=== PATIENT | female | born 1935 | race Caucasian/White ===

== ENCOUNTER → 2017-07-10 | Outpatient (CLI) | payer MEDICARE, OTHER ==
[~2017-07-10] MED LIST: ACETAMINOPHEN325 M1; ALENDRONATE; ALPHAGAN P5 ML OPHTHALMIC; AMBIEN 10 MG TA10 MG PO; ASPIR 8181 M1 PO; ASPIR 8181 MG PO; ASPIRIN325; BRILINTA90 MG PO; BRIMONIDINE TAR15 M1 OP; CARVEDILOL12.5 MG PO; CEFTIN500 MG PO; DOCUSATE SODIU100 MG PO; DOXYCYCLINE 10100 MG PO; FIORICET; HYDROCHLOROTHIA25 M2 PO; HYDROCODON-ACE1 EAC7 PO; IMDUR 30 MG TAB30 M1 PO; IMITREX 50 MG T50 M1; IRON325 PO; LIPITOR 20 MG T20 M1 PO; LIPITOR10 MG PO; LOSARTAN-HCTZ1 EAC3 PO; MOBIC7.5 MG PO; NEURONTIN 300M300 M2 PO; NEURONTIN600 MG PO; NITROGLYCERIN0.4 MG SUBLING; OMEPRAZOLE20 M2; PLAVIX 300 MG300 M1 PO; PLAVIX 75 MG TA75 M1 PO; PREDNISONE 10 M10 MG PO; PREDNISONE 5 MG5 M1 PO; PROTONIX 20 MG20 M1 PO; SIMVASTATIN40 MG PO; SYNTHROID75 MCG PO; TOPROL XL25 MG PO; TYLENOL325 MG PO; VICODIN 5-5001 EACH PO; ZANAFLEX4 M1; ZANTAC 150MG T150 MG PO; ZETIA10 MG PO
--- NOTE | 2017-07-10 15:13 | 2DMMODE ---
[place] [address] 2 D/M-MODE ECHOCARDIOGRAM Name: SOFÍAJENI Yessica Room: [facility]#: [id number] Admission: 07/10/17 Attend Phys: Richardson Chavez Discharge: Date of : 35 Date of Service: 07/10/17 1513 Report #: [id number] THIS REPORT FOR: //name// APPROVED REPORT Study performed: 07/10/2017 10:04:02 EXAM: Comprehensive 2D, Doppler, and color-flow Echocardiogram Patient Location: Out-Patient Status: routine BSA: 1.61 HR: 88 bpm BP: 148/92 mmHg Other Information Study Quality: Good Indications CAD 2D Dimensions LVEF(%): 78.16 (>50%) IVSd: 12.21 (7-11mm) LVOT Diam: 19.54 (18-24mm) LVDd: 34.62 mm PWd: 10.58 (7-11mm) Ascending Ao: 21.55 (22-36mm) LVDs: 18.77 (25-40mm) Aortic Root: 25.09 mm Diaz's LVEF: 78.16 % Volumes Left Atrial Volume (Systole) LA ESV Index: 21.30 mL/m2 Aortic Valve AoV Peak Perico.: 1.20 m/s AO Peak Gr.: 5.80 mmHg LVOT Max P.04 mmHg AO Mean Gr.: 3.49 mmHg LVOT Mean P.03 mmHg LVOT Max V: 0.71 m/s AO V2 VTI: 25.65 cm LVOT Mean V: 0.47 m/s NAMAN (VTI): 1.97 cm2 LVOT V1 VTI: 16.85 cm Mitral Valve E/A Ratio: 0.52 MV Decel. Time: 219.63 [place] [address] 2 D/M-MODE ECHOCARDIOGRAM Name: JENI GORE Yessica Room: [facility]#: [id number] Admission: 07/10/17 Attend Phys: Richardson Chvaez Discharge: Date of : 35 Date of Service: 07/10/17 1513 Report #: [id number] MV E Max Perico.: 0.53 m/s MV PHT: 63.69 ms MVA (PHT): 3.45 cm2 TDI E/Lateral E': 10.60 E/Medial E': 5.89 Medial E' Perico.: 0.09 m/s Lateral E' Perico.: 0.05 m/s Pulmonary Valve PV Peak Perico.: 0.92 m/s PV Peak Gr.: 3.38 mmHg Left Ventricle The left ventricle is normal size. There is normal LV segmental wall motion. There is normal left ventricular wall thickness. Left ventricular systolic function is normal. The left ventricular ejection fraction is within the normal range. LVEF is 55-60%. Grade I - abnormal relaxation pattern. Right Ventricle The right ventricle is normal size. The right ventricular systolic function is normal. Atria Left atrium is mildly dilated. The right atrium size is normal. Aortic Valve The aortic valve is normal in structure. No aortic regurgitation is present. There is no aortic valvular stenosis. Mitral Valve The mitral valve is normal in structure. Trace mitral regurgitation. No evidence of mitral valve stenosis. Tricuspid Valve The tricuspid valve is normal in structure. There is no tricuspid valve regurgitation noted. Pulmonic Valve The pulmonary valve is normal in structure. There is no pulmonic valvular regurgitation. Great Vessels The aortic root is normal in size. IVC is normal in size and collapses with >50% [place] [address] 2 D/M-MODE ECHOCARDIOGRAM Name: JENI GORE [facility] [id number] Admission: 07/10/17 Attend Phys: Richardson Chavez Discharge: Date of : 35 Date of Service: 07/10/17 1513 Report #: [id number] Pericardium There is no pericardial effusion. <Conclusion> The left ventricle is normal size. There is normal left ventricular wall thickness. Left ventricular systolic function is normal. The left ventricular ejection fraction is within the normal range. LVEF is 55-60%. Grade I - abnormal relaxation pattern. The right ventricle is normal size. Left atrium is mildly dilated. The aortic valve is normal in structure. The mitral valve is normal in structure. Trace mitral regurgitation. The tricuspid valve is normal in structure. IVC is normal in size and collapses with >50% inspiration There is no pericardial effusion. There is normal LV segmental wall motion. <ELECTRONICALLY SIGNED> By: Elias Rivas MD, FACC 07/10/17 1513 1513 151 Elias Rivas MD, FACC /INF
== END ==
LOC: M.CRD 09:51
DX: I25.10 Atherosclerotic heart disease of native coronary artery without angina pectoris (principal); I10 Essential (primary) hypertension

== ENCOUNTER 2017-07-25 14:10 | Inpatient (IN) | payer MEDICARE, OTHER ==
[~2017-07-25] VITALS: Ht 147.3 cm; Wt 72.3 kg
[~2017-07-25 14:10] MED LIST changes: -ASPIR 8181 M1 PO; -CARVEDILOL12.5 MG PO; -DOCUSATE SODIU100 MG PO; -LIPITOR 20 MG T20 M1 PO; -LOSARTAN-HCTZ1 EAC3 PO; -PLAVIX 300 MG300 M1 PO; -SIMVASTATIN40 MG PO
[2017-07-25 14:16] VITALS: BP 174/85
[2017-07-25 14:59] LABS: ABSOLUTE BASOPHILS 0.1 thou/uL (0.0-0.2); ABSOLUTE EOSINOPHILS 0.1 thou/uL (0.0-0.7); ABSOLUTE LYMPHOCYTES 1.3 thou/uL (0.8-5.3); ABSOLUTE MONOCYTES 0.7 thou/uL (0.0-1.2); BASOPHILS 0.8 %; EOSINOPHILS 1.3 %; HEMATOCRIT 40.1 % (37.0-47.0); HEMOGLOBIN 13.2 gm/dL (12.0-15.0); LYMPHOCYTES 17.9 %; MCH 29.6 pg (26.0-34.0); MCHC 32.9 g/dL (28.0-37.0); MCV 90.1 fL (80.0-100.0); MONOCYTES 9.8 %; MPV 7.5 fl. (7.2-11.1); NUCLEATED RBCS 0 /100WBC; PLATELET COUNT* 257 thou/uL (150-400); POLYS 70.2 %; RBC 4.45 mil/uL (4.20-5.00); RDW-CV 17.6 % (10.5-14.5); WBC 7.1 thou/uL (4.0-11.0)
[2017-07-25 15:08] LABS: APTT 23.1 Seconds (25.0-31.3); PROTIME 9.9 Seconds (9.20-11.50)
[2017-07-25 15:12] LABS: ANION GAP 12 mmol/L (7-16); BUN 28 mg/dL (7-18); CALCIUM 9.2 mg/dL (8.5-10.1); CHLORIDE 107 mmol/L (98-107); CO2 24 mmol/L (21-32); CREATININE 1.5 mg/dL (0.6-1.3); GLUCOSE 113 mg/dL (70-99); POTASSIUM 4.2 mmol/L (3.5-5.1); SODIUM 143 mmol/L (136-145)
[2017-07-25 15:30] LABS: ALBUMIN 3.7 g/dL (3.4-5.0); ALKALINE PHOSPHATASE 120 U/L (46-116); CK-MB MASS 1.1 ng/mL (<0.5-3.6); LIPASE 228 U/L (73-393); MAGNESIUM 1.9 mg/dL (1.8-2.4); NT-PRO BRAIN NAT PEPTIDE 364 pg/mL (<300); SGOT 19 U/L (15-37); SGPT 21 U/L (30-65); TOTAL BILIRUBIN 0.3 mg/dL (<0.1-1.0); TOTAL PROTEIN 7.3 g/dL (6.4-8.2); TROPONIN-I LEVEL <0.06 ng/mL (<0.06)
[2017-07-25] MEDS ORDERED: CARVEDILOL12.5 MG PO (16:16)
[2017-07-25] MEDS ORDERED: SIMVASTATIN40 MG PO (16:17)
[2017-07-25] MEDS ORDERED: LOSARTAN-HCTZ1 EAC3 PO (16:17)
--- NOTE | 2017-07-25 16:31 | NUR ---
IV ATTEMPTS BY [address] OROURKE ATTEMPTED WITH ULTRA SOUND WITHOUT SUCCESS.
[2017-07-25 17:08] VITALS: BP 138/77
[2017-07-25 18:00] VITALS: BP 180/70
[2017-07-25] MEDS ORDERED: PLAVIX 75 MG TA75 M1 PO (18:23)
--- NOTE | 2017-07-25 18:30 | NUR ---
ER ADMIT TO ROOM 9 VIA CART. ADMISSION ASSESSMENT COMPLETE, DEFER TO COMPUTER CHARTING. PLEASANT, ALERT AND ORIENTED - REPORTS STARTED HAVING LEFT ARM PAIN YESTERDAY, SOME DIZZINESS - INSTURCTED HER TO GO ER. CONTINUES TO REPORT HAVING DISCOMFORT IN LEFT ARM - BUT REPORTS PAIN IMPROVED. DIVISION ORDER TECHNICIAN PLACED TRACKING SR, 02 ON 2L PER NC. ORIENTED TO ROOM/CALL LIGHT AND PLAN OF CARE, VERBALIZED UNDERSTANDING. INSTRUCTED TO CALL FOR ASSIST WHEN GETTING OUT OF BED FOR SAFETY AND TO NOTIFY NURSING PROMPTLY FOR CHEST PAIN OR CHANGE IN CONDITION. CALL LIGHT WITHIN REACH.
--- NOTE | 2017-07-25 18:55 | NUR ---
DR DUNLAP CALLING GIVEN UPDATE ON PATIENT NOTIFIED BP ELEVATED - PATIENT STATING HAS NOT TAKEN HOME MEDICATION TODAY, NEW ORDERS RECEIVED.
[2017-07-25 20:30] VITALS: BP 154/58
[2017-07-25 23:47] VITALS: BP 149/51
[2017-07-26] VITALS (19 sets, daily range): BP systolic 103–149; BP diastolic 42–113
--- NOTE | 2017-07-26 02:32 | NUR ---
TOOK PT INTO CARE AT 1930. ASSESSMENT COMPLETED CHARTED. PT IS A PLEASENT ELDERLY WOMAN WHO IS HERE FOR CHEST PAIN. PT IS NPO FOR CATH TOMORROW. PT IS COOPERATIVE AND IS ABLE TO MAKE NEEDS KNOWN. NO C/O PAIN, C/O INSOMNIA AROUND 12 AND GAVE AMBIEN. IV IN JUGULAR UNABLE TO USE, TRIED GETTING OTHER IVS STARTED WITH NO SUCCESS AND GOT AN ORDER TO START A PICC LINE IN AM. WILL CONTINUE WITH PLAN OF CARE.
[2017-07-26 02:47] LABS: HEMATOCRIT 37.7 % (37.0-47.0); HEMOGLOBIN 12.4 gm/dL (12.0-15.0); MCH 29.3 pg (26.0-34.0); MCV 88.9 fL (80.0-100.0); MPV 7.7 fl. (7.2-11.1); RBC 4.24 mil/uL (4.20-5.00); RDW-CV 17.4 % (10.5-14.5); WBC 6.9 thou/uL (4.0-11.0)
[2017-07-26 03:01] LABS: ANION GAP 13 mmol/L (7-16); BUN 27 mg/dL (7-18); CALCIUM 8.8 mg/dL (8.5-10.1); CHLORIDE 105 mmol/L (98-107); CHOLESTEROL 180 mg/dL (<200); CO2 23 mmol/L (21-32); CREATININE 1.2 mg/dL (0.6-1.3); GLUCOSE 105 mg/dL (70-99); HDL CHOLESTEROL 67 mg/dL (>40); LDL CHOLESTEROL 79 mg/dL (<100); POTASSIUM 3.6 mmol/L (3.5-5.1); SODIUM 141 mmol/L (136-145); TC:HDL 2.7 Ratio (Not establshd); TRIGLYCERIDE 174 mg/dL (<150); VLDL 35 mg/dL (<40)
[2017-07-26 03:04] LABS: SERUM ASSESSMENT CLEAR
[2017-07-26 03:14] LABS: ALBUMIN 3.5 g/dL (3.4-5.0); CALCIUM 8.7 mg/dL (8.5-10.1); CREATININE 1.2 mg/dL (0.6-1.3); MAGNESIUM 1.9 mg/dL (1.8-2.4); POTASSIUM 3.6 mmol/L (3.5-5.1); TOTAL BILIRUBIN 0.3 mg/dL (<0.1-1.0); TOTAL PROTEIN 6.4 g/dL (6.4-8.2)
--- NOTE | 2017-07-26 11:01 | EKG ---
[place] [address] ELECTROCARDIOGRAM REPORT Name: JENI GORE Room: [address] ADM IN .R.#: [id number] Admission: 07/25/17 Attend Phys: Aurelia Page MD Discharge: Date of : 35 Report #: [id number] THIS REPORT FOR: //name// [facility] ED Test Date: 2017-07-25 Test Time: 14:18:41 Pat Name: JENI GORE Department: Room: [facility] Gender: F Airplane Pilot Supervisor: FERNANDO : 1935 Requested By: Reno Villanueva Order Number: [id number] MD: Nazario Soto Measurements Intervals [place] Rate: 85 P: -23 MT: 152 QRS: -24 QRSD: 64 T: 104 QT: 491 QTc: 584 Interpretive Statements Sinus rhythm Abnormal R-wave progression, early transition Inferior infarct, old Consider anterior infarct Prolonged QT interval Compared to ECG 04/12/2017 08:12:11 Prolonged QT interval now present ST (T wave) deviation no longer present Myocardial infarct finding still present Electronically Signed On 07-26-2017 11:01:34 CDT by Nazario Soto [email or web address] <ELECTRONICALLY SIGNED> By: Nazario Soto MD, FACC 07/26/17 1101 1418 1418 Nazario Soto MD, FAC /EPI
--- NOTE | 2017-07-26 15:43 | NUR ---
CM ASSESSMENT: Pt is A&O. Resides at home alone. Supportive children. Pt is independent with ADLS. Pt states that she uses a cane for outside of the home, but states that she does have a walker at home from a past knee replacement. No hx of HH. Hx of skilled at [facility]. No home o2. Pt stated that she should be ready to dc tomorrow. No needs anticipated.
--- NOTE | 2017-07-26 16:00 | NUR ---
VSS, ASSUMED CARE IN THE AM, ASSESSMENT PERFORMED AND CHARTED, FALL PRECAUTIONS IN PLACE AND CALL LIGHT IN REACH, PT IS UP AD ARLETTE AND ON RA AND DENIES ANY PAIN, SHE IS TRACING SR ON THE MONITOR, AND IS A&O4, HER GOAL IS TO COMPLETE HEART CATH, WILL FOLLOW WITH PLAN OF CARE. AT THIS TIME, PT HAS COME BACK FROM HEART CATH AND GOT 2 STENTS IN LAD, AND HAD A RIGHT SHEATH PULLED, PT CAN GET UP AT 1730, SITE WAS A LITTLE BLOOD OOZE AND DR. ALVARADO WAS OK WITH SITE, NO HEAMOTOMA NOTED. PT IS TRACING SR ON THE MONITOR AND HAS SOME PAIN IN LEGS, PT IS ON 2L PRN AND IS A&O4, HOURLY ROUNDS COMPLETED AND REPORT GIVEN TO RN,
--- NOTE | 2017-07-26 20:00 | NUR ---
RECEIVED REPORT AND ASSUMED CARE OF PT, ASSESSMENT COMPLETED. RT GROIN DRSG SATURATED WITH FRESH RED DRAINAGE. INSTRUCTED TO CONT KEEPING RT LEG STRAIGHT. TELEMETRY ON SHOWING SR. DENIES COMPLAINTS. NO SOB NOTED, O2 REMOVED. WILL CONT TO MONITOR AND ASSIST NEEDED.
[2017-07-27 00:10] VITALS: BP 122/72
[2017-07-27 04:48] VITALS: BP 121/45
[2017-07-27 05:10] LABS: HEMATOCRIT 36.7 % (37.0-47.0); HEMOGLOBIN 12.3 gm/dL (12.0-15.0); MCH 29.9 pg (26.0-34.0); MCHC 33.6 g/dL (28.0-37.0); MCV 88.8 fL (80.0-100.0); MPV 7.8 fl. (7.2-11.1); RBC 4.13 mil/uL (4.20-5.00); RDW-CV 18.1 % (10.5-14.5); WBC 7.3 thou/uL (4.0-11.0)
[2017-07-27 05:45] LABS: ALBUMIN 3.2 g/dL (3.4-5.0); CALCIUM 8.9 mg/dL (8.5-10.1); CREATININE 1.5 mg/dL (0.6-1.3); POTASSIUM 3.9 mmol/L (3.5-5.1); TOTAL BILIRUBIN 0.3 mg/dL (<0.1-1.0); TOTAL PROTEIN 6.5 g/dL (6.4-8.2); TROPONIN-I LEVEL 0.18 ng/mL (<0.06)
--- NOTE | 2017-07-27 06:03 | NUR ---
SLEPT WELL TONIGHT. RT GROIN DRSG CHANGED AT APPROX 2130. NO DRAINAGE NOTED AFTER THIS. PT AMBULATED WITH ASSIST TO BR AND BACK. DENIES DIZZINESS BUT STATES WEAK FROM BEING IN BED FOR SO LONG. TELEMETRY CONT TO SHOW SR. NO CHANGE IN ASSESSMENT. HS GOALS OF REST AND SAFETY OBTAINED. HOURLY ROUNDING OBSERVED.
[2017-07-27 08:00] VITALS: BP 87/57
--- NOTE | 2017-07-27 10:13 | CARD ---
[address] [address] CARDIAC CATH REPORT Name: JENI GORE Room: [address] [facility] IN .R.#: [id number] Admission: 07/25/17 Attend Phys: Aurelia Page MD Discharge: Date of : 35 Report #: [id number] THIS REPORT FOR: //name// APPROVED REPORT Study performed: 07/26/2017 08:52:20 Patient Details Patient Status: In-Patient Room #: 209 The patient is a 81 year-old female Event Personnel Elias Rivas Dredge Operator Supervisor, Sondra Burt RN Receiving Clerk, Flakito Kelly (R) Monitor, Juan Diego, Rowena RTR Scrub Procedures Performed ROSARIO Place w/wo Plasty Single LAD; left heart catheterization and selective coronary arteriography Indication Unstable angina Risk Factors Hypercholesterolemia, Hypertension Previous Procedures/Diagnoses Previous PCI, Previous ND Admission/Lab Medications/Medications given during procedure Aspirin, Heparin Unfract. Procedure Narrative The patient was brought electively to the Cardiac Catheterization Laboratory and was prepped and draped in a sterile manner. The right femoral was infiltrated with 1% Lidocaine subcutaneous anesthesia. A [place] 6 FR sheath was inserted into the Right Femoral Artery. Coronary angiography was performed using coronary diagnostic catheters. The right coronary system was accessed and visualized with a Diagnostic 3DRC catheter. The left coronary system was accessed and visualized with a Diagnostic JL 4 catheter. The left ventricle was accessed and visualized with a Diagnostic Straight Pig catheter. Left ventricular/Aortic Valve gradient assessed via catheter pullback. Pre-demployment femoral angiogram was performed . Closure device was deployed with a Fr Angioseal STS 6Fr. [place] [address] CARDIAC CATH REPORT Name: JENI GORE Room: [address] IN [facility]#: [id number] Admission: 07/25/17 Attend Phys: Aurelia Page MD Discharge: Date of : 35 Report #: [id number] procedure well and there were no complications associated with the procedure. There was no hematoma. Intraoperative Conscious Sedation Sedation start time: 10:19 Case end Time: 11:08 Fentanyl 25 mcg Versed 1 mg Fluoro Time: 11.6 minutes Dose: DAP 22647 cGycm2 1150 mGy Contrast Type and Amount: Visipaque 255 ml Coronary Angiography The patient's coronary anatomy is right dominant. Diagnostic Cath Left Main 0% narrowing LAD 40% proximal narrowing with 80% focal mid LAD stenosis Circumflex Widely patent circumflex and first marginal stents with 0% residual narrowing Right Coronary 100% proximal occlusion with fhrf-ov-dxrkq collaterals filling the distal right coronary artery Left Ventriculography Left Ventriculography was not performed. Hemodynamics The aortic pressure is 152/58 mmHg with a mean of 72 mmHg. The left ventricular pressure is 163/7 mmHg with a mean of mmHg. The left ventricular end diastolic pressure is 13 mmHg. There was no gradient across the aortic valve upon pullback. PCI Technique Lesion Anticoagulation was achieved with Heparin. Patient was preloaded with Heparin IV 7000 units. Percutaneous coronary intervention was performed on the mid left anterior descending artery segment. The lesion stenosis prior to intervention was 80% with DAGOBERTO 3 flow. A 6FR XB 3.0 100CM Guide Catheter was used to engage the ostium. A IG: ProwaterFlex 180CM Interventional Guidewire was used to cross the lesion. BALLOON DILATION A Balloon catheter NC Trek RX 2.25 X 8 was inserted and inflated up to 16.00atm for 16seconds. Additional Inflation: 16.00atm [place] 11seconds. [place] [address] CARDIAC CATH REPORT Name: JENI GORE Room: [address] IN [facility]#: [id number] Admission: 07/25/17 Attend Phys: Aurelia Page MD Discharge: Date of : 35 Report #: [id number] STENT DEPLOYMENT A drug-eluting stent Xience Alpine RX 2.25X15,2.5x15 Xience was inserted and inflated up to 12.00atm for 12seconds. Additional Inflation: 15.00atm for 13seconds. Final angiography reveals 0 % stenosis with DAGOBERTO 3 flow. PCI Technique Lesion Percutaneous coronary intervention was performed on the mid left anterior descending artery segment. A 6FR XB 3.0 100CM Guide Catheter was used to engage the ostium. A IG: ProwaterFlex 180CM Interventional Guidewire was used to cross the lesion. STENT DEPLOYMENT A drug-eluting stent Xience Alpine RX 2.5X15 was inserted and inflated up to 10.00atm for 14seconds. Additional Inflation: 14.00atm for 13seconds. Conclusion #1 significant coronary artery disease characterized by the following: A 40% tubular proximal and 80% focal mid LAD stenosis, B widely patent mid circumflex and first marginal stents, C1 100% proximal right coronary occlusion with mzmj-yz-idypk collaterals filling the distal right coronary artery #2 mild systemic systolic hypertension with normal left ventricular end-diastolic pressure at rest #3 successful percutaneous coronary intervention with deployment of sequential drug-eluting stents at the site of 80% mid LAD stenosis with 0% residual narrowing following stent deployment and DAGOBERTO-3 flow to the distal vessel. Recommendations Cardiac Risk Reduction Program Aggressive Medical Therapy Medications Administered Aspirin (any) [place] [address] CARDIAC CATH REPORT Name: JENI GORE Yessica Room: [address] IN [facility]#: [id number] Admission: 07/25/17 Attend Phys: Aurelia Page MD Discharge: Date of : 35 Report #: [id number] Diagnostic Cath Approved by: Elias Rivas MD Date/Time: 07/27/17 at 1011 hours <ELECTRONICALLY SIGNED> By: Elias Rivas MD, FACC 07/27/17 1012 1012 1012Josudha Rivas MD, FAC /INF
[2017-07-27 10:31] VITALS: BP 122/53
--- NOTE | 2017-07-27 12:31 | NUR ---
VSS, ASSUMED CARE IN THE AM, ASSESSMENT PERFORMED AND CHARTED, FALL PRECAUTIONS IN PLACE AND CALL LIGHT IN REACH, PT IS UP AD ARLETTE TRACING SR ON THE MONITOR AND ON RA, A&O4 AND HER RIGHT DANIKA POST CATH SIT IS C.D.I WITH NO HEMOTOMA. PT GOAL IS TO D/C TO HOME ON DAY OF. SHE DENIES ANY PAIN AT THIS TIME
[2017-07-27] MEDS ORDERED: BRILINTA90 MG PO (14:06)
[2017-07-27] MEDS ORDERED: ASPIR 8181 M1 PO (14:07)
--- NOTE | 2017-07-27 14:34 | NUR ---
vss, RECEIVED D/C ORDERS, REMOVED IV AND TELE MONITOR REMOVED, PROVITED D/C D/C PAPERS AND INSRUCIONS. PT RECIEVED SCRIPS AND MEDICATION INFORMATION SHEETS, ATHERED PT BELONGNGS AND WAS AKEN OUT BY STAFF AND WHEEL CHAIR. PT DENIES POWER QUESTIONS OR CONCERNS AT TIME OF D/C. HOURLY ROUNDS COMPLETED.
--- NOTE | 2017-07-27 14:34 | EKG ---
[place] [address] ELECTROCARDIOGRAM REPORT Name: JENI GORE Room: [address] ADM IN M.R.#: [id number] Admission: 07/25/17 Attend Phys: Aurelia Page MD Discharge: Date of : 35 Report #: [id number] THIS REPORT FOR: //name// [facility] Test Date: 2017-07-26 Test Time: 13:04:26 Pat Name: JENI GORE Department: Room: [address] Gender: F Outsole Rounder: : 1935 Requested By: Elias Rivas Order Number: [id number] Yonis MD: Oleg Cardona Measurements Intervals [place] Rate: 67 P: -14 IN: 186 QRS: -28 QRSD: 80 T: -58 QT: 448 QTc: 473 Interpretive Statements Sinus rhythm Inferior infarct, old Abnrm T, consider ischemia, anterolateral lds Low voltage limb leads Compared to ECG 07/25/2017 14:18:41 Possible ischemia now present Prolonged QT interval no longer present Myocardial infarct finding still present Electronically Signed On 07-27-2017 14:34:30 CDT by Oleg Cardona [email or web address] <ELECTRONICALLY SIGNED> By: Oleg Cardona MD, FACC 07/27/17 1434 1304 1304 Oleg Cardona MD, FAC /EPI
--- NOTE | 2017-07-27 14:38 | EKG ---
[place] [address] ELECTROCARDIOGRAM REPORT Name: JENI GORE Room: [address] ADM IN M.R.#: [id number] Admission: 07/25/17 Attend Phys: Aurelia Page MD Discharge: Date of : 35 Report #: [id number] THIS REPORT FOR: //name// [facility] Test Date: 2017-07-27 Test Time: 07:50:35 Pat Name: JENI GORE Department: Room: [address] Gender: F Heading Maker: 27 : 1935 Requested By: Elias Rivas Order Number: [id number] Yonis MD: Oleg Cardona Measurements Intervals [place] Rate: 60 P: -27 OK: 187 QRS: -18 QRSD: 109 T: -59 QT: 543 QTc: 543 Interpretive Statements Sinus rhythm Inferior infarct, old Lateral leads are also involved Prolonged QT interval Compared to ECG 07/25/2017 14:18:41 No significant changes Electronically Signed On 07-27-2017 14:38:38 CDT by Oleg Cardona [email or web address] <ELECTRONICALLY SIGNED> By: Oleg Cardona MD, [facility] 07/27/17 1438 0750 0750 Oleg Cardona MD, [facility] /EPI
== END 2017-07-27 14:35 | disposition home or self-care (01) | DRG 247 ==
LOC: M.ERS 14:10 → M.2W 16:04 → M.TBA-ER 16:04 → M.2W 17:39
PROVIDERS: Emergency Medicine Emergency Medical Services; Internal Medicine; Nurse Practitioner Family; ADMIT Internal Medicine
PROC: 4A023N7 Measurement of Cardiac Sampling and Pressure, Left Heart, Percutaneous Approach (ICD-10-PCS; principal; 2017-07-25)
PROC: 05HY33Z Insertion of Infusion Device into Upper Vein, Percutaneous Approach (ICD-10-PCS; principal; 2017-07-25)
PROC: B2111ZZ Fluoroscopy of Multiple Coronary Arteries using Low Osmolar Contrast (ICD-10-PCS; principal; 2017-07-25)
PROC: B54MZZA Ultrasonography of Right Upper Extremity Veins, Guidance (ICD-10-PCS; principal; 2017-07-25)
PROC: 027236Z Dilation of Coronary Artery, Three Arteries with Three Drug-eluting Intraluminal Devices, Percutaneous Approach (ICD-10-PCS; principal; 2017-07-25)
DX: I25.110 Atherosclerotic heart disease of native coronary artery with unstable angina pectoris (principal); I12.9 Hypertensive chronic kidney disease with stage 1 through stage 4 chronic kidney disease, or unspecified chronic kidney disease; N18.3 Chronic kidney disease, stage 3 (moderate); Z96.1 Presence of intraocular lens; Z96.653 Presence of artificial knee joint, bilateral; M10.9 Gout, unspecified; H40.9 Unspecified glaucoma; E78.5 Hyperlipidemia, unspecified; E03.9 Hypothyroidism, unspecified; I25.2 Old myocardial infarction; Z90.710 Acquired absence of both cervix and uterus; Z98.42 Cataract extraction status, left eye; Z98.41 Cataract extraction status, right eye; Z85.42 Personal history of malignant neoplasm of other parts of uterus; Z95.5 Presence of coronary angioplasty implant and graft; Z86.73 Personal history of transient ischemic attack (TIA), and cerebral infarction without residual deficits; Z79.899 Other long term (current) drug therapy; Z79.82 Long term (current) use of aspirin; Z88.8 Allergy status to other drugs, medicaments and biological substances; Z88.2 Allergy status to sulfonamides; Z82.49 Family history of ischemic heart disease and other diseases of the circulatory system; Z83.3 Family history of diabetes mellitus; Z80.9 Family history of malignant neoplasm, unspecified; Z87.01 Personal history of pneumonia (recurrent)

== ENCOUNTER → 2017-08-09 | Outpatient (CLI) | payer MEDICARE, OTHER ==
[~2017-08-09] MED LIST changes: +ASPIR 8181 M1 PO; +CARVEDILOL12.5 MG PO; +DOCUSATE SODIU100 MG PO; +LIPITOR 20 MG T20 M1 PO; +LOSARTAN-HCTZ1 EAC3 PO; +PLAVIX 300 MG300 M1 PO; +SIMVASTATIN40 MG PO
[2017-08-09 13:20] LABS: ABSOLUTE BASOPHILS 0.1 thou/uL (0.0-0.2); ABSOLUTE EOSINOPHILS 0.1 thou/uL (0.0-0.7); ABSOLUTE LYMPHOCYTES 1.2 thou/uL (0.8-5.3); ABSOLUTE MONOCYTES 0.7 thou/uL (0.0-1.2); ABSOLUTE NEUTROPHILS 6.1 thou/uL (1.6-8.1); BASOPHILS 1.3 %; HEMATOCRIT 37.8 % (37.0-47.0); HEMOGLOBIN 12.5 gm/dL (12.0-15.0); LYMPHOCYTES 15.1 %; MCH 29.6 pg (26.0-34.0); MCV 89.6 fL (80.0-100.0); MONOCYTES 8.2 %; MPV 7.3 fl. (7.2-11.1); NUCLEATED RBCS 0 /100WBC; PLATELET COUNT* 261 thou/uL (150-400); POLYS 74.4 %; RBC 4.22 mil/uL (4.20-5.00); RDW-CV 16.5 % (10.5-14.5); WBC 8.3 thou/uL (4.0-11.0)
[2017-08-09 13:26] LABS: CALCIUM 9.4 mg/dL (8.5-10.1); CREATININE 1.5 mg/dL (0.6-1.3); POTASSIUM 4.3 mmol/L (3.5-5.1)
== END ==
LOC: M.LAB 12:57
PROVIDERS: Nurse Practitioner Family
DX: I50.33 Acute on chronic diastolic (congestive) heart failure (principal); I25.10 Atherosclerotic heart disease of native coronary artery without angina pectoris; I12.9 Hypertensive chronic kidney disease with stage 1 through stage 4 chronic kidney disease, or unspecified chronic kidney disease; N18.3 Chronic kidney disease, stage 3 (moderate); E78.2 Mixed hyperlipidemia; D64.9 Anemia, unspecified

== ENCOUNTER → 2017-08-28 | Outpatient (CLI) | payer MEDICARE, OTHER ==
[2017-08-28 13:01] LABS: ANION GAP 15 mmol/L (7-16); BUN 38 mg/dL (7-18); CALCIUM 9.6 mg/dL (8.5-10.1); CHLORIDE 99 mmol/L (98-107); CO2 25 mmol/L (21-32); CREATININE 1.8 mg/dL (0.6-1.3); GLUCOSE 121 mg/dL (70-99); POTASSIUM 4.1 mmol/L (3.5-5.1); SODIUM 139 mmol/L (136-145); TROPONIN-I LEVEL <0.06 ng/mL (<0.06)
== END ==
LOC: M.LAB 12:06
PROVIDERS: Nurse Practitioner Family
DX: I10 Essential (primary) hypertension (principal); I20.9 Angina pectoris, unspecified

== ENCOUNTER 2017-09-06 09:02 | Inpatient (IN) | payer MEDICARE, OTHER ==
[~2017-09-06] VITALS: Ht 147.3 cm; Wt 68.9 kg
[2017-09-06] VITALS (17 sets, daily range): BP systolic 126–176; BP diastolic 46–79
--- NOTE | ~2017-09-06 | H ---
[address] [address] HISTORY AND PHYSICAL Name: EJNI GORE Room: [address] IN M.R.#: [id number] Admission: 09/06/17 Attend Phys: Elias Rivas MD, Discharge: 09/07/17 Date of : 35 Report #: [id number] THIS REPORT FOR: //name// Please refer to the History and Physical performed in the physician's office. By: [facility] Staff KATLIN /SCOT
[~2017-09-06 09:02] MED LIST changes: -DOCUSATE SODIU100 MG PO; -LIPITOR 20 MG T20 M1 PO; -PLAVIX 300 MG300 M1 PO
[2017-09-06 09:48] LABS: HEMATOCRIT 35.4 % (37.0-47.0); MCH 31.2 pg (26.0-34.0); MCHC 33.9 g/dL (28.0-37.0); MCV 91.9 fL (80.0-100.0); MPV 7.6 fl. (7.2-11.1); RBC 3.85 mil/uL (4.20-5.00); RDW-CV 14.8 % (10.5-14.5); WBC 6.5 thou/uL (4.0-11.0)
[2017-09-06 09:57] LABS: APTT 23.2 Seconds (25.0-31.3); PROTIME 9.6 Seconds (9.20-11.50)
[2017-09-06 09:58] LABS: ANION GAP 11 mmol/L (7-16); BUN 29 mg/dL (7-18); CALCIUM 9.7 mg/dL (8.5-10.1); CHLORIDE 105 mmol/L (98-107); CO2 23 mmol/L (21-32); CREATININE 1.5 mg/dL (0.6-1.3); GLUCOSE 123 mg/dL (70-99); POTASSIUM 4.3 mmol/L (3.5-5.1); SODIUM 139 mmol/L (136-145)
[2017-09-06 10:02] LABS: ALBUMIN 3.5 g/dL (3.4-5.0); ALKALINE PHOSPHATASE 111 U/L (46-116); CHOLESTEROL 200 mg/dL (<200); HDL CHOLESTEROL 65 mg/dL (>40); LDL CHOLESTEROL 101 mg/dL (<100); SGOT 22 U/L (15-37); SGPT 27 U/L (30-65); TC:HDL 3.1 Ratio (Not establshd); TOTAL BILIRUBIN 0.4 mg/dL (<0.1-1.0); TOTAL PROTEIN 7.3 g/dL (6.4-8.2); TRIGLYCERIDE 171 mg/dL (<150); VLDL 34 mg/dL (<40)
[2017-09-06 10:03] LABS: SERUM ASSESSMENT Clear
--- NOTE | 2017-09-06 16:17 | CARD ---
[address] [address] CARDIAC CATH REPORT Name: JENI GORE Room: [address] IN .R.#: [id number] Admission: 09/06/17 Attend Phys: Elias Rivas MD, Discharge: Date of : 35 Report #: [id number] THIS REPORT FOR: //name// APPROVED REPORT Study performed: 09/06/2017 11:29:41 Patient Details Patient Status: OP Room #: The patient is a 81 year-old female Event Personnel Elias Rivas Unemployment Inspector, Rowena Adamson RTR Monitor, Easton Morin Hintermaier, Elena RN naval special warfare medic Performed Art Access - R femoral artery* Left Heart Cath w/LT VGram [id number] [facility] ROSARIO Place w/wo Plasty Single LAD [id number] Hemostasis w/ Mynx Indication Unstable angina Risk Factors Hypercholesterolemia, Hypertension Previous Procedures/Diagnoses Previous PCI Admission/Lab Medications/Medications given during procedure Aspirin, Platelet Aff. Inhib., Angiomax bolus and infusion Procedure Narrative The patient was brought electively to the Cardiac Catheterization Laboratory and was prepped and draped in a sterile manner. The right femoral was infiltrated with 1% Lidocaine subcutaneous anesthesia. A [place] 6 FR sheath was inserted into the right femoral artery. Coronary angiography was performed using coronary diagnostic catheters. The right coronary system was accessed and visualized with a 6FR JR4 catheter. The left coronary system was accessed and visualized with a 6FR JL4 catheter. The left ventricle was accessed and visualized with a 6FR Pigtail catheter. Left ventricular/Aortic Valve gradient assessed via catheter pullback. Pre-demployment femoral angiogram was performed . Closure device was deployed with a 6 Fr Mynx. The patient tolerated the procedure well and there were no [facility] [address] [place] [address] CARDIAC CATH REPORT Name: JENI GORE Room: [address] IN [facility]#: [id number] Admission: 09/06/17 Attend Phys: Elias Rivas MD, Discharge: Date of : 35 Report #: [id number] complications associated with the procedure. Intraoperative Conscious Sedation Sedation start time: 12:38 Case end Time: 13:50 Fentanyl 100 mcg Versed 4 mg Fluoro Time: 16.6 minutes Dose: DAP 115543 cGycm2 1835.52 mGy Contrast Type and Amount: Visipaque 320 ml Diagnostic Cath Left Main 0% narrowing LAD 75% tubular proximal LAD stenosis with widely patent mid LAD stents and 75% mid to distal LAD in-stent narrowing Circumflex Nondominant vessel with 60% distal narrowing and 30% narrowing of the proximal portion of the first marginal branch Right Coronary Previously defined 100 percent total occlusion proximally with hasj-bl-nnvyd collaterals filling the distal right coronary artery IVUS Fractional Flow [place] was performed on the proximal left anterior descending artery segment vessel. A 6 Urdu XB 3 Guide Catheter was used to engage the ostium. IVUS Findings Minimal FFR was 0.77 after adenosine provocation, suggesting hemodynamically significance Hemodynamics The aortic pressure is 189/67 mmHg with a mean of 114 mmHg. The left ventricular pressure is 185/7 mmHg with a mean of mmHg. The left ventricular end diastolic pressure is 19 mmHg. PCI Technique Lesion Anticoagulation was achieved with Angiomax. Percutaneous coronary intervention was performed on the proximal left anterior descending artery segment. The lesion stenosis prior to intervention was 75% with DAGOBERTO 3 flow. A 6FR XB 3.0 100CM Guide Catheter was used to engage the ostium. A IG: ProwaterFlex 180CM Interventional Guidewire was used to cross the lesion. BALLOON DILATION A Balloon catheter Trek RX 2.5 X 15 was inserted [place] [address] CARDIAC CATH REPORT Name: JENI GORE Room: [address] IN [facility]#: [id number] Admission: 09/06/17 Attend Phys: Elias Rivas MD, Discharge: Date of : 35 Report #: [id number] 14.00atm for 6seconds. Additional Inflation: 14.00atm for 6seconds. Additional Inflation: 12.00atm for 4seconds. STENT DEPLOYMENT A drug-eluting stent Xience Alpine RX 2.5X18 was inserted and inflated up to 12atm for 10seconds. Additional Inflation: 12.00atm for 6seconds. Additional Inflation: 8.00atm for 12seconds. PCI Technique Lesion The lesion stenosis prior to intervention was proximal left anterior descending artery segment% with DAGOBERTO 6 Urdu XB 3 flow. BALLOON DILATION A Balloon catheter Minimal FFR was 0.77 after adenosine provocation, suggesting hemodynamically significance was inserted and inflated up to kasia for seconds. PCI Technique Lesion 2 Percutaneous Coronary Intervention was performed on the mid left anterior descending artery segment. The lesion stenosis prior to intervention was 7075% with DAGOBERTO 3 flow. Balloon Dilation A Balloon catheter Trek RX 2.5 X 15 was inserted and inflated up to 12.00atm for 10seconds. Post Stent Deployment Balloon Dilation A Balloon catheter NC Eup[place] 2.5x12 was inserted and inflated up to 18.00atm for 6seconds. Additional Inflation: 19.00atm for 7seconds. Final angiography reveals 20 % stenosis with DAGOBERTO 3 flow. Conclusion #1 significant coronary artery disease characterized by the following: A 75% tubular proximal LAD stenosis with widely patent mid LAD stents and 75% mid to distal LAD in-stent narrowing B nondominant circumflex with 60% distal narrowing and 30% narrowing of the proximal portion of the first marginal branch C previously defined total occlusion of the proximal right coronary artery with csyk-nn-iumjx collaterals [place] [address] CARDIAC CATH REPORT Name: JENI GORE Room: [address] IN [facility].#: [id number] Admission: 09/06/17 Attend Phys: Elias Rivas MD, Discharge: Date of : 35 Report #: [id number] coronary artery #2 moderate systemic systolic hypertension with modest elevation of left ventricular end-diastolic pressure at rest #3 successful percutaneous coronary intervention with deployment of a drug-eluting stent at the site of 75% tubular proximal LAD stenosis with 0% residual narrowing following stent deployment and DAGOBERTO-3 flow the distal vessel #4 successful percutaneous transluminal coronary angioplasty at the site of 75% mid to distal LAD in-stent restenosis with 20% residual narrowing following final dilatation #5 fractional flow reserve pertinent to the proximal LAD lesion with a minimum value 0.77 suggesting hemodynamics significance Recommendations Cardiac Risk Reduction Program Aggressive Medical Therapy Diagnostic Cath Approved by: Elias Rivas MD Date/Time: 09/06/17 at 1615 hrs. <ELECTRONICALLY SIGNED> By: Elias Rivas MD, FACC 09/06/17 161 15 15Elias Rivas MD, FACC /INF
--- NOTE | 2017-09-06 16:30 | NUR ---
RECEIVED REPORT FROM CLIENT TECHNOLOGIES ANALYST, PT. ARRIVED TO ROOM 206 AND TRANSFERED TO BED VIA SLIDE. PT A/OX4, VSS, MONITOR PLACED TRACING SR. RIGHT GROIN CATH SITE WITH C/D/I DRESSING, SMALL PUNCTURE BRUISING AROUND SITE, HOWEVER SOFT WITH NO HEMATOMA NOTED AND PALPABLE PEDIAL PULSES. PT. DENIES CURRENT CP/SOB. ON RA ROOM AIR. PT. INSTRUCTED ON S/S OF BLEEDING AND LAYING FLAT UNTIL 2014, PT. STATED UNDERSTANDING. PT. ORIENTED TO ROOM, CALL LIGHT IN REACH, WILL CONTINUE WITH PLAN OF CARE.
--- NOTE | 2017-09-06 20:00 | NUR ---
PT. STABLE THROUGH REMAINDER OF SHIFT. CONTINUES TO DENY PAIN, HOWEVER C/O OF JUST FEELING "SLEEPY", AND YAWNING ALOT. PT. REPORTS THAT WHEN SHE YAWNS ALOT SHE USUALLY HAS A MIGRAINE COMING ON. PT. STATES SHE TAKES HYDROCODONE FOR THIS AND WOULD LIKE SOME AT BEDTIME, REPORTED TO NOC RN TO FOLLOW UP. RIGHT GROIN CATH SITES REMAINS C/D/I, SOFT WITH GOOD PEDAL PULSE. HOURLY ROUNDING COMPLETED THROUGH OUT SHIFT FOR PT. SAFETY.
--- NOTE | 2017-09-06 20:00 | NUR ---
RECEIVED REPORT AND ASSUMED CARE OF PT, ASSESSMENT COMPLETED. REINFORCED TO KEEP RT LEG STRAIGHT. RT GROIN DRSG DRY AND INTACT. NO HEMATOMA, REDNESS OR DRAINAGE. SOLORZANO REMAINS IN PLACE. TELEMETRY SHOWING SR. WILL CONT TO MONITOR AND ASSIST NEEDED.
[2017-09-07 00:41] VITALS: BP 123/77
[2017-09-07 04:27] VITALS: BP 166/70
[2017-09-07 04:52] LABS: HEMATOCRIT 33.6 % (37.0-47.0); MCH 30.4 pg (26.0-34.0); MCHC 32.9 g/dL (28.0-37.0); MCV 92.5 fL (80.0-100.0); MPV 7.7 fl. (7.2-11.1); RBC 3.63 mil/uL (4.20-5.00); WBC 7.4 thou/uL (4.0-11.0)
[2017-09-07 05:34] LABS: CALCIUM 8.7 mg/dL (8.5-10.1); CREATININE 1.3 mg/dL (0.6-1.3); TOTAL BILIRUBIN 0.5 mg/dL (<0.1-1.0); TOTAL PROTEIN 5.7 g/dL (6.4-8.2)
[2017-09-07 05:41] LABS: TROPONIN-I LEVEL 0.63 ng/mL (<0.06)
[2017-09-07 07:00] VITALS: BP 147/59
--- NOTE | 2017-09-07 07:03 | NUR ---
SLEPT WELL TONIGHT. RT GROIN REMAINS INTACT WITHOUT HEMATOMA. LAUREN LOWER LEGS AND ANKLES WITH 2+ EDEMA. TELEMETRY SHOWING SR. MET HS GOALS OF REST AND SAFETY. HOURLY ROUNDING OBSERVED.
--- NOTE | 2017-09-07 08:59 | NUR ---
ASSESSMENT COMPLETED REFER TO COMPUTER CHARTING. RIVER BOAT CAPTAIN TRACKING SR TO SA. BED IN LOW AND LOCKED POSITION. CALL LIGHT WITHIN REACH. PATIENT REPORTING NO PAIN, NAUSEA OR SHORTNESS OF BREATH. IV SALINE LOCKED. PATIENT ON ROOM AIR. RIGHT GROIN SITE FROM POST CARDIAC CATH BRUISED AT INJECTIONS SITE. NO PAIN, TO GROIN. PATIENT UP IN ROOM BY SELF. FAMILY AT BEDSIDE. WILL CONTINUE TO MONITOR THIS SHIFT.
[2017-09-07 09:49] VITALS: BP 155/76
[2017-09-07] MEDS ORDERED: LIPITOR 20 MG T20 M1 PO (12:32)
[2017-09-07] MEDS ORDERED: DOCUSATE SODIU100 MG PO (12:33)
--- NOTE | 2017-09-07 13:06 | EKG ---
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: : 1935 Requested By: Elias Rivas Order Number: [id number] Reading MD: Nazario Soto Measurements Intervals [place] Rate: 61 P: -14 AL: 189 QRS: -14 QRSD: 76 T: -5 QT: 431 QTc: 434 Interpretive Statements Sinus rhythm Inferior infarct, old Compared to ECG 07/27/2017 07:50:35 Prolonged QT interval no longer present Myocardial infarct finding still present Electronically Signed On 09-07-2017 13:06:02 CDT by Nazario Soto [email or web address] <ELECTRONICALLY SIGNED> By: Nazario Soto MD, [facility] 09/07/17 1306 0942 0942 Nazario Soto MD, [facility] /EPI
--- NOTE | 2017-09-07 13:07 | EKG ---
[place] [address] ELECTROCARDIOGRAM REPORT Name: JENI GORE Room: [address] IN .R.#: [id number] Admission: 09/06/17 Attend Phys: Elias Rivas MD, Discharge: 09/07/17 Date of : 35 Report #: [id number] THIS REPORT FOR: //name// [facility] Test Date: 2017-09-06 Test Time: 14:26:16 Pat Name: JENI GORE Department: Room: Gender: F Head Of Partner Development: : 1935 Requested By: Elias Rivas Order Number: [id number] Reading MD: Nazario Soto Measurements Intervals [place] Rate: 74 P: 48 MD: 201 QRS: -9 QRSD: 109 T: 16 QT: 471 QTc: 523 Interpretive Statements Sinus rhythm Inferior infarct, old Lateral leads are also involved Prolonged QT interval Compared to ECG 07/27/2017 07:50:35 No significant changes Electronically Signed On 09-07-2017 13:07:14 CDT by Nazario Soto [email or web address] <ELECTRONICALLY SIGNED> By: Nazario Soto MD, [facility] 09/07/17 1307 1426 1426 Nazario Soto MD, [facility] /EPI
--- NOTE | 2017-09-07 13:09 | EKG ---
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: : 1935 Requested By: Elias Rivas Order Number: [id number] Reading MD: Nazario Soto Measurements Intervals [place] Rate: 66 P: 4 ME: 185 QRS: -14 QRSD: 75 T: -7 QT: 380 QTc: 399 Interpretive Statements Sinus rhythm Inferior infarct, old Compared to ECG 07/27/2017 07:50:35 Prolonged QT interval no longer present Myocardial infarct finding still present Electronically Signed On 09-07-2017 13:09:01 CDT by Nazario Soto [email or web address] <ELECTRONICALLY SIGNED> By: Nazario Soto MD, [facility] 09/07/17 1309 0808 0808 Nazario Soto MD, [facility] /EPI
== END 2017-09-07 12:55 | disposition home or self-care (01) | DRG 246 ==
LOC: M.CL 09:02 → M.TBA-CV 14:12 → M.2W 16:12
PROVIDERS: ADMIT Internal Medicine
PROC: 027034Z Dilation of Coronary Artery, One Artery with Drug-eluting Intraluminal Device, Percutaneous Approach (ICD-10-PCS; principal; 2017-09-06)
PROC: 4A023N7 Measurement of Cardiac Sampling and Pressure, Left Heart, Percutaneous Approach (ICD-10-PCS; principal; 2017-09-06)
PROC: B2151ZZ Fluoroscopy of Left Heart using Low Osmolar Contrast (ICD-10-PCS; principal; 2017-09-06)
PROC: B2111ZZ Fluoroscopy of Multiple Coronary Arteries using Low Osmolar Contrast (ICD-10-PCS; principal; 2017-09-06)
DX: I25.110 Atherosclerotic heart disease of native coronary artery with unstable angina pectoris (principal); N17.0 Acute kidney failure with tubular necrosis; I50.32 Chronic diastolic (congestive) heart failure; E78.5 Hyperlipidemia, unspecified; I10 Essential (primary) hypertension; Z79.82 Long term (current) use of aspirin; Z79.899 Other long term (current) drug therapy

== ENCOUNTER → 2017-11-12 | Outpatient (CLI) | payer MEDICARE, OTHER ==
[~2017-11-12] MED LIST changes: +DOCUSATE SODIU100 MG PO; +LIPITOR 20 MG T20 M1 PO; +PLAVIX 300 MG300 M1 PO
== END ==
LOC: M.ULTRA 10:55
DX: R42 Dizziness and giddiness (principal); W19.XXXD Unspecified fall, subsequent encounter

== ENCOUNTER 2018-02-05 12:33 | Emergency (ER) | payer MEDICARE, OTHER ==
[~2018-02-05] VITALS: Ht 147.3 cm; Wt 67.6 kg
[~2018-02-05 12:33] MED LIST changes: -PLAVIX 300 MG300 M1 PO
[2018-02-05 12:55] LABS: ABSOLUTE BASOPHILS 0.1 thou/uL (0.0-0.2); ABSOLUTE EOSINOPHILS 0.1 thou/uL (0.0-0.7); ABSOLUTE LYMPHOCYTES 1.4 thou/uL (0.8-5.3); ABSOLUTE MONOCYTES 0.9 thou/uL (0.0-1.2); ABSOLUTE NEUTROPHILS 5.4 thou/uL (1.6-8.1); BASOPHILS 1.2 %; EOSINOPHILS 0.9 %; HEMATOCRIT 33.9 % (37.0-47.0); HEMOGLOBIN 10.9 gm/dL (12.0-15.0); LYMPHOCYTES 18.1 %; MCH 27.5 pg (26.0-34.0); MCHC 32.3 g/dL (28.0-37.0); MCV 85.2 fL (80.0-100.0); MPV 7.4 fl. (7.2-11.1); NUCLEATED RBCS 0 /100WBC; PLATELET COUNT* 318 thou/uL (150-400); POLYS 68.8 %; RBC 3.98 mil/uL (4.20-5.00); WBC 7.9 thou/uL (4.0-11.0)
[2018-02-05 13:03] LABS: ANION GAP 10 mmol/L (7-16); BUN 33 mg/dL (7-18); CALCIUM 9.2 mg/dL (8.5-10.1); CHLORIDE 101 mmol/L (98-107); CO2 25 mmol/L (21-32); CREATININE 1.7 mg/dL (0.6-1.3); GLUCOSE 116 mg/dL (70-99); POTASSIUM 4.2 mmol/L (3.5-5.1); SODIUM 136 mmol/L (136-145)
[2018-02-05 13:07] LABS: APTT 22.9 Seconds (25.0-31.3)
[2018-02-05 13:14] LABS: ALBUMIN 3.8 g/dL (3.4-5.0); ALKALINE PHOSPHATASE 141 U/L (46-116); LIPASE 306 U/L (73-393); NT-PRO BRAIN NAT PEPTIDE 753 pg/mL (<300); SGOT 19 U/L (15-37); SGPT 16 U/L (30-65); TOTAL BILIRUBIN 0.4 mg/dL (<0.1-1.0); TOTAL PROTEIN 7.4 g/dL (6.4-8.2); TROPONIN-I LEVEL <0.06 ng/mL (<0.06)
[2018-02-05] MEDS ORDERED: PLAVIX 300 MG300 M1 PO (13:43)
--- NOTE | 2018-02-05 14:21 | EKG ---
[place] [address] ELECTROCARDIOGRAM REPORT Name: JENI GORE Room: [facility]#: [id number] Admission: 02/05/18 Attend Phys: Discharge: Date of : 35 Report #: [id number] THIS REPORT FOR: //name// [facility] ED Test Date: 2018-02-05 Test Time: 12:41:47 Pat Name: JENI GORE Department: Room: Gender: F Embalmer Assistant: Ivana SUTHERLAND : 1935 Requested By: Katie Rey Order Number: [id number] MD: George Borges Measurements Intervals [place] Rate: 63 P: -10 [place]: 193 QRS: -6 QRSD: 84 T: 24 QT: 534 QTc: 547 Interpretive Statements Sinus rhythm Atrial premature complex Inferior infarct, old low voltage nonspecific t wave changes Compared to ECG 09/07/2017 08:08:04 Atrial premature complex(es) now present Myocardial infarct finding still present Electronically Signed On 02-05-2018 14:21:29 CDT by George Borges [email or web address] <ELECTRONICALLY SIGNED> By: George Borges MD, [facility] 02/05/18 1421 1241 1241 George Borges MD, [facility] /EPI
[2018-02-05 14:46] VITALS: BP 136/42
== END 2018-02-05 14:47 | disposition home or self-care (01) ==
LOC: M.ERS 12:33
PROVIDERS: Personal Emergency Response Attendant
DX: R07.89 Other chest pain (principal); M79.602 Pain in left arm; I10 Essential (primary) hypertension; M10.9 Gout, unspecified; Z85.42 Personal history of malignant neoplasm of other parts of uterus; Z90.710 Acquired absence of both cervix and uterus; Z96.659 Presence of unspecified artificial knee joint; Z86.73 Personal history of transient ischemic attack (TIA), and cerebral infarction without residual deficits; Z95.5 Presence of coronary angioplasty implant and graft; Z88.2 Allergy status to sulfonamides; Z88.6 Allergy status to analgesic agent; Z88.8 Allergy status to other drugs, medicaments and biological substances

== ENCOUNTER 2018-05-05 07:14 | Observation (INO) | payer MEDICARE, OTHER ==
[~2018-05-05] VITALS: Ht 147.3 cm; Wt 72.6 kg
[2018-05-05] VITALS (10 sets, daily range): BP systolic 132–174; BP diastolic 45–76
--- NOTE | ~2018-05-05 | H ---
[address] [address] HISTORY AND PHYSICAL Name: SOFÍAJENI Yessica Room: [address] Jenifer Camargo#: [id number] Admission: 05/05/18 Attend Phys: Elias Rivas MD, Discharge: 05/06/18 Date of : 35 Report #: [id number] THIS REPORT FOR: //name// Please refer to the History and Physical performed in the physician's office. By: [facility]4Medical Records Staff ZAINAB /SCOT
[2018-05-05] MEDS ORDERED: BRIMONIDINE 0.110 ML OPHTHALMIC (08:10)
[2018-05-05] MEDS ORDERED: LOPRESSOR25 PO (08:11)
[2018-05-05] MEDS ORDERED: IMDUR 30 MG TAB30 M1 PO (08:11)
[2018-05-05] MEDS ORDERED: HYDROCHLOROTHIA25 M2 PO (08:11)
[2018-05-05] MEDS ORDERED: BRILINTA90 MG PO (08:12)
[2018-05-05 08:15] LABS: HEMATOCRIT 29.2 % (37.0-47.0); HEMOGLOBIN 9.2 gm/dL (12.0-15.0); MCHC 31.4 g/dL (28.0-37.0); MCV 79.6 fL (80.0-100.0); MPV 7.5 fl. (7.2-11.1); RBC 3.67 mil/uL (4.20-5.00); RDW-CV 19.2 % (10.5-14.5); WBC 7.9 thou/uL (4.0-11.0)
[2018-05-05 08:24] LABS: ANION GAP 10 mmol/L (7-16); BUN 33 mg/dL (7-18); CALCIUM 8.5 mg/dL (8.5-10.1); CHLORIDE 104 mmol/L (98-107); CO2 26 mmol/L (21-32); CREATININE 1.8 mg/dL (0.6-1.3); GLUCOSE 101 mg/dL (70-99); POTASSIUM 4.3 mmol/L (3.5-5.1); SODIUM 140 mmol/L (136-145)
[2018-05-05 08:25] LABS: APTT 22.9 Seconds (25.0-31.3); INR 0.9; PROTIME 9.6 Seconds (9.20-11.50)
[2018-05-05 08:28] LABS: ALBUMIN 3.5 g/dL (3.4-5.0); ALKALINE PHOSPHATASE 136 U/L (46-116); CHOLESTEROL 180 mg/dL (<200); HDL CHOLESTEROL 63 mg/dL (>40); LDL CHOLESTEROL 76 mg/dL (<100); SERUM ASSESSMENT Clear; SGOT 15 U/L (15-37); SGPT 16 U/L (30-65); TC:HDL 2.9 Ratio (Not establshd); TOTAL BILIRUBIN 0.3 mg/dL (<0.1-1.0); TRIGLYCERIDE 207 mg/dL (<150); VLDL 41 mg/dL (<40)
--- NOTE | 2018-05-05 15:57 | CARD ---
[address] [address] CARDIAC CATH REPORT Name: JENI GORE Room: [address] Jenifer M.RGonzalo#: [id number] Admission: 05/05/18 Attend Phys: Elias Rivas MD, Discharge: Date of : 35 Report #: [id number] THIS REPORT FOR: //name// APPROVED REPORT Study performed: 05/05/2018 08:32:[address] Rivas Procedures Performed Left heart catheterization selective coronary arteriography and percutaneous coronary intervention to the first diagonal branch the LAD and the mid LAD Indication Unstable angina Risk Factors Hypercholesterolemia, Hypertension Previous Procedures/Diagnoses Previous PCI Admission/Lab Medications/Medications given during procedure Aspirin, Platelet Aff. Inhib., Angiomax bolus and infusion Procedure Narrative The patient was brought electively to the Cardiac Catheterization Laboratory and was prepped and draped in a sterile manner. The right femoral was infiltrated with 2% Lidocaine subcutaneous anesthesia. A 6 Portuguese sheath sheath was inserted into the right femoral artery. Coronary angiography was performed using coronary diagnostic catheters. The right coronary system was accessed and visualized with a Diagnostic catheter. The left coronary system was accessed and visualized with a Diagnostic catheter. Left ventricular/Aortic Valve gradient assessed . Pre-demployment femoral angiogram was performed . Closure device was deployed with a 6 Fr Angioseal. There was no hematoma. Coronary Angiography The patient's coronary anatomy is right dominant. Diagnostic Cath Left Main 0% narrowing [facility] [address] [place] [address] CARDIAC CATH REPORT Name: JENI GORE Room: [address] Jenifer MGonzaloR.#: [id number] Admission: 05/05/18 Attend Phys: Elias Rivas MD, Discharge: Date of : 35 Report #: [id number] LAD Widely patent proximal and mid LAD stents with focal 80% mid LAD in-stent restenosis Circumflex Widely patent proximal circumflex and first marginal with 0% narrowing Right Coronary 90% mid vessel narrowing with total occlusion at the acute margin and ctny-wv-kgtes collaterals filling the distal right coronary artery Left Ventriculography Left Ventriculography was not performed. Hemodynamics The aortic pressure is 130/70 mmHg with a mean of 82 mmHg. The left ventricular end diastolic pressure is 8 mmHg. There was no gradient across the aortic valve upon pullback. PCI Technique Lesion Anticoagulation was achieved with Angiomax. Percutaneous coronary intervention was performed on the mid left anterior descending artery segment. The lesion stenosis prior to intervention was 80% with DAGOBERTO 3 flow. STENT DEPLOYMENT A drug-eluting stent 2.5x8 2 was inserted and inflated up to 10-11atm for 10seconds. Final angiography reveals 0 % stenosis with DAGOBERTO 3 flow. PCI Technique Lesion 2 Percutaneous Coronary Intervention was performed on the first diagonal branch of the LAD. The lesion stenosis prior to intervention was 90% with DAGOBERTO 3 flow. Stent Deployment A drug-eluting stent 2.25 x 8 krzysztof was inserted and inflated up to 10atm for 10seconds. Final angiography reveals 0 % stenosis with DAGOBERTO 3 flow. Conclusion #1 significant coronary artery disease characterized by the following: A widely patent proximal and mid LAD stents with 90% tubular narrowing of the proximal portion of the first [place] [address] CARDIAC CATH REPORT Name: JENI GORE Room: [address] Mary Jo#: [id number] Admission: 05/05/18 Attend Phys: Elias Rivas MD, Discharge: Date of : 35 Report #: [id number] 80% focal mid LAD in-stent restenosis B widely patent proximal circumflex and first marginal stents C dominant right coronary artery with 90% mid vessel narrowing and total occlusion of the acute margin with [id number]-sk-[id number] collaterals filling the distal sright coronary artery #2 normal left-sided hemodynamics study #3 successful percutaneous coronary intervention with deployment of drug-eluting stent at site of 80% focal mid LAD in-stent restenosis with 0% residual narrowing #5 successful percutaneous coronary intervention with deployment of drug-eluting stent at the site of 90% proximal first diagonal stenosis with 0% residual and DAGOBERTO-3 flow to the distal vessel Recommendations Cardiac Risk Reduction Program Aggressive Medical Therapy Medications Administered Aspirin (any) Clopidogrel Diagnostic Cath Approved by: Elias Rivas MD Date/Time: 05/05/2018 15:55:36 <ELECTRONICALLY SIGNED> By: Elias Rivas MD, [facility] 05/05/18 1557 1557 1557Josudha Rivas MD, [facility] /INF
--- NOTE | 2018-05-05 16:08 | NUR ---
PATIENT ARRIVED TO ROOM 209 BY BED. GROIN SITE CLEAN/DRY/INTACT. FAMILY PRESENT AT TIME OF ADMISSION. ADMIT DOCUMENTATION COMPLETED. FLUIDS INFUSING AT THIS TIME. COMPLAINS OF A SLIGHT HEADACHE 5/10, TYLENOL GIVEN, WILL CHECK TO SEE HOW IT HELPED IN AN HOUR. EDUCATED ON ROOM AND CALL LIGHT. ALL QUESTIONS ANSWERED. BED IN LOWEST POSITION, CALL LIGHT IN REACH, CITY MAGISTRATE IN PLACE, FALL PREACUTIONS IN PLACE.
--- NOTE | 2018-05-05 16:31 | EKG ---
[place] [address] ELECTROCARDIOGRAM REPORT Name: JENI GORE Room: [address] M.R.#: [id number] Admission: 05/05/18 Attend Phys: Elias Rivas MD, Discharge: Date of : 35 Report #: [id number] THIS REPORT FOR: //name// [facility] Test Date: 2018-05-05 Test Time: 08:16:05 Pat Name: JENI GORE Department: Room: [facility] Gender: F Stenocaptioner: LAMONTE : 1935 Requested By: Elias Rivas Order Number: [id number] Yonis MD: Elias Rivas Measurements Intervals [place] Rate: 71 P: -25 [place]: 199 QRS: -18 QRSD: 77 T: 52 QT: 430 QTc: 468 Interpretive Statements Sinus rhythm Inferior infarct, old Compared to ECG 02/05/2018 12:41:47 Atrial premature complex(es) no longer present T-wave abnormality no longer present Myocardial infarct finding still present Electronically Signed On 05-05-2018 16:31:43 GREEN WARE CASTER by Elias Rivas [email or web address] <ELECTRONICALLY SIGNED> By: Elias Rivas MD, [facility] 05/05/18 1631 5 5 Elias Rivas MD, [facility] /EPI
--- NOTE | 2018-05-05 16:33 | EKG ---
[place] [address] ELECTROCARDIOGRAM REPORT Name: JENI GORE Room: [address] M.R.#: [id number] Admission: 05/05/18 Attend Phys: Elias Rivas MD, Discharge: Date of : 35 Report #: [id number] THIS REPORT FOR: //name// [facility] Test Date: 2018-05-05 Test Time: 11:24:14 Pat Name: JENI GORE Department: Room: [facility] Gender: F Body Specialist: LAMONTE : 1935 Requested By: Elias Rivas Order Number: [id number] Yonis MD: Elias Rivas Measurements Intervals [place] Rate: 68 P: 21 ID: 222 QRS: -16 QRSD: 80 T: 19 QT: 424 QTc: 451 Interpretive Statements Sinus rhythm Prolonged ID interval Inferior infarct, old Compared to ECG 02/05/2018 12:41:47 First degree AV block now present Atrial premature complex(es) no longer present T-wave abnormality no longer present Myocardial infarct finding still present Electronically Signed On 05-05-2018 16:32:54 LOG CHAIN FEEDER by Elias Rivas [email or web address] <ELECTRONICALLY SIGNED> By: Elias Rivas MD, [facility] 05/05/18 1632 1124 1124 Elias Rivas MD, [facility] /EPI
--- NOTE | 2018-05-05 18:40 | NUR ---
PATIENT IS NO LONGER ON BEDREST. RIGHT GROIN SITE IS CLEAN/DRY AND INTACT. FLUIDS INFUSING. PATIENT HAS NO COMPLAINTS AT THIS TIME, LIFE SKILLS TRAINER IN PLACE, FALL PREACUTIONS IN PLACE, CALL LIGHT IN REACH. SOLORZANO CATHETER IN PLACE.
[2018-05-05] MEDS ORDERED: AMBIEN 5 MG TABL5 M1 PO (23:10)
[2018-05-06 04:01] VITALS: BP 186/68
[2018-05-06 05:12] LABS: HEMATOCRIT 27.5 % (37.0-47.0); HEMOGLOBIN 8.7 gm/dL (12.0-15.0); MCH 24.7 pg (26.0-34.0); MCHC 31.5 g/dL (28.0-37.0); MCV 78.5 fL (80.0-100.0); MPV 7.5 fl. (7.2-11.1); RBC 3.5 mil/uL (4.20-5.00); RDW-CV 18.8 % (10.5-14.5); WBC 6.7 thou/uL (4.0-11.0)
[2018-05-06 05:31] LABS: ALBUMIN 2.9 g/dL (3.4-5.0); CALCIUM 8.4 mg/dL (8.5-10.1); CREATININE 1.5 mg/dL (0.6-1.3); POTASSIUM 4.3 mmol/L (3.5-5.1); TOTAL BILIRUBIN 0.3 mg/dL (<0.1-1.0); TOTAL PROTEIN 6.1 g/dL (6.4-8.2)
--- NOTE | 2018-05-06 05:33 | NUR ---
ASSUMED PT CARE AT 1930. NURSING ASSESSMENT COMPLETED. PT TRACING SINUS RHYTHM THIS SHIFT. DENIES PAIN, VSS, IV FLUIDS INFUSING. DRESSING TO RIGHT GROIN CLEAN, DRY, INTACT. PT PROGRESSING TOWARDS GOALS.HOURLY ROUNDING COMPLETED. CALL LIGHT WITHIN REACH.
[2018-05-06 05:35] LABS: TROPONIN-I LEVEL 1.63 ng/mL (<0.06)
[2018-05-06 07:30] VITALS: BP 150/54
[2018-05-06 08:00] VITALS: BP 186/60
[2018-05-06 10:44] VITALS: BP 150/54
--- NOTE | 2018-05-06 17:00 | EKG ---
[place] [address] ELECTROCARDIOGRAM REPORT Name: JENI GORE Room: [address] M.R.#: [id number] Admission: 05/05/18 Attend Phys: Elias Rivas MD, Discharge: 05/06/18 Date of : 35 Report #: [id number] THIS REPORT FOR: //name// [facility] Test Date: 2018-05-06 Test Time: 03:25:03 Pat Name: JENI GORE Department: Room: [facility] Gender: F Spinal Surgeon: SHIRLEY : 1935 Requested By: Elias Rivas Order Number: [id number] Reading MD: Oleg Cardona Measurements Intervals [place] Rate: 76 P: 51 [place]: 190 QRS: -10 QRSD: 84 T: 63 QT: 405 QTc: 456 Interpretive Statements Sinus rhythm Low voltage, precordial leads Minimal ST depression, lateral leads Compared to ECG 05/05/2018 11:24:14 Low QRS voltage now present ST (T wave) deviation now present First degree AV block no longer present Myocardial infarct finding no longer present Electronically Signed On 05-06-2018 17:00:22 CREW DIRECTOR by Oleg Cardona [email or web address] <ELECTRONICALLY SIGNED> By: Oleg Cardona MD, [facility] 05/06/18 1700 0325 0325 Oleg Cardona MD, [facility] /EPI
--- NOTE | 2018-05-06 20:25 | NUR ---
ASSUMED PT CARE AT 0700, PT IN BED, CALL LIGHT IN REACH, STEEPING PRESS OPERATOR TRACING SINUS RHYTHM. NO C/O PAIN/DISTRESS AT THIS TIME. PT PREPARING FOR POSSIBLE DC THIS DAY. A&O X4, UP WITH ASSIST X1. CARDIOLOGY TO CONSULT THIS AM. WILL CONT TO MONITOR.
--- NOTE | 2018-05-06 20:27 | NUR ---
PT DISCHARGED AT 1325. CANDLE MOLDER HAND AND IV REMOVED. SOLORZANO REMOVED, PT VOIDING WITH NO DIFFICULTY. EDUCATED ON DISCHARGE AND MEDICATIONS, STATES UNDERSTANDING. DENIES ANY PAIN AT THIS TIME. PT LEFT VIA WC, ESCORTED BY NURSING STAFF TO FRIENDS VEHICLE.
--- NOTE | 2018-05-08 16:57 | D ---
[address] [address] DISCHARGE SUMMARY Name: JENI GORE Room: [address] Jenifer Camargo#: [id number] Admission: 05/05/18 Attend Phys: Elias Rivas MD, Discharge: 05/06/18 Date of : 35 Report #: [id number] THIS REPORT FOR: //name// CC: Elias Woody DATE OF SERVICE: 05/06/2018 HOSPITAL COURSE: The patient is a very pleasant 82-year-old female with known coronary artery disease, status post prior percutaneous coronary intervention. 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 She has underlying hypertension, hyperlipidemia and chronic renal insufficiency. In this context, I performed recatheterization on 05/06/2018. That study revealed 90% stenosis of the proximal portion of the first diagonal branch of the LAD and 80% focal mid LAD in-stent restenosis. I deployed drug-eluting stents at both sites with a good angiographic result with 0% residual narrowing at both sites following stent deployment. The patient did well post-procedurally and ambulated in the hallways without difficulty with good hemostasis at the right femoral site of catheterization. DISCHARGE MEDICATIONS: She was discharged home on the following medications: Aspirin 81 mg daily, ____ eyedrops, Plavix 75 mg daily with a 300 mg francie-procedural dose, ferrous sulfate 325 mg b.i.d., gabapentin 600 mg t.i.d., hydrochlorothiazide 25 mg daily, Imdur 30 mg daily, L-thyroxine 100 mcg daily, meloxicam 7.5 mg daily, metoprolol 25 mg b.i.d., pantoprazole 20 mg daily, hydrocodone 1 tablet as needed for minor pain, p.r.n. sublingual nitroglycerin and zolpidem 5 mg at bedtime for sleep. She is scheduled to return to see us in the office my nurse practitioner on 05/13/2018 at 10:30, myself on 06/11/2018 at 14:20 to [facility] office. FINAL DISCHARGE DIAGNOSES: 1. Unstable angina. 2. Coronary artery disease. 3. Status post percutaneous coronary intervention to the left anterior descending and first diagonal. 4. Hypertension. 5. Hyperlipidemia. 6. Chronic renal insufficiency with a creatinine of 1.5 at discharge, 1.8 preprocedurally. 7. Anemia, which is chronic. Hemoglobin 8.7 [place] [address] DISCHARGE SUMMARY Name: JENI GORE Room: [address] Jenifer Camargo#: [id number] Admission: 05/05/18 Attend Phys: Elias Rivas MD, Discharge: 05/06/18 Date of : 35 Report #: [id number] Thus, the patient is discharged to home in stable condition on the aforementioned medications with followup as iterated above. <ELECTRONICALLY SIGNED> By: Elias Rivas MD, [facility] 05/08/18 1657 0936 0959John Olinda Rivas MD, FAC /nt
== END 2018-05-06 13:10 | disposition home or self-care (01) ==
LOC: M.CL 07:14 → M.2W 11:11 → M.TBA-CV 11:11 → M.2W 11:11
PROVIDERS: ADMIT Internal Medicine
DX: I25.110 Atherosclerotic heart disease of native coronary artery with unstable angina pectoris (principal); E78.5 Hyperlipidemia, unspecified; I12.9 Hypertensive chronic kidney disease with stage 1 through stage 4 chronic kidney disease, or unspecified chronic kidney disease; N18.9 Chronic kidney disease, unspecified; D64.9 Anemia, unspecified; Z79.899 Other long term (current) drug therapy

== ENCOUNTER 2018-11-17 10:15 | Inpatient (IN) | payer MEDICARE, OTHER ==
[~2018-11-17] VITALS: Ht 147.3 cm; Wt 69.7 kg
[~2018-11-17 10:15] MED LIST changes: +AMBIEN 5 MG TABL5 M1 PO; +BRIMONIDINE 0.110 ML OPHTHALMIC; +LOPRESSOR25 PO
[2018-11-17] MEDS ORDERED: ALLOPURINOL 10100 M1 PO (10:24)
[2018-11-17 10:41] LABS: ABSOLUTE BASOPHILS 0.1 thou/uL (0.0-0.2); ABSOLUTE EOSINOPHILS 0.1 thou/uL (0.0-0.7); ABSOLUTE LYMPHOCYTES 1.2 thou/uL (0.8-5.3); ABSOLUTE MONOCYTES 0.9 thou/uL (0.0-1.2); ABSOLUTE NEUTROPHILS 6.1 thou/uL (1.6-8.1); EOSINOPHILS 0.7 %; HEMATOCRIT 26.9 % (37.0-47.0); HEMOGLOBIN 8.5 gm/dL (12.0-15.0); LYMPHOCYTES 14.2 %; MCH 26.7 pg (26.0-34.0); MCHC 31.5 g/dL (28.0-37.0); MCV 84.9 fL (80.0-100.0); MONOCYTES 10.3 %; NUCLEATED RBCS 0 /100WBC; PLATELET COUNT* 297 thou/uL (150-400); POLYS 73.8 %; RBC 3.17 mil/uL (4.20-5.00); RDW-CV 19.1 % (10.5-14.5); WBC 8.3 thou/uL (4.0-11.0)
[2018-11-17 10:49] LABS: ANION GAP 10 mmol/L (7-16); BUN 32 mg/dL (7-18); CALCIUM 8.8 mg/dL (8.5-10.1); CHLORIDE 104 mmol/L (98-107); CO2 26 mmol/L (21-32); CREATININE 1.4 mg/dL (0.6-1.3); GLUCOSE 119 mg/dL (70-99); POTASSIUM 4.3 mmol/L (3.5-5.1); SODIUM 140 mmol/L (136-145)
[2018-11-17 11:00] LABS: ALBUMIN 3.3 g/dL (3.4-5.0); ALKALINE PHOSPHATASE 139 U/L (46-116); LIPASE 202 U/L (73-393); SGOT 14 U/L (15-37); SGPT 17 U/L (30-65); TOTAL BILIRUBIN 0.2 mg/dL (<0.1-1.0); TOTAL PROTEIN 6.9 g/dL (6.4-8.2); TROPONIN-I LEVEL <0.06 ng/mL (<0.06)
[2018-11-17 11:24] LABS: PROTIME 9.8 Seconds (9.20-11.50)
[2018-11-17 11:59] LABS: URINE BILIRUBIN NEGATIVE (Negative); URINE BLOOD NEGATIVE (Negative); URINE CLARITY CLEAR; URINE COLOR YELLOW; URINE GLUCOSE-RANDOM NEGATIVE (Negative); URINE KETONES NEGATIVE (Negative); URINE LEUKOCYTES-REFLEX 1+ (Negative); URINE NITRITE-REFLEX NEGATIVE (Negative); URINE PROTEIN NEGATIVE (Negative); URINE UROBILINOGEN 0.2 E.U./dl (0.2-1.0)
[2018-11-17 12:11] LABS: SQUAMOUS 0-3 Few /LPF (0-3); URINE RBC 0-2 Rare /HPF (0-2); URINE WBC-REFLEX 0-5 Rare /HPF (0-5)
[2018-11-17 12:12] LABS: BACTERIA-REFLEX 1-9 Few /HPF (None Seen); CASTS None Seen /LPF (None Seen); CRYSTALS None Seen /LPF (None Seen); MUCUS 0-3 Light strn/LPF (None Seen)
[2018-11-17 13:26] VITALS: BP 143/69
[2018-11-17 16:05] VITALS: BP 120/38
--- NOTE | 2018-11-17 16:17 | EKG ---
[place] [address] ELECTROCARDIOGRAM REPORT Name: JENI GORE Room: [address] ADM IN [facility].#: [id number] Admission: 11/17/18 Attend Phys: Cristian Astorga MD Discharge: Date of : 35 Report #: [id number] THIS REPORT FOR: //name// [facility] ED Test Date: 2018-11-17 Test Time: 10:22:23 Pat Name: JENI GORE Department: Room: [facility] Gender: F Philanthropy Officer: : 1935 Requested By: Guillermo Hendricks Order Number: [id number] MD: George Borges Measurements Intervals [place] Rate: 73 P: -17 [place]: 197 QRS: -17 QRSD: 76 T: 15 QT: 548 QTc: 604 Interpretive Statements Sinus rhythm Inferior infarct, old Consider anterior infarct Prolonged QT interval Compared to ECG 05/06/2018 03:25:03 Prolonged QT interval now present Electronically Signed On 11-17-2018 16:17:39 CDT by George Borges [email or web address] <ELECTRONICALLY SIGNED> By: George Borges MD, [facility] 11/17/18 1617 1022 1022 George Borges MD, [facility] /EPI
[2018-11-17 20:00] VITALS: BP 150/41
[2018-11-18] VITALS: BP 149/64
[2018-11-18 04:00] VITALS: BP 152/59
[2018-11-18 05:19] LABS: ABSOLUTE BASOPHILS 0.1 thou/uL (0.0-0.2); ABSOLUTE EOSINOPHILS 0.1 thou/uL (0.0-0.7); ABSOLUTE LYMPHOCYTES 2.1 thou/uL (0.8-5.3); ABSOLUTE MONOCYTES 0.8 thou/uL (0.0-1.2); ABSOLUTE NEUTROPHILS 4.5 thou/uL (1.6-8.1); BASOPHILS 1.1 %; EOSINOPHILS 1.3 %; HEMATOCRIT 28.5 % (37.0-47.0); HEMOGLOBIN 8.9 gm/dL (12.0-15.0); LYMPHOCYTES 27.2 %; MCH 26.4 pg (26.0-34.0); MCV 85.2 fL (80.0-100.0); MPV 7.7 fl. (7.2-11.1); NUCLEATED RBCS 0 /100WBC; PLATELET COUNT* 297 thou/uL (150-400); POLYS 59.4 %; RBC 3.35 mil/uL (4.20-5.00); RDW-CV 19.6 % (10.5-14.5); WBC 7.6 thou/uL (4.0-11.0)
[2018-11-18 05:24] LABS: CALCIUM 9.5 mg/dL (8.5-10.1); CREATININE 1.3 mg/dL (0.6-1.3); POTASSIUM 4.2 mmol/L (3.5-5.1)
[2018-11-18 08:00] VITALS: BP 167/70
[2018-11-18 12:27] VITALS: BP 178/65
--- NOTE | 2018-11-18 15:40 | 2DMMODE ---
[place] [address] 2 D/M-MODE ECHOCARDIOGRAM Name: JENI GORE Room: [address] IN [facility]#: [id number] Admission: 11/17/18 Attend Phys: Cristian Astorga, Discharge: Date of : 35 Date of Service: 11/18/18 1540 Report #: [id number] THIS REPORT FOR: //name// APPROVED REPORT Study performed: 11/18/2018 11:33:00 EXAM: Comprehensive 2D, Doppler, and color-flow Echocardiogram Patient Location: In-Patient Room #: [facility] Status: routine BSA: 1.61 HR: 78 bpm BP: 152/59 mmHg Rhythm: NSR Other Information Study Quality: Good Indications CAD Chest Pain Near syncope 2D Dimensions IVSd: 12.83 (7-11mm) LVOT Diam: 19.68 (18-24mm) LVDd: 36.16 mm PWd: 10.14 (7-11mm) Ascending Ao: 28.77 (22-36mm) LVDs: 25.57 (25-40mm) Aortic Root: 26.19 mm Volumes Left Atrial Volume (Systole) LA ESV Index: 21.10 mL/m2 Aortic Valve AoV Peak Perico.: 1.40 m/s AO Peak Gr.: 7.80 mmHg LVOT Max P.27 mmHg AO Mean Gr.: 4.50 mmHg LVOT Mean P.66 mmHg LVOT Max V: 0.90 m/s AO V2 VTI: 30.50 cm LVOT Mean V: 0.60 m/s NAMAN (VTI): 2.04 cm2 LVOT V1 VTI: 20.42 cm Mitral Valve E/A Ratio: 0.64 [place] [address] 2 D/M-MODE ECHOCARDIOGRAM Name: SOFÍAJENI Yessica Room: [address] IN .R.#: [id number] Admission: 11/17/18 Attend Phys: Cristian Astorga, Discharge: Date of : 35 Date of Service: 11/18/18 1540 Report #: [id number] MV Decel. Time: 273.50 ms MV E Max Perico.: 0.62 m/s MV PHT: 79.31 ms MVA (PHT): 2.77 cm2 TDI E/Lateral E': 8.86 E/Medial E': 8.86 Medial E' Perico.: 0.07 m/s Lateral E' Perico.: 0.07 m/s Pulmonary Valve PV Peak Perico.: 0.98 m/s PV Peak Gr.: 3.85 mmHg Left Ventricle The left ventricle is normal size. There is normal LV segmental wall motion. There is normal left ventricular wall thickness. Left ventricular systolic function is normal. LVEF is 60-65%. Grade I - abnormal relaxation pattern. Right Ventricle The right ventricle is normal size. The right ventricular systolic function is normal. Atria The left atrium size is normal. The right atrium size is normal. Aortic Valve The aortic valve is normal in structure. No aortic regurgitation is present. There is no aortic valvular stenosis. Mitral Valve The mitral valve is normal in structure. Mild mitral regurgitation. No evidence of mitral valve stenosis. Tricuspid Valve The tricuspid valve is normal in structure. There is no tricuspid valve regurgitation noted. Pulmonic Valve The pulmonary valve is normal in structure. There is no pulmonic valvular regurgitation. Great Vessels The aortic root is normal in size. IVC is normal in size and collapses >50% with [place] [address] 2 D/M-MODE ECHOCARDIOGRAM Name: JENI GORE Room: [address] IN [facility]#: [id number] Admission: 11/17/18 Attend Phys: Cristian Astorga, Discharge: Date of : 35 Date of Service: 11/18/18 1540 Report #: [id number] Pericardium There is no pericardial effusion. <Conclusion> The left ventricle is normal size. There is normal left ventricular wall thickness. Left ventricular systolic function is normal. LVEF is 60-65%. There is normal LV segmental wall motion. Grade I - abnormal relaxation pattern. Mild mitral regurgitation. IVC is normal in size and collapses >50% with inspiration. <ELECTRONICALLY SIGNED> By: Oleg Cardona MD, [facility]ACC 11/18/18 1540 1540 1540 Oleg Cardona MD, [facility] /INF
[2018-11-18 16:15] VITALS: BP 156/60
--- NOTE | 2018-11-18 16:23 | CARDNUC ---
[place] [address] CARDIAC NUCLEAR IMAGING REPORT Name: JENI GORE Room: [address] IN [facility]#: [id number] Admission: 11/17/18 Attend Phys: Cristian Astorga, Discharge: Date of : 35 Date of Service: 11/18/18 1623 Report #: [id number] THIS REPORT FOR: //name// APPROVED REPORT Imaging Protocol: Rest Tc-99m/Stress Tc-99m 1 day Study performed: 11/18/2018 09:46:00 Indication: Syncope, Fatigue, Abnormal EKG, Dyspnea, Chest pain Patient Location: In-Patient Stress Tech: Miryam Daly Stress Nurse: Sondra Burt RN Ht: 4 ft 11 in Wt: 153 lbs BSA: 1.65 m2 HR: 88 bpm BP: 132/81 mmHg BMI: 30.89 Rhythm: NSR Medical History Medical History: HTN, Hyperlipidemia Medications: Metoprolol, Isosorbide, Aspirin Allergies: TORADOL. SULFA, LOVASTATIN Cardiac Risk Factors: Hyperlipidemia, HTN, FHX of CAD, SOB Previous Cardiac Procedures: PCI, Myocardial infarction Exercise History: Sedentary Meds Held (24 hrs): Metoprolol Resting Data Rest SPECT myocardial perfusion imaging was performed in supine position 30 minutes following the intravenous injection of 10.7 mCi of Tc-99m Sestamibi. Time of rest injection: 12:05 The images were gated to evaluate regional wall motion and calculate left ventricular ejection fraction. Administration Route: IV Administration Site: Right Pharmacologic Stress Pharmacologic stress test was performed by injecting Regadenoson 0.4 mg IV push over 10-15 seconds immediately followed by the intravenous injection of 32.7 mCi of Tc-99m Sestamibi. Time of stress injection: 13:30 Administration Route: IV Administration Site: [place] [address] CARDIAC NUCLEAR IMAGING REPORT Name: SOFÍAJENI Yessica Room: [address] IN [facility]#: [id number] Admission: 11/17/18 Attend Phys: Cristian Astorga, Discharge: Date of : 35 Date of Service: 11/18/18 1623 Report #: [id number] Heart Rate at time of stress injection: 97 bpm. Gated Stress SPECT was performed 40 minutes after stress injection. The images were gated to evaluate regional wall motion and calculate left ventricular ejection fraction. Prone imaging was performed. Stress Test Details Stress Test: Pharmacologic stress testing performed using 0.4 mg of regadenoson per 5 mL given IV over 10 seconds. Reason for pharmacologic stress test: physical limitation. HR Max Heart Rate (APMHR): 137 bpm Resting HR: 88 bpm Target HR (85% APMHR): 116 bpm Max HR Achieved: 97 bpm % of APMHR: 70 Recovery HR: 88 bpm BP Resting BP: 132/81 mmHg Max BP: 172/72/ mmHg Recovery BP: 164//67 mmHg BP response to stress: Abnormal hypotensive response to stress. ECG Resting ECG: Sinus Rhythm Stress ECG: Sinus Rhythm ST Change: None Arrhythmia: None Recovery ECG: Sinus Rhythm Recovery ST Change: None Recovery Arrhythmia: None Clinical Reason for Termination: Completed protocol Stress Symptoms: Lightheaded, Dyspnea BILATERAL JAWS PAIN The patient had symptoms with Lexiscan infusion were likely due to medication effect in light of normal myocardial perfusion findings. Stress ECG Conclusion The baseline 12-lead EKG shows sinus rhythm without significant ST or T wave abnormality. EKGs during and post Lexiscan infusion show sinus rhythm with no significant ST or T wave changes when compared to baseline. There were no [place] [address] CARDIAC NUCLEAR IMAGING REPORT Name: JENI GORE Room: [address]#: [id number] Admission: 11/17/18 Attend Phys: Cristian Astorga, Discharge: Date of : 35 Date of Service: 11/18/18 1623 Report #: [id number] Study Quality Study: Good Artifact: No artifact Study Data At rest, the left ventricular ejection fraction was 76%.. Post stress, the left ventricular ejection was 84%.. TID = 0.93. Perfusion Perfusion images show no defect to suggest infarct or ischemia. Wall Motion Normal left ventricular wall motion. Nuclear Conclusion ECG Findings: negative for ischemia Clinical Findings: negative for ischemia Nuclear Findings: negative for ischemia Exercise Capacity: not assessed Left Ventricular Function: normal Risk Study: low Myocardial perfusion images show no defect to suggest infarct or ischemia. Left ventricular systolic function appears normal on gated studies. This is a low risk study. <Conclusion> The baseline 12-lead EKG shows sinus rhythm without significant ST or T wave abnormality. EKGs during and post Lexiscan infusion show sinus rhythm with no significant ST or T wave changes when compared to baseline. There were no stress-induced arrhythmias. <ELECTRONICALLY SIGNED> By: Oleg Cardona MD, FACC 11/18/18 1623 162 1623 Oleg Cardona MD, FACC /INF
--- NOTE | 2018-11-18 21:30 | CON ---
[address] [address] CONSULTATION Name: JENI GORE Room: [address] IN .R.#: [id number] Admission: 11/17/18 Attend Phys: Cristian Astorga MD Discharge: Date of : 35 Report #: [id number] THIS REPORT FOR: //name// CC: Cristian Rivas MD [facility] Yoana Woody DO CARDIOLOGY CONSULT INDICATION: Weakness and dyspnea. HISTORY OF PRESENT ILLNESS: The patient is a very pleasant 83-year-old white female with history of coronary artery disease with multiple interventions in the past. Most recent intervention was in 04/2018. At that time, she had intervention to the first diagonal branch in the mid LAD. She had unstable angina at that time. Her typical angina symptoms are pain in the roof of her mouth, her upper jaw, radiating to her neck and shoulders. She denies any typical angina at this time. Per the patient and her daughter, she has been having increasing dyspnea on exertion over the last several weeks. Two days ago while attempting to shop, she was coming out of the grocery store and had profound dizziness and faint feeling. She was assisted by some bystanders who observed her for a while. They then assisted her to her car and followed her home. She was able to make it back home, but states that this type of symptom has been progressing over the last several weeks. She denies delia orthopnea. She is not having PND. Cardiac enzymes thus far are unremarkable. Chest x-ray showed no acute process. She is moderately anemic with a hemoglobin of 8.7. Her MCV is normal. She has had iron deficiency anemia in the past. She denies any change in dietary habits. She has had no fevers, chills or sweats. She is without other cardiac complaint. PAST MEDICAL HISTORY: 1. Coronary artery disease with multiple interventions in the past. The patient reports 15 stents. 2. She has essential hypertension. 3. She has hyperlipidemia. 4. She has mild chronic renal insufficiency. PAST SURGICAL HISTORY: 1. Multiple coronary interventions. 2. Hysterectomy in 2008. 3. Right knee surgery in 2009. FAMILY HISTORY: [place] [address] CONSULTATION Name: JENI GORE Room: [address]#: [id number] Admission: 11/17/18 Attend Phys: Cristian Astorga MD Discharge: Date of : 35 Report #: [id number] SOCIAL HISTORY: The patient is a lifelong nonsmoker. She does not drink alcohol. She lives by herself. She has supportive family in the area. ALLERGIES: LOVASTATIN, SULFA ANTIBIOTICS, TORADOL. HOME MEDICATIONS: Allopurinol 100 mg 2 tablets daily; aspirin 81 mg daily; atorvastatin 20 mg daily; Plavix 75 mg daily; iron sulfate 325 mg daily; furosemide 20 mg daily; gabapentin 300 mg 1 capsule at 05:00 p.m., 2 capsules at bedtime, 1 capsule in a.m.; [place] 5/325 one tablet q.6 hours p.r.n.; Imdur 30 mg daily; Xalatan eyedrops both eyes at night; Synthroid 100 mcg daily; metoprolol tartrate 50 mg b.i.d.; Nitrostat p.r.n.; Protonix 40 mg 2 times daily; potassium chloride 10 mEq daily; Ranexa 500 mg b.i.d.; Ambien 10 mg at bedtime p.r.n. REVIEW OF SYSTEMS: She reports generalized weakness without focal paralysis. She wears glasses without acute visual loss. She has dyspnea on exertion, but no delia chest pain at this time. She has rare palpitations. She had near-syncope without syncope. She denies orthopnea or paroxysmal nocturnal dyspnea. She has some arthritis without connective tissue disease. She has a history of GERD without ongoing heartburn at this time. She denies melena or hematochezia. She has lightheadedness and dizziness as outlined above. She denies depression. Medical allergies as outlined above. Otherwise, 14-point review of systems was unremarkable. PHYSICAL EXAMINATION: VITAL SIGNS: Blood pressure 152/59, pulse 77 and regular. GENERAL: This is a pleasant elderly female who is in no distress. Mood and affect appropriate. HEENT: The patient is wearing glasses. Extraocular muscles intact. Mucous membranes are moist. NECK: Shows no jugular venous distention. There are no carotid bruits. CHEST: Reveals clear lung nicholas. I do not appreciate wheezes, rales or rhonchi. CARDIOVASCULAR: Reveals a regular rhythm with very soft grade 1/6 systolic ejection murmur. ABDOMEN: Reveals normal bowel sounds. The abdomen is soft, nontender. EXTREMITIES: Show no significant edema. Peripheral pulses palpable. SKIN: Dry. LABORATORY DATA: 12-lead EKG shows sinus rhythm with low voltage. There is subtle ST segment depression diffusely. Delayed R-wave progression noted. Chest x-ray shows no acute process. IMPRESSION AND RECOMMENDATIONS: 1. Coronary artery disease with progressive dyspnea, possibly representing [facility] [address] [facility] [place] [address] CONSULTATION Name: JENI GORE Room: [facility] [place] .R.#: [id number] Admission: 11/17/18 Attend Phys: Cristian Astorga MD Discharge: Date of : 35 Report #: [id number] anginal equivalent. I have elected to obtain noninvasive stress testing at this time. Further intervention pending the results of that study. 2. Abnormal EKG with low voltage and poor R-wave progression. Obtaining echocardiogram to evaluate cardiac structure and function and chamber dimensions. 3. Hyperlipidemia. Continue atorvastatin at current dose. 4. Hypertension. We will make adjustments as needed in her antihypertensive regimen. 5. Deconditioning. We will order Physical Therapy consult for strengthening and ambulation. <ELECTRONICALLY SIGNED> By: Oleg Cardona MD, FACC 11/18/18 2130 1019 [id number] Cardona MD, FACC /nt
[2018-11-18 22:45] VITALS: BP 126/52
[2018-11-19] VITALS: BP 120/58
[2018-11-19 04:00] VITALS: BP 106/44
[2018-11-19 04:46] LABS: ABSOLUTE LYMPHOCYTES 1.8 thou/uL (0.8-5.3); HEMOGLOBIN 9.4 gm/dL (12.0-15.0); NUCLEATED RBCS 0 /100WBC
[2018-11-19 04:49] LABS: ABSOLUTE BASOPHILS 0.1 thou/uL (0.0-0.2); ABSOLUTE EOSINOPHILS 0.1 thou/uL (0.0-0.7); ABSOLUTE MONOCYTES 0.9 thou/uL (0.0-1.2); ABSOLUTE NEUTROPHILS 5.2 thou/uL (1.6-8.1); EOSINOPHILS 1.1 %; HEMATOCRIT 29.5 % (37.0-47.0); LYMPHOCYTES 22.8 %; MCH 27.2 pg (26.0-34.0); MCV 84.9 fL (80.0-100.0); MONOCYTES 10.8 %; MPV 7.8 fl. (7.2-11.1); PLATELET COUNT* 325 thou/uL (150-400); POLYS 64.3 %; RBC 3.47 mil/uL (4.20-5.00)
[2018-11-19 05:15] LABS: CALCIUM 9.5 mg/dL (8.5-10.1); CREATININE 1.2 mg/dL (0.6-1.3); POTASSIUM 4.3 mmol/L (3.5-5.1)
[2018-11-19 08:00] VITALS: BP 137/66
[2018-11-19 11:30] VITALS: BP 127/48
[2018-11-19] MEDS ORDERED: NEURONTIN600 MG PO (14:48)
[2018-11-19 15:18] VITALS: BP 127/48
== END 2018-11-19 16:00 | disposition home or self-care (01) | DRG 313 ==
LOC: M.ERS 10:15 → M.2W 11:36 → M.TBA-ER 11:36 → M.2W 13:52
PROVIDERS: Family Medicine; ADMIT Internal Medicine
DX: R07.89 Other chest pain (principal); N18.3 Chronic kidney disease, stage 3 (moderate); D50.9 Iron deficiency anemia, unspecified; M10.9 Gout, unspecified; I12.9 Hypertensive chronic kidney disease with stage 1 through stage 4 chronic kidney disease, or unspecified chronic kidney disease; I25.10 Atherosclerotic heart disease of native coronary artery without angina pectoris; E78.5 Hyperlipidemia, unspecified; H40.9 Unspecified glaucoma; Z96.1 Presence of intraocular lens; R55 Syncope and collapse; Z88.8 Allergy status to other drugs, medicaments and biological substances; Z88.2 Allergy status to sulfonamides; Z86.73 Personal history of transient ischemic attack (TIA), and cerebral infarction without residual deficits; Z95.5 Presence of coronary angioplasty implant and graft; Z90.710 Acquired absence of both cervix and uterus; Z79.899 Other long term (current) drug therapy; Z79.82 Long term (current) use of aspirin; Z79.1 Long term (current) use of non-steroidal anti-inflammatories (NSAID); Z98.49 Cataract extraction status, unspecified eye; Z82.49 Family history of ischemic heart disease and other diseases of the circulatory system; Z83.3 Family history of diabetes mellitus; I25.2 Old myocardial infarction; Z85.42 Personal history of malignant neoplasm of other parts of uterus; Z96.659 Presence of unspecified artificial knee joint; H54.8 Legal blindness, as defined in USA; Z80.9 Family history of malignant neoplasm, unspecified

== ENCOUNTER 2019-01-19 10:18 | Inpatient (IN) | payer MEDICARE, OTHER ==
[~2019-01-19] VITALS: Ht 147.3 cm; Wt 68.5 kg
[~2019-01-19 10:18] MED LIST changes: +ALLOPURINOL 10100 M1 PO
[2019-01-19 10:24] VITALS: BP 148/62
[2019-01-19] MEDS ORDERED: ALLOPURINOL 10100 M1 PO (10:30)
[2019-01-19 10:57] LABS: ANION GAP 13 mmol/L (7-16); BUN 30 mg/dL (7-18); CALCIUM 8.3 mg/dL (8.5-10.1); CHLORIDE 107 mmol/L (98-107); CO2 20 mmol/L (21-32); CREATININE 1.4 mg/dL (0.6-1.3); GLUCOSE 110 mg/dL (70-99); POTASSIUM 4.6 mmol/L (3.5-5.1); SODIUM 140 mmol/L (136-145)
[2019-01-19 11:06] LABS: ALBUMIN 3.4 g/dL (3.4-5.0); ALKALINE PHOSPHATASE 137 U/L (46-116); LIPASE 158 U/L (73-393); SGOT 24 U/L (15-37); SGPT 31 U/L (30-65); TOTAL BILIRUBIN 0.2 mg/dL (<0.1-1.0); TOTAL PROTEIN 6.7 g/dL (6.4-8.2); TROPONIN-I LEVEL <0.06 ng/mL (<0.06)
[2019-01-19 11:45] LABS: ABSOLUTE BASOPHILS 0.1 thou/uL (0.0-0.2); ABSOLUTE EOSINOPHILS 0.1 thou/uL (0.0-0.7); ABSOLUTE LYMPHOCYTES 1.4 thou/uL (0.8-5.3); ABSOLUTE MONOCYTES 0.6 thou/uL (0.0-1.2); ABSOLUTE NEUTROPHILS 5.9 thou/uL (1.6-8.1); BASOPHILS 1.7 %; EOSINOPHILS 1.6 %; HEMATOCRIT 22.3 % (37.0-47.0); LYMPHOCYTES 17.5 %; MCH 24.1 pg (26.0-34.0); MCV 77.9 fL (80.0-100.0); MONOCYTES 7.3 %; MPV 7.4 fl. (7.2-11.1); NUCLEATED RBCS 0 /100WBC; PLATELET COUNT* 283 thou/uL (150-400); POLYS 71.9 %; RBC 2.87 mil/uL (4.20-5.00); RDW-CV 20.2 % (10.5-14.5); WBC 8.2 thou/uL (4.0-11.0)
[2019-01-19 11:48] LABS: HEMOGLOBIN 6.9 gm/dL (12.0-15.0)
[2019-01-19 12:56] LABS: PLATELET ESTIMATE ADEQUATE
[2019-01-19 12:57] LABS: ANISOCYTOSIS 1+; HYPOCHROMASIA 1+; MICROCYTES Occasional
[2019-01-19 20:10] VITALS: BP 177/79
[2019-01-19 21:11] VITALS: BP 157/54
[2019-01-20] VITALS (7 sets, daily range): BP systolic 125–179; BP diastolic 42–87
[2019-01-20 05:14] LABS: ABSOLUTE BASOPHILS 0.1 thou/uL (0.0-0.2); ABSOLUTE EOSINOPHILS 0.1 thou/uL (0.0-0.7); ABSOLUTE LYMPHOCYTES 1.4 thou/uL (0.8-5.3); ABSOLUTE MONOCYTES 0.6 thou/uL (0.0-1.2); EOSINOPHILS 0.9 %; HEMATOCRIT 28.3 % (37.0-47.0); LYMPHOCYTES 15.2 %; MCH 24.3 pg (26.0-34.0); MCHC 31.7 g/dL (28.0-37.0); MCV 76.8 fL (80.0-100.0); MONOCYTES 6.8 %; MPV 7.1 fl. (7.2-11.1); NUCLEATED RBCS 0 /100WBC; PLATELET COUNT* 280 thou/uL (150-400); POLYS 76.1 %; RBC 3.69 mil/uL (4.20-5.00); RDW-CV 19.7 % (10.5-14.5); WBC 9.2 thou/uL (4.0-11.0)
[2019-01-20 05:25] LABS: CALCIUM 8.8 mg/dL (8.5-10.1); CREATININE 1.2 mg/dL (0.6-1.3); POTASSIUM 4.4 mmol/L (3.5-5.1)
--- NOTE | 2019-01-20 14:59 | EKG ---
[place] [address] ELECTROCARDIOGRAM REPORT Name: JENI GORE Room: [address] ADM IN [facility].#: [id number] Admission: 01/19/19 Attend Phys: Cristian Astorga MD Discharge: Date of : 35 Report #: [id number] THIS REPORT FOR: //name// [facility] ED Test Date: 2019-01-19 Test Time: 10:23:36 Pat Name: JENI GORE Department: Room: [facility] Gender: F Collective Bargaining Specialist: EV : 1935 Requested By: Laura Delgado Order Number: [id number] MD: Elias Rivas Measurements Intervals [place] Rate: 64 P: -13 VT: 207 QRS: -2 QRSD: 88 T: 1 QT: 456 QTc: 471 Interpretive Statements Sinus rhythm Low voltage, precordial leads Borderline T abnormalities, inferior leads Compared to ECG 11/17/2018 10:22:23 Low QRS voltage now present T-wave abnormality now present Myocardial infarct finding no longer present Prolonged QT interval no longer present Electronically Signed On 01-20-2019 14:59:09 CDT by Elias Rivas [email or web address] <ELECTRONICALLY SIGNED> By: Elias Rivas MD, [facility] 01/20/19 1459 1023 1023 Elias Rivas MD, FAC /EPI
[2019-01-21 04:00] VITALS: BP 168/49
[2019-01-21 04:18] LABS: ABSOLUTE BASOPHILS 0.1 thou/uL (0.0-0.2); ABSOLUTE EOSINOPHILS 0.1 thou/uL (0.0-0.7); ABSOLUTE LYMPHOCYTES 1.8 thou/uL (0.8-5.3); ABSOLUTE MONOCYTES 0.8 thou/uL (0.0-1.2); ABSOLUTE NEUTROPHILS 3.9 thou/uL (1.6-8.1); BASOPHILS 0.9 %; EOSINOPHILS 1.2 %; HEMATOCRIT 29.8 % (37.0-47.0); HEMOGLOBIN 9.3 gm/dL (12.0-15.0); LYMPHOCYTES 27.3 %; MCH 24.1 pg (26.0-34.0); MCHC 31.3 g/dL (28.0-37.0); MCV 76.9 fL (80.0-100.0); MONOCYTES 12.3 %; NUCLEATED RBCS 0 /100WBC; PLATELET COUNT* 307 thou/uL (150-400); POLYS 58.3 %; RBC 3.87 mil/uL (4.20-5.00); RDW-CV 19.9 % (10.5-14.5); WBC 6.7 thou/uL (4.0-11.0)
[2019-01-21 04:55] LABS: CALCIUM 9.3 mg/dL (8.5-10.1); CREATININE 1.2 mg/dL (0.6-1.3); POTASSIUM 4.1 mmol/L (3.5-5.1)
[2019-01-21 07:29] VITALS: BP 168/49
[2019-01-21 08:00] VITALS: BP 145/85
[2019-01-21 15:58] VITALS: BP 167/44
[2019-01-21 20:00] VITALS: BP 117/59
[2019-01-22] VITALS: BP 124/51
[2019-01-22 04:00] VITALS: BP 118/47
[2019-01-22 07:29] VITALS: BP 136/54
[2019-01-22 08:00] VITALS: BP 136/54
--- NOTE | 2019-01-22 15:07 | PATH ---
[facility] [address] [place] [address] PATHOLOGY RPT PROCEDURE Name: JENI GORE Room: [address] IN M.R.#: [id number] Admission: 01/19/19 Date of : 35 Discharge: Report #: [id number] Path Case #: [id number] [facility] Accession Number: [id number] . 01 Material submitted: . PART A: small bowel - SMALL BOWEL BIOPSY PART B: stomach - ANTRAL BIOPSY . 01 Clinical history: . None provided . 02 Diagnosis: A. Small bowel biopsy: - Normal small intestinal/duodenal mucosa. . B. Antral biopsy: - Mild nonspecific chronic antral gastritis, negative for Helicobacter pylori organisms and dysplasia. . (MEHRAN:abril; 01/22/2019) . Special stain on B: H. pylori immuno MBR 01/22/2019 1125 Local . 02 Electronically signed: . Juan Mendoza MD, Pathologist NPI- [id number] . 01 Gross description: . A. Received in formalin labeled "Jeni Gore, small bowel biopsy," are 3 segments of thompson soft tissue measuring 1.0 x 0.7 x 0.4 cm in aggregate dimensions and ranging from 0.3 to 0.5 cm in maximum dimension. The specimen is submitted entirely in cassette A1. . B. Received in formalin labeled "Jeni Gore, antral biopsy," is a single segment of thompson soft tissue measuring 0.6 cm in maximum dimension. The specimen is entirely submitted in cassette B1. (TSD; 01/21/2019) TOB/TOB 01/21/2019 2307 Local . 02 Pathologist provided ICD-10: K29.50 . 02 CPT . 607173, 142034, U70447 Specimen Comment: A courtesy copy of this report has been sent to Specimen Comment: [phone], , . Specimen Comment: Report sent to ,DR SELF / [place] [address] PATHOLOGY RPT PROCEDURE Name: JENI GORE Room: [address] IN ..#: [id number] Admission: 01/19/19 Date of : 35 Discharge: Report #: [id number] Path Case #: [id number] Performed at: [address], [place], [place] [id number] MD Wade Hairston MD Phone: [phone] Performed at: 02 [facility] [place] [facility] Myla Greco, [place] [id number] MD Juan Mendoza MD Phone: [phone]
[2019-01-22] MEDS ORDERED: IRON325 PO (15:31)
[2019-01-22] MEDS ORDERED: PROTONIX40 M1 PO ×2 (15:31→15:42)
== END 2019-01-22 17:57 | disposition home or self-care (01) | DRG 381 ==
LOC: M.ERS 10:18 → M.2W 13:14 → M.TBA-ER 13:14 → M.2W 20:33
PROVIDERS: Nurse Practitioner Family; ADMIT Internal Medicine
DX: K22.11 Ulcer of esophagus with bleeding (principal); I50.32 Chronic diastolic (congestive) heart failure; I13.0 Hypertensive heart and chronic kidney disease with heart failure and stage 1 through stage 4 chronic kidney disease, or unspecified chronic kidney disease; K21.9 Gastro-esophageal reflux disease without esophagitis; M10.9 Gout, unspecified; H54.8 Legal blindness, as defined in USA; I25.10 Atherosclerotic heart disease of native coronary artery without angina pectoris; N18.9 Chronic kidney disease, unspecified; E78.5 Hyperlipidemia, unspecified; K44.9 Diaphragmatic hernia without obstruction or gangrene; D50.9 Iron deficiency anemia, unspecified; K22.5 Diverticulum of esophagus, acquired; K21.0 Gastro-esophageal reflux disease with esophagitis; Z90.710 Acquired absence of both cervix and uterus; Z85.42 Personal history of malignant neoplasm of other parts of uterus; Z95.5 Presence of coronary angioplasty implant and graft; Z88.2 Allergy status to sulfonamides; Z88.8 Allergy status to other drugs, medicaments and biological substances; Z79.82 Long term (current) use of aspirin; Z79.899 Other long term (current) drug therapy; Z83.3 Family history of diabetes mellitus; Z82.49 Family history of ischemic heart disease and other diseases of the circulatory system

== ENCOUNTER → 2019-05-12 | Outpatient (CLI) | payer MEDICARE, OTHER ==
[~2019-05-12] MED LIST changes: +PROTONIX40 M1 PO
[2019-05-12 11:45] LABS: ABSOLUTE BASOPHILS 0.1 thou/uL (0.0-0.2); ABSOLUTE EOSINOPHILS 0.1 thou/uL (0.0-0.7); ABSOLUTE LYMPHOCYTES 1.6 thou/uL (0.8-5.3); ABSOLUTE MONOCYTES 0.7 thou/uL (0.0-1.2); ABSOLUTE NEUTROPHILS 5.3 thou/uL (1.6-8.1); EOSINOPHILS 1.8 %; HEMATOCRIT 30.3 % (37.0-47.0); HEMOGLOBIN 9.5 gm/dL (12.0-15.0); LYMPHOCYTES 20.6 %; MCH 26.7 pg (26.0-34.0); MCHC 31.4 g/dL (28.0-37.0); MCV 84.9 fL (80.0-100.0); MONOCYTES 8.7 %; NUCLEATED RBCS 0 /100WBC; PLATELET COUNT* 315 thou/uL (150-400); POLYS 67.9 %; RBC 3.57 mil/uL (4.20-5.00); RDW-CV 20.2 % (10.5-14.5); WBC 7.9 thou/uL (4.0-11.0)
[2019-05-12 12:10] LABS: ANISOCYTOSIS 2+; PLATELET ESTIMATE ADEQUATE; TEARDROPS 1+
[2019-05-12 12:55] LABS: ESR (SEDRATE) 23 mm/hr (0-30)
== END ==
LOC: M.LAB 11:22
PROVIDERS: Internal Medicine Gastroenterology
DX: D50.0 Iron deficiency anemia secondary to blood loss (chronic) (principal); K44.9 Diaphragmatic hernia without obstruction or gangrene; K25.7 Chronic gastric ulcer without hemorrhage or perforation

== ENCOUNTER → 2019-05-19 | Outpatient (CLI) | payer MEDICARE, OTHER ==
[2019-05-19 11:41] LABS: CREATININE 1.2 mg/dL (0.6-1.3)
[2019-05-19 13:45] LABS: % SATURATION 5 % (20-39); IRON 21 ug/dL (50-175)
[2019-05-19 15:05] LABS: % SATURATION 36 % (20-39); IRON 148 ug/dL (50-175)
[2019-05-19 16:18] LABS: % SATURATION 77 % (20-39); IRON 342 ug/dL (50-175)
== END ==
LOC: M.LAB 11:14 → M.CT 13:30
PROVIDERS: Internal Medicine Gastroenterology
DX: K44.9 Diaphragmatic hernia without obstruction or gangrene (principal); J98.11 Atelectasis; D50.9 Iron deficiency anemia, unspecified; I25.10 Atherosclerotic heart disease of native coronary artery without angina pectoris; N26.1 Atrophy of kidney (terminal); Z90.710 Acquired absence of both cervix and uterus

== ENCOUNTER → 2019-06-17 | Outpatient (CLI) | payer MEDICARE, OTHER ==
--- NOTE | 2019-06-17 12:35 | 2DMMODE ---
[place] [address] 2 D/M-MODE ECHOCARDIOGRAM Name: JENI GORE Room: [facility]#: [id number] Admission: 06/17/19 Attend Phys: Richardson Chavez Discharge: Date of : 35 Date of Service: 06/17/19 1234 Report #: [id number] THIS REPORT FOR: cc: Yoana Woody Maggie M. DO Holkins, John M. MD [facility] ~ APPROVED REPORT Study performed: 06/17/2019 10:57:09 EXAM: Comprehensive 2D, Doppler, and color-flow Echocardiogram Patient Location: Out-Patient BSA: 1.60 HR: 64 bpm BP: 150/60 mmHg Other Information Study Quality: Good Indications CAD Hypertension/HDD 2D Dimensions IVSd: 10.65 (7-11mm) LVOT Diam: 19.74 (18-24mm) LVDd: 39.10 mm PWd: 11.15 (7-11mm) Ascending Ao: 23.83 (22-36mm) LVDs: 29.16 (25-40mm) Aortic Root: 21.50 mm Volumes Left Atrial Volume (Systole) LA ESV Index: 13.80 mL/m2 Aortic Valve AoV Peak Perico.: 1.25 m/s AO Peak Gr.: 6.22 mmHg LVOT Max P.07 mmHg AO Mean Gr.: 3.26 mmHg LVOT Mean P.51 mmHg LVOT Max V: 0.88 m/s AO V2 VTI: 32.11 cm LVOT Mean V: 0.57 m/s NAMAN (VTI): 2.11 cm2 LVOT V1 VTI: 22.15 [place] [address] 2 D/M-MODE ECHOCARDIOGRAM Name: SOFÍAJENI Yessica Room: [facility]#: [id number] Admission: 06/17/19 Attend Phys: Richardson Chavez Discharge: Date of : 35 Date of Service: 06/17/19 1234 Report #: [id number] E/A Ratio: 0.73 MV Decel. Time: 169.90 ms MV E Max Perico.: 0.61 m/s MV PHT: 49.27 ms MVA (PHT): 4.47 cm2 TDI E/Lateral E': 8.71 E/Medial E': 8.71 Medial E' Percio.: 0.07 m/s Lateral E' Perico.: 0.07 m/s Pulmonary Valve PV Peak Perico.: 0.76 m/s PV Peak Gr.: 2.33 mmHg Left Ventricle The left ventricle is normal size. There is normal LV segmental wall motion. There is normal left ventricular wall thickness. Left ventricular systolic function is normal. The left ventricular ejection fraction is within the normal range. LVEF is 55-60%. Grade I - abnormal relaxation pattern. Right Ventricle The right ventricle is normal size. The right ventricular systolic function is normal. Atria Left atrium is mildly dilated. The right atrium size is normal. Aortic Valve Mild aortic valve sclerosis. No aortic regurgitation is present. There is no aortic valvular stenosis. Mitral Valve The mitral valve is normal in structure. Mild mitral regurgitation. No evidence of mitral valve stenosis. Tricuspid Valve The tricuspid valve is normal in structure. There is no tricuspid valve regurgitation noted. Pulmonic Valve The pulmonary valve is normal in structure. Mild pulmonic [place] [address] 2 D/M-MODE ECHOCARDIOGRAM Name: JENI GORE Room: [facility] JOSH Cam[place]#: [id number] Admission: 06/17/19 Attend Phys: Richardson Chavez Discharge: Date of : 35 Date of Service: 06/17/19 1234 Report #: [id number] The aortic root is normal in size. IVC is normal in size and collapses >50% with inspiration. Pericardium There is no pericardial effusion. <Conclusion> The left ventricle is normal size. There is normal left ventricular wall thickness. Left ventricular systolic function is normal. The left ventricular ejection fraction is within the normal range. LVEF is 55-60%. Grade I - abnormal relaxation pattern. The right ventricle is normal size. Left atrium is mildly dilated. The right atrium size is normal. Mild aortic valve sclerosis. No aortic regurgitation is present. There is no aortic valvular stenosis. The mitral valve is normal in structure. Mild mitral regurgitation. The tricuspid valve is normal in structure. IVC is normal in size and collapses >50% with inspiration. There is no pericardial effusion. There is normal LV segmental wall motion. <ELECTRONICALLY SIGNED> By: Elias Rivas MD, FACC 06/17/19 1234 1234 1234 Elias Rivas MD, FACC /INF
== END ==
LOC: M.CRD 10:56
DX: I08.0 Rheumatic disorders of both mitral and aortic valves (principal); I11.9 Hypertensive heart disease without heart failure; I25.118 Atherosclerotic heart disease of native coronary artery with other forms of angina pectoris

== ENCOUNTER 2019-11-18 09:03 | Observation (INO) | payer MEDICARE, OTHER ==
[~2019-11-18] VITALS: Ht 147.3 cm; Wt 66.7 kg
--- NOTE | ~2019-11-18 | PROC ---
[facility] [address] [place] [address] PROCEDURE REPORT Name: JENI GORE Room: [address] Jenifer Camargo#: [id number] Admission: 11/18/19 Attend Phys: Jeff Patterson Discharge: 11/20/19 Date of : 35 Report #: [id number] THIS REPORT FOR: //name// cc: Yoana Woody Maggie M. DO ~ THIS REPORT FOR: //name// For GI report, please see the Provation report in Perceptive 7 content. By: 1053Medical Records Staff ZAINAB /SCOT
[~2019-11-18 09:03] MED LIST changes: -LOPRESSOR25 PO; +LOPRESSOR50 PO
[2019-11-18 09:07] VITALS: BP 178/72
[2019-11-18] MEDS ORDERED: KLOR-CON 10 ER10 MEQ PO (09:21)
[2019-11-18] MEDS ORDERED: FUROSEMIDE 20 M20 MG PO (09:22)
[2019-11-18] MEDS ORDERED: VYZULTA5 ML OPHTHALMIC (09:24)
[2019-11-18 10:56] LABS: ABSOLUTE BASOPHILS 0.1 thou/uL (0.0-0.2); ABSOLUTE EOSINOPHILS 0.1 thou/uL (0.0-0.7); ABSOLUTE LYMPHOCYTES 1.5 thou/uL (0.8-5.3); ABSOLUTE MONOCYTES 0.8 thou/uL (0.0-1.2); ABSOLUTE NEUTROPHILS 7.9 thou/uL (1.6-8.1); BASOPHILS 0.6 %; EOSINOPHILS 0.5 %; LYMPHOCYTES 14.8 %; MCH 20.3 pg (26.0-34.0); MCHC 29.1 g/dL (28.0-37.0); MCV 69.7 fL (80.0-100.0); MONOCYTES 7.7 %; MPV 7.4 fl. (7.2-11.1); NUCLEATED RBCS 0 /100WBC; PLATELET COUNT* 321 thou/uL (150-400); POLYS 76.4 %; RBC 2.77 mil/uL (4.20-5.00); RDW-CV 20.6 % (10.5-14.5); WBC 10.3 thou/uL (4.0-11.0)
[2019-11-18 11:02] LABS: HEMATOCRIT 19.3 % (37.0-47.0); HEMOGLOBIN 5.6 gm/dL (12.0-15.0)
[2019-11-18 11:07] LABS: CALCIUM 8.2 mg/dL (8.5-10.1); CREATININE 1.8 mg/dL (0.6-1.3); POTASSIUM 4.7 mmol/L (3.5-5.1)
[2019-11-18 11:21] LABS: ALBUMIN 3.3 g/dL (3.4-5.0); CK-MB MASS 0.5 ng/mL (<0.5-3.6); TOTAL BILIRUBIN 0.2 mg/dL (<0.1-1.0); TOTAL PROTEIN 6.8 g/dL (6.4-8.2)
[2019-11-18 11:23] LABS: PROTIME 10.1 Seconds (9.20-11.50)
[2019-11-18 11:45] LABS: POLYCHROMASIA 1+; TARGET CELLS 1+
[2019-11-18 11:46] LABS: ANISOCYTOSIS 1+
[2019-11-18 15:41] LABS: HEMATOCRIT 19.5 % (37.0-47.0); HEMOGLOBIN 5.8 gm/dL (12.0-15.0)
[2019-11-18 15:46] LABS: URINE BILIRUBIN NEGATIVE (Negative); URINE BLOOD NEGATIVE (Negative); URINE CLARITY CLEAR; URINE COLOR YELLOW; URINE GLUCOSE-RANDOM NEGATIVE (Negative); URINE KETONES NEGATIVE (Negative); URINE LEUKOCYTES-REFLEX NEGATIVE (Negative); URINE PROTEIN NEGATIVE (Negative); URINE SPECIFIC GRAVITY 1.025 (1.005-1.030); URINE UROBILINOGEN 0.2 E.U./dl (0.2-1.0)
[2019-11-18 15:55] LABS: URINE NITRITE-REFLEX POSITIVE (Negative)
[2019-11-18 15:56] LABS: CASTS None Seen /LPF (None Seen); CRYSTALS None Seen /LPF (None Seen); SQUAMOUS 0-3 Few /LPF (0-3); URINE RBC 0-2 Rare /HPF (0-2); URINE WBC-REFLEX 0-5 Rare /HPF (0-5)
--- NOTE | 2019-11-18 16:05 | NUR ---
ADMIT FROM ER TO 213 TELEPHONE REPORT GIVEN PRIOR TO ARRIVAL PATIENT TO VIA CART AND 1 ASSIST TO BED DENIES PAIN ORIENTED TO RM AND CALL LIGHT SEE ADMISSION ASMNT AND HX
[2019-11-18 16:12] VITALS: BP 124/65
[2019-11-18 16:15] VITALS: BP 129/40
[2019-11-18 19:45] VITALS: BP 129/60
[2019-11-18 20:12] VITALS: BP 147/97; BP 152/87; BP 160/74; BP 178/68
[2019-11-18 23:27] LABS: HEMATOCRIT 25.5 % (37.0-47.0); HEMOGLOBIN 7.6 gm/dL (12.0-15.0)
[2019-11-19] VITALS (8 sets, daily range): BP systolic 140–190; BP diastolic 54–81
--- NOTE | 2019-11-19 03:59 | NUR ---
ASSUMED CARE OF PT AT 1900. PT IS ALERT AND ORIENTED. VSS. PERRLA. PT HGB WS ONLY 5.8. PT HAS RECIEVED 2 UNITS OF PRBC'S. TEMP WENT UP TO 100.2 BUT NO OTHER COMPLICATIONS. NOTIFIED. PT WAS ALSO HAVING SOME CHEST PRESSURE EARLIER IN THE SHIFT. PT RECIEVED MORPHINE. PT IS ON 2 LITERS O2. PT IS IN SINUS RYTHM ON THE TELEMETRY. PT IS RESTING COMFORTABLY IN BED. RESPIRATIONS ARE EVEN AND NONLABORED. WILL CONTINUE TO MONITOR PT.
[2019-11-19 04:12] LABS: HEMATOCRIT 27.9 % (37.0-47.0); HEMOGLOBIN 8.8 gm/dL (12.0-15.0)
[2019-11-19 04:22] LABS: POTASSIUM 4.6 mmol/L (3.5-5.1)
--- NOTE | 2019-11-19 09:11 | NUR ---
Pt is A&O. Resides at home alone. Active and independent. Pt uses a walker or cane for mobility, primarily is cane level. No hx of HH. Hx of skilled at [facility]. Hx of acute rehab. Supportive kids that are involved in POC. Goal is home at [place], Pt wants HANDY, HH to be arranged through [facility], CM will fax orders once available. [facility] p:[phone] f:[phone]
[2019-11-19 11:20] LABS: % SATURATION 17 % (20-39); IRON 93 ug/dL (50-175)
--- NOTE | 2019-11-19 13:17 | EKG ---
[place] [address] ELECTROCARDIOGRAM REPORT Name: JENI GORE Room: [address] M.R.#: [id number] Admission: 11/18/19 Attend Phys: Ruiz Gilmore Discharge: Date of : 35 Date of Service: 11/18/1908 Report #: [id number] THIS REPORT FOR: //name// [facility] ED Test Date: 2019-11-18 Test Time: 09:08:25 Pat Name: JENI GORE Department: Room: [facility] Gender: F Revenue Stamp Clerk: : 1935 Requested By: Guillermo Hendricks Order Number: [id number] MD: Oleg Cardona Measurements Intervals [place] Rate: 94 P: 34 ID: [id number] QRS: -2 QRSD: 85 T: 106 QT: 294 QTc: 368 Interpretive Statements Sinus rhythm Borderline low voltage, extremity leads Nonspecific repol abnormality, lateral leads Compared to ECG 01/19/2019 10:23:36 Early repolarization now present T-wave abnormality no longer present Electronically Signed On 11-19-2019 13:17:14 CDT by Oleg Cardona [email or web address] <ELECTRONICALLY SIGNED> By: Oleg Cardona MD, FAC 11/19/19 1317 0908 0908 Oleg Cardona MD, [facility] /EPI
--- NOTE | 2019-11-19 13:40 | CON ---
[facility] [address] [place] [address] CONSULTATION Name: JENI GORE Room: [address] M.RGonzalo#: [id number] Admission: 11/18/19 Attend Phys: Jeff Patterson Discharge: Date of : 35 Report #: [id number] THIS REPORT FOR: //name// cc: Yoana Woody Maggie M. DO ~ THIS REPORT FOR: //name// CC: Elias Perez DICTATED BY: Dorothy Barragan [facility] DATE OF SERVICE: 11/19/2019 Please note at the time of this dictation, the patient was seen and physically examined by myself. HISTORY OF PRESENT ILLNESS: This is an 84-year-old female who presented to the Emergency Room with having some chest discomfort. She states she did take some nitroglycerin at home. She has been noticing some dark stools that have been darker than normal when she takes her iron supplementation. She has had no nausea, vomiting or any abdominal pain at this time. The patient did undergo an EGD back in 12/2018 that showed gastritis and had Jhon erosions that were noted. She has been on Protonix b.i.d. and iron since that time. She was seen in April Last hemoglobin at that time was 9.5. Yesterday, when she presented to the Emergency Room, she had a hemoglobin of 5.6. She has received 2 units of blood and she is currently 8.8. She states she is feeling much better and having no difficulties at this time. Unaware of when her last colonoscopy was. She states her bowels move typically every day, but she has noticed off and on that they are a little bit darker than normal for her. ALLERGIES: INCLUDE LOVASTATIN, SULFA AND KETOROLAC. MEDICATIONS FROM HOME: Iron, pantoprazole, gabapentin, allopurinol, hydrocodone, levothyroxine, aspirin, Ambien, Lopressor, potassium, furosemide. PAST MEDICAL HISTORY: Uterine cancer, hypertension, skin infections, shingles, gout, hypertension, glaucoma, she had a stroke, left eye legally blind, large hiatal hernia noted in the past. PAST SURGICAL HISTORY: Hysterectomy, tonsillectomy, cataract surgery, knee surgery replacement, coronary artery stent placement several times. FAMILY HISTORY: [place] [address] CONSULTATION Name: JENI GORE Room: [address] Mary Jo#: [id number] Admission: 11/18/19 Attend Phys: Jeff Patterson Discharge: Date of : 35 Report #: [id number] SOCIAL HISTORY: Denies any alcohol, tobacco or illegal drug use. REVIEW OF SYSTEMS: Twelve-point review of systems is essentially negative except what is mentioned in the HPI. PHYSICAL EXAMINATION: VITAL SIGNS: Temperature 36.7, pulse 87, respirations 18, and blood pressure 159/68. HEART: Regular rate and rhythm. LUNGS: Diminished, but clear. ABDOMEN: Soft, positive bowel sounds in all 4 quadrants with no masses or tenderness noted. LABORATORY DATA: Hemoglobin 8.8 after 2 units of blood, white count 10.2, and platelets 321. BNP is 3152. PT 10.1 and INR is 1. BUN is 22, creatinine 1.8 with a GFR of 27. Chest x-ray normal. IMPRESSION: 1. Acute anemia. 2. Gastroesophageal reflux disease. 3. History of Jhon erosions noted on last esophagogastroduodenoscopy from 12/2018. 4. History of uterine cancer, status post hysterectomy. PLAN: 1. EGD today with Dr. Ham. 2. Further recommendations to be made once the procedure has been performed. 3. We will add iron studies and ferritin to her labs as well. Thank you for allowing us to participate in this patient's care. Please do not hesitate to call with any questions in regard to this consult. <ELECTRONICALLY SIGNED> By: Makayla Ham MD 11/19/19 1340 1034 1058Makayla Ham MD /nt
--- NOTE | 2019-11-19 16:07 | NUR ---
PATIENT NPO THIS AM AWAITING GI CONSULT. PATIENT SEEN BY GI AND PATIENT HAD EGD THIS AFTERNOON. PER AMARIS, CORROSION PREVENTION METAL SPRAYER PATIENT WAS CONFUSED AFTER PROCEDURE. PATIENTS DAUGHTER CALLED AFTER PROCEDURE AND UPDATE GIVEN. PATIENT DID COMPLAIN OF HEADACHE, PRN TYLENOL GIVEN AND PATIENT NOW RESTING IN BED. REG DIET ORDERED. PATIENT TO START BID CARAFATE. 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
[2019-11-20] VITALS (7 sets, daily range): BP systolic 125–159; BP diastolic 60–68
[2019-11-20 05:07] LABS: CALCIUM 8.4 mg/dL (8.5-10.1); CREATININE 1.4 mg/dL (0.6-1.3); POTASSIUM 3.8 mmol/L (3.5-5.1)
--- NOTE | 2019-11-20 05:10 | NUR ---
ASSESSMENTS COMPLETED AT BEDSIDE, PLEASE REFER TO CHARTING FOR DETAILS. MEDICATIONS ADMINISTERED PER MAR. HOURLY ROUNDING COMPLETED FOR SAFETY. FALL PERCAUTIONS IN PLACE, CALL LIGHT WITHING REACH, BED ALARM ON.
[2019-11-20 08:38] LABS: ABSOLUTE EOSINOPHILS 0.1 thou/uL (0.0-0.7); ABSOLUTE LYMPHOCYTES 2.3 thou/uL (0.8-5.3); ABSOLUTE MONOCYTES 1.1 thou/uL (0.0-1.2); ABSOLUTE NEUTROPHILS 6.8 thou/uL (1.6-8.1); BASOPHILS 0.4 %; EOSINOPHILS 0.8 %; HEMATOCRIT 30.5 % (37.0-47.0); HEMOGLOBIN 9.8 gm/dL (12.0-15.0); MCH 23.8 pg (26.0-34.0); MCHC 32.3 g/dL (28.0-37.0); MCV 73.9 fL (80.0-100.0); MONOCYTES 10.4 %; MPV 7.8 fl. (7.2-11.1); NUCLEATED RBCS 1 /100WBC; PLATELET COUNT* 312 thou/uL (150-400); POLYS 66.4 %; RBC 4.12 mil/uL (4.20-5.00); WBC 10.3 thou/uL (4.0-11.0)
[2019-11-20] MEDS ORDERED: CARAFATE 1 GM TA1 G1 PO (09:22)
--- NOTE | 2019-11-20 13:00 | NUR ---
assumed pt care at 0715 report received from nurse pt is aox4. on ra. tracing sr on head of precision targeting. o2 saturation 94% ra. vss. up to chair. has good appetite. right jugular peripheral line is patent. skin is intact. plan to go home with home health today if ok with GI doctor. iv line removed. heart monitor retrieved. discharge instruction given to pt. pt left unit accompanied by this nurse on wheelchair at 1255. o2 saturation 95% at time of discharge. pt belongings were brought along.
--- NOTE | 2019-11-24 13:08 | PATH ---
[place] [address] PATHOLOGY RPT PROCEDURE Name: JENI GORE Room: [address] Jenifer Camargo#: [id number] Admission: 11/18/19 Date of : 35 Discharge: 11/20/19 Report #: [id number] Path Case #: [id number] L[facility] Accession Number: [id number] . 01 Material submitted: . stomach - GASTRIC EROSION BIOPSY . 01 Clinical history: . None provided . 02 Diagnosis: Stomach, "gastric erosion", endoscopic biopsy: - Gastric antral and oxyntic mucosa with features of chronic active gastritis and focal reparative/regenerative change of surface epithelium. - Negative for intestinal metaplasia, dysplasia, and malignancy. - NEGATIVE for Helicobacter pylori. (MAGDALENE:abril; 11/23/2019) ELIO 11/24/2019 1152 Local . 02 Diagnosis provided by: . Renan Ford MD, Pathologist NPI- [id number] . 03 Electronically signed: . Renan Ford MD, Pathologist NPI- [id number] . 01 Gross description: . The specimen is received in formalin, labeled "Jeni Gore, gastric erosion BX" and consists of multiple fragments of thompson tissue measuring 1.0 x 0.7 x 0.3 cm in aggregate which are entirely submitted in A1. (SDY; 11/20/2019) SYU/SYU 11/20/2019 1301 Local . 02 Microscopic: . Immunohistochemical stain results (block A1): . Helicobacter pylori - negative for organisms. . (MLK:abril; 11/23/2019) . 02 Pathologist provided ICD-10: K29.50 . 02 CPT . 395011, R65566 Specimen Comment: A courtesy copy of this report has been sent to [phone], [place] [address] PATHOLOGY RPT PROCEDURE Name: JENI GORE Room: [address] Jenifer Camargo#: [id number] Admission: 11/18/19 Date of : 35 Discharge: 11/20/19 Report #: [id number] Path Case #: [id number] Specimen Comment: [phone], , Specimen Comment: Report sent to ,DR VICENTE,DR SELF / DR TOMPKINS Performed at: 01 [facility] [address] [facility] [address], [place] [id number] MD Wade Hairston MD Phone: [phone] Performed at: 02 [facility] [address] [place] [place], [place] [id number] MD Juan Mendoza MD Phone: [phone] Performed at: 03 [facility] [address] [id number] MD Chris Charles MD Phone: [phone]
== END 2019-11-20 12:55 | disposition home health service (06) ==
LOC: M.ERS 09:03 → M.TBA-ER 13:11 → M.2W 17:00
PROVIDERS: Family Medicine; Nurse Practitioner Adult Health; ADMIT Internal Medicine; ATTEND Internal Medicine
DX: Z03.818 Encounter for observation for suspected exposure to other biological agents ruled out (principal); D64.9 Anemia, unspecified; R07.89 Other chest pain

== ENCOUNTER 2020-01-18 11:43 | Inpatient (IN) | payer MEDICARE, OTHER ==
[~2020-01-18] VITALS: Ht 160 cm; Wt 68.0 kg
[~2020-01-18 11:43] MED LIST changes: -ASPIR 8181 M1 PO; +CARAFATE 1 GM TA1 G1 PO; +CHILDREN'S ASPI81 M1 PO; +FUROSEMIDE 20 M20 MG PO; +KLOR-CON 10 ER10 MEQ PO; +VYZULTA5 ML OPHTHALMIC
[2020-01-18 12:03] VITALS: BP 123/76
[2020-01-18 12:26] LABS: HEMATOCRIT 37.3 % (37.0-47.0); HEMOGLOBIN 12.1 gm/dL (12.0-15.0); MCH 28.1 pg (26.0-34.0); MCHC 32.3 g/dL (28.0-37.0); MCV 86.8 fL (80.0-100.0); MPV 7.3 fl. (7.2-11.1); NUCLEATED RBCS 0 /100WBC; PLATELET COUNT* 261 thou/uL (150-400); RDW-CV 25.7 % (10.5-14.5); WBC 9.8 thou/uL (4.0-11.0)
[2020-01-18 12:30] LABS: CALCIUM 8.8 mg/dL (8.5-10.1); CREATININE 1.7 mg/dL (0.6-1.3)
[2020-01-18 12:33] LABS: APTT 22.8 Seconds (25.0-31.3)
[2020-01-18 12:34] LABS: ALBUMIN 3.7 g/dL (3.4-5.0); TOTAL BILIRUBIN 0.3 mg/dL (<0.1-1.0); TOTAL PROTEIN 7.5 g/dL (6.4-8.2)
[2020-01-18 13:01] LABS: ABSOLUTE EOSINOPHILS 0.1 thou/uL (0.0-0.7); ABSOLUTE LYMPHOCYTES 2.4 thou/uL (0.8-5.3); ABSOLUTE MONOCYTES 0.2 thou/uL (0.0-1.2); ABSOLUTE NEUTROPHILS 7.2 thou/uL (1.6-8.1); ANISOCYTOSIS 2+; METAMYELOCYTES 1 %; PLATELET ESTIMATE ADEQUATE
[2020-01-18 14:52] LABS: CHOLESTEROL 213 mg/dL (<200); HDL CHOLESTEROL 64 mg/dL (>40); LDL CHOLESTEROL 114 mg/dL (<100); TC:HDL 3.3 Ratio (Not establshd); TRIGLYCERIDE 179 mg/dL (<150); VLDL 36 mg/dL (<40)
[2020-01-18 14:55] LABS: SERUM ASSESSMENT Clear
--- NOTE | 2020-01-18 15:07 | EKG ---
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: JAYRO : 1935 Requested By: Reno Villanueva Order Number: [id number] MD: Elias Rivas Measurements Intervals [place] Rate: 58 P: -6 NC: 214 QRS: -22 QRSD: 86 T: 10 QT: 467 QTc: 459 Interpretive Statements Sinus rhythm Borderline prolonged NC interval Inferior infarct, old Compared to ECG 11/18/2019 09:08:25 Myocardial infarct finding now present Early repolarization no longer present Electronically Signed On 01-18-2020 15:06:57 CDT by Elias Rivas [email or web address] <ELECTRONICALLY SIGNED> By: Elias Rivas MD, [facility] 01/18/20 1506 1232 1232 Elias Rivas MD, [facility] /EPI
[2020-01-18 16:06] LABS: URINE BILIRUBIN NEGATIVE (Negative); URINE BLOOD NEGATIVE (Negative); URINE CLARITY CLEAR; URINE COLOR YELLOW; URINE GLUCOSE-RANDOM NEGATIVE (Negative); URINE KETONES NEGATIVE (Negative); URINE LEUKOCYTES-REFLEX NEGATIVE (Negative); URINE NITRITE-REFLEX NEGATIVE (Negative); URINE PROTEIN NEGATIVE (Negative); URINE SPECIFIC GRAVITY 1.025 (1.005-1.030); URINE UROBILINOGEN 0.2 E.U./dl (0.2-1.0)
[2020-01-18 18:35] VITALS: BP 107/51
[2020-01-18 21:35] VITALS: BP 137/59
[2020-01-18 21:45] VITALS: BP 130/63
[2020-01-18 21:50] VITALS: BP 114/47
[2020-01-19] VITALS (7 sets, daily range): BP systolic 116–143; BP diastolic 39–100
[2020-01-19 09:03] LABS: CALCIUM 8.6 mg/dL (8.5-10.1); CREATININE 1.7 mg/dL (0.6-1.3); MAGNESIUM 1.9 mg/dL (1.8-2.4); POTASSIUM 3.8 mmol/L (3.5-5.1)
--- NOTE | 2020-01-19 15:15 | 2DMMODE ---
[place] [address] 2 D/M-MODE ECHOCARDIOGRAM Name: JENI GORE Room: [address] IN [facility]#: [id number] Admission: 01/18/20 Attend Phys: Easton Cain, Discharge: Date of : 35 Date of Service: 01/19/20 1514 Report #: [id number] THIS REPORT FOR: cc: Yoana Woody Maggie M. DO Liston, Michael J. MD [facility] ~ APPROVED REPORT Study performed: 01/19/2020 10:43:28 EXAM: Comprehensive 2D, Doppler, and color-flow Echocardiogram Patient Location: In-Patient Room #: [facility] [place] [facility] [place] Status: routine BSA: 1.76 HR: 68 bpm BP: 126/43 mmHg Rhythm: NSR Other Information Study Quality: Good Indications CVA/TIA Echo Enhancing Agent Indication: Rule out Shunt Agent(s) / Amount(s) Used: Agitated Saline 10 cc 2D Dimensions IVSd: 12.31 (7-11mm) LVOT Diam: 18.59 (18-24mm) LVDd: 38.12 mm PWd: 8.14 (7-11mm) Ascending Ao: 26.28 (22-36mm) LVDs: 22.14 (25-40mm) Aortic Root: 24.51 mm Volumes Left Atrial Volume (Systole) LA ESV Index: 16.00 mL/m2 Aortic Valve AoV Peak Perico.: 1.24 m/s AO Peak Gr.: 6.19 mmHg LVOT Max P.82 mmHg AO Mean Gr.: 3.37 mmHg LVOT Mean [place]94 [place] [address] 2 D/M-MODE ECHOCARDIOGRAM Name: JENI GORE Yessica Room: [address] IN .R.#: [id number] Admission: 01/18/20 Attend Phys: Easton Cain, Discharge: Date of : 35 Date of Service: 01/19/20 1514 Report #: [id number] LVOT Max V: 0.68 m/s AO V2 VTI: 25.06 cm LVOT Mean V: 0.45 m/s NAMAN (VTI): 1.53 cm2 LVOT V1 VTI: 14.11 cm Mitral Valve E/A Ratio: 0.84 MV Decel. Time: 221.70 ms MV E Max Perico.: 0.75 m/s MV PHT: 64.29 ms MVA (PHT): 3.42 cm2 TDI E/Lateral E': 18.75 E/Medial E': 15.00 Medial E' Perico.: 0.05 m/s Lateral E' Perico.: 0.04 m/s Pulmonary Valve PV Peak Perico.: 0.87 m/s PV Peak Gr.: 3.05 mmHg Tricuspid Valve RAP Estimate: 5.00 mmHg TR Peak Gr.: 23.19 mmHg RVSP: 28.00 mmHg PA Pressure: 28.00 mmHg Left Ventricle The left ventricle is normal size. There is normal LV segmental wall motion. Mild to moderate concentric left ventricular hypertrophy. Left ventricular systolic function is normal. LVEF is 60-65%. Grade I - abnormal relaxation pattern. Right Ventricle The right ventricle is normal size. The right ventricular systolic function is normal. Atria The left atrium size is normal. The interatrial septum is intact with no evidence for an atrial septal defect. The right atrium size is normal. Aortic Valve The aortic valve is normal in structure. No aortic regurgitation is present. There is no aortic valvular stenosis. Mitral Valve The mitral valve is normal in structure. Trace mitral regurgitation. No evidence [place] [address] 2 D/M-MODE ECHOCARDIOGRAM Name: JENI GORE Room: [address] IN [facility]#: [id number] Admission: 01/18/20 Attend Phys: Easton Cain, Discharge: Date of : 35 Date of Service: 01/19/20 1514 Report #: [id number] Tricuspid Valve The tricuspid valve is normal in structure. Trace tricuspid regurgitation. No pulmonary hypertension. Pulmonic Valve The pulmonary valve is normal in structure. There is no pulmonic valvular regurgitation. Great Vessels The aortic root is normal in size. IVC is normal in size and collapses >50% with inspiration. Pericardium There is no pericardial effusion. <Conclusion> The left ventricle is normal size. Mild to moderate concentric left ventricular hypertrophy. Left ventricular systolic function is normal. LVEF is 60-65%. Grade I - abnormal relaxation pattern. The interatrial septum is intact with no evidence for an atrial septal defect. Trace mitral regurgitation. Trace tricuspid regurgitation. No pulmonary hypertension. IVC is normal in size and collapses >50% with inspiration. <ELECTRONICALLY SIGNED> By: Oleg Cardona MD, FACC 01/19/20 1514 13 151 Oleg Cardona MD, FACC /INF
[2020-01-20 04:00] VITALS: BP 138/75
[2020-01-20 08:00] VITALS: BP 128/103
[2020-01-20] MEDS ORDERED: LEVOTHYROXINE125 MCG PO (08:31)
[2020-01-20 12:00] VITALS: BP 119/55
[2020-01-20 14:39] VITALS: BP 119/55
== END 2020-01-20 15:00 | disposition home or self-care (01) | DRG 312 ==
LOC: M.ERS 11:43 → M.TBA-ER 13:20 → M.2W 14:45 → M.TBA-ER 14:45 → M.2W 22:21
PROVIDERS: Emergency Medicine Emergency Medical Services; Registered Nurse; ADMIT Internal Medicine; ATTEND Internal Medicine
DX: I95.1 Orthostatic hypotension (principal); Z96.659 Presence of unspecified artificial knee joint; M10.9 Gout, unspecified; H40.9 Unspecified glaucoma; H54.8 Legal blindness, as defined in USA; I25.10 Atherosclerotic heart disease of native coronary artery without angina pectoris; I12.9 Hypertensive chronic kidney disease with stage 1 through stage 4 chronic kidney disease, or unspecified chronic kidney disease; N18.3 Chronic kidney disease, stage 3 (moderate); I34.0 Nonrheumatic mitral (valve) insufficiency; R74.0 Nonspecific elevation of levels of transaminase and lactic acid dehydrogenase [LDH]; Z20.828 Contact with and (suspected) exposure to other viral communicable diseases; M54.9 Dorsalgia, unspecified; Z90.89 Acquired absence of other organs; Z90.710 Acquired absence of both cervix and uterus; Z79.82 Long term (current) use of aspirin; Z79.899 Other long term (current) drug therapy; Z95.5 Presence of coronary angioplasty implant and graft; Z86.73 Personal history of transient ischemic attack (TIA), and cerebral infarction without residual deficits; Z88.2 Allergy status to sulfonamides; Z91.09 Other allergy status, other than to drugs and biological substances

== ENCOUNTER 2020-04-08 12:26 | Inpatient (IN) | payer MEDICARE, OTHER ==
[~2020-04-08] VITALS: Ht 147.3 cm; Wt 70.3 kg
[~2020-04-08 12:26] MED LIST changes: +LEVOTHYROXINE125 MCG PO
[2020-04-08 12:39] VITALS: BP 112/90
[2020-04-08 12:51] LABS: URINE BILIRUBIN NEGATIVE (Negative); URINE BLOOD NEGATIVE (Negative); URINE CLARITY CLEAR; URINE COLOR YELLOW; URINE GLUCOSE-RANDOM NEGATIVE (Negative); URINE KETONES NEGATIVE (Negative); URINE LEUKOCYTES-REFLEX NEGATIVE (Negative); URINE NITRITE-REFLEX NEGATIVE (Negative); URINE PROTEIN NEGATIVE (Negative); URINE UROBILINOGEN 0.2 E.U./dl (0.2-1.0)
[2020-04-08 13:06] LABS: ABSOLUTE BASOPHILS 0.2 thou/uL (0.0-0.2); ABSOLUTE EOSINOPHILS 0.1 thou/uL (0.0-0.7); ABSOLUTE MONOCYTES 0.7 thou/uL (0.0-1.2); ABSOLUTE NEUTROPHILS 8.9 thou/uL (1.6-8.1); BASOPHILS 1.3 %; EOSINOPHILS 0.5 %; HEMOGLOBIN 9.2 gm/dL (12.0-15.0); MCH 25.7 pg (26.0-34.0); MCHC 29.7 g/dL (28.0-37.0); MCV 86.6 fL (80.0-100.0); MONOCYTES 5.5 %; MPV 7.2 fl. (7.2-11.1); NUCLEATED RBCS 0 /100WBC; PLATELET COUNT* 337 thou/uL (150-400); POLYS 75.7 %; RBC 3.58 mil/uL (4.20-5.00); RDW-CV 20.2 % (10.5-14.5); WBC 11.8 thou/uL (4.0-11.0)
[2020-04-08 13:15] LABS: CALCIUM 9.6 mg/dL (8.5-10.1); CREATININE 1.5 mg/dL (0.6-1.3); POTASSIUM 4.6 mmol/L (3.5-5.1)
[2020-04-08 13:23] LABS: APTT 22.5 Seconds (25.0-31.3); PROTIME 10.3 Seconds (9.20-11.50)
[2020-04-08 13:28] LABS: ALBUMIN 3.8 g/dL (3.4-5.0); TOTAL BILIRUBIN 0.3 mg/dL (<0.1-1.0)
[2020-04-08 13:43] LABS: ANISOCYTOSIS 1+; PLATELET ESTIMATE ADEQUATE
--- NOTE | 2020-04-08 14:53 | EKG ---
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: MS : 1935 Requested By: Guillermo Hendricks Order Number: [id number] MD: George Borges Measurements Intervals [place] Rate: 64 P: -13 [place]: 203 QRS: -16 QRSD: 92 T: 8 QT: 467 QTc: 482 Interpretive Statements Sinus rhythm Borderline left axis deviation Low voltage, precordial leads Consider anterior infarct Borderline T abnormalities, inferior leads Compared to ECG 01/18/2020 12:32:26 Low QRS voltage now present Myocardial infarct finding still present Electronically Signed On 04-08-2020 14:53:30 TINNING MACHINE SET UP OPERATOR by George Borges [email or web address] <ELECTRONICALLY SIGNED> By: George Borges MD, FACC 04/08/20 1453 1240 1240 George Borges MD, FACC /EPI
[2020-04-08 17:32] VITALS: BP 134/53
[2020-04-08 17:53] VITALS: BP 105/63
[2020-04-08 20:00] VITALS: BP 114/66
[2020-04-09] VITALS (9 sets, daily range): BP systolic 100–164; BP diastolic 58–75
[2020-04-09 04:22] LABS: HEMATOCRIT 26.2 % (37.0-47.0); HEMOGLOBIN 8.1 gm/dL (12.0-15.0); MCH 26.2 pg (26.0-34.0); MCV 84.4 fL (80.0-100.0); MPV 7.4 fl. (7.2-11.1); RBC 3.1 mil/uL (4.20-5.00); RDW-CV 19.9 % (10.5-14.5); WBC 8.9 thou/uL (4.0-11.0)
[2020-04-09 04:56] LABS: ALBUMIN 3.2 g/dL (3.4-5.0); ALKALINE PHOSPHATASE 117 U/L (46-116); ANION GAP 10 mmol/L (7-16); BUN 24 mg/dL (7-18); CALCIUM 8.6 mg/dL (8.5-10.1); CHLORIDE 105 mmol/L (98-107); CHOLESTEROL 191 mg/dL (<200); CO2 25 mmol/L (21-32); CREATININE 1.3 mg/dL (0.6-1.3); GLUCOSE 90 mg/dL (70-99); HDL CHOLESTEROL 53 mg/dL (>40); LDL CHOLESTEROL 115 mg/dL (<100); MAGNESIUM 2.1 mg/dL (1.8-2.4); POTASSIUM 4.5 mmol/L (3.5-5.1); SGOT 12 U/L (15-37); SGPT 17 U/L (30-65); SODIUM 140 mmol/L (136-145); TC:HDL 3.6 Ratio (Not establshd); TOTAL BILIRUBIN 0.4 mg/dL (<0.1-1.0); TOTAL PROTEIN 7.1 g/dL (6.4-8.2); TRIGLYCERIDE 118 mg/dL (<150); VLDL 24 mg/dL (<40)
[2020-04-09 05:01] LABS: SERUM ASSESSMENT CLEAR
[2020-04-09 11:00] LABS: % SATURATION 4 % (20-39); IRON 17 ug/dL (50-175)
[2020-04-10] VITALS: BP 157/61
[2020-04-10 04:00] VITALS: BP 124/56
[2020-04-10 04:51] LABS: HEMATOCRIT 24.4 % (37.0-47.0); HEMOGLOBIN 7.4 gm/dL (12.0-15.0); MCH 25.8 pg (26.0-34.0); MCHC 30.3 g/dL (28.0-37.0); MCV 84.9 fL (80.0-100.0); MPV 7.5 fl. (7.2-11.1); RBC 2.87 mil/uL (4.20-5.00); RDW-CV 20.2 % (10.5-14.5); WBC 7.2 thou/uL (4.0-11.0)
[2020-04-10 05:12] LABS: ALBUMIN 2.9 g/dL (3.4-5.0); CALCIUM 7.8 mg/dL (8.5-10.1); MAGNESIUM 1.9 mg/dL (1.8-2.4); POTASSIUM 4.2 mmol/L (3.5-5.1); TOTAL BILIRUBIN 0.2 mg/dL (<0.1-1.0); TOTAL PROTEIN 6.4 g/dL (6.4-8.2)
[2020-04-10 08:00] VITALS: BP 125/44
[2020-04-10] MEDS ORDERED: ASA81BEC PO (08:39)
[2020-04-10] MEDS ORDERED: SYNTHROID150 MCG PO (08:39)
[2020-04-10 11:00] VITALS: BP 125/44
[2020-04-10 12:42] VITALS: BP 125/44
== END 2020-04-10 12:30 | disposition home or self-care (01) | DRG 640 ==
LOC: M.ERS 12:26 → M.TBA-ER 14:29 → M.2W 16:20 → M.TBA-ER 16:20 → M.2W 17:30
PROVIDERS: Family Medicine; ADMIT Family Medicine; ATTEND Family Medicine
DX: E86.0 Dehydration (principal); N17.0 Acute kidney failure with tubular necrosis; D50.9 Iron deficiency anemia, unspecified; I25.10 Atherosclerotic heart disease of native coronary artery without angina pectoris; I10 Essential (primary) hypertension; M10.9 Gout, unspecified; E03.9 Hypothyroidism, unspecified; E66.01 Morbid (severe) obesity due to excess calories; G62.9 Polyneuropathy, unspecified; K21.9 Gastro-esophageal reflux disease without esophagitis; Z60.2 Problems related to living alone; Z96.1 Presence of intraocular lens; Z20.828 Contact with and (suspected) exposure to other viral communicable diseases; Z68.32 Body mass index [BMI] 32.0-32.9, adult; Z98.42 Cataract extraction status, left eye; Z98.41 Cataract extraction status, right eye; Z90.710 Acquired absence of both cervix and uterus; Z85.42 Personal history of malignant neoplasm of other parts of uterus; Z95.5 Presence of coronary angioplasty implant and graft; Z79.82 Long term (current) use of aspirin; Z79.899 Other long term (current) drug therapy; Z88.8 Allergy status to other drugs, medicaments and biological substances; Z88.2 Allergy status to sulfonamides

== ENCOUNTER 2020-06-20 14:04 | Inpatient (IN) | payer MEDICARE, OTHER ==
[~2020-06-20] VITALS: Ht 147.3 cm; Wt 65.3 kg
[~2020-06-20 14:04] MED LIST changes: +ASA81BEC PO; +SYNTHROID150 MCG PO
[2020-06-20 14:05] VITALS: BP 152/76
[2020-06-20 15:27] LABS: ABSOLUTE BASOPHILS 0.1 thou/uL (0.0-0.2); ABSOLUTE LYMPHOCYTES 0.9 thou/uL (0.8-5.3); ABSOLUTE MONOCYTES 0.7 thou/uL (0.0-1.2); ABSOLUTE NEUTROPHILS 8.7 thou/uL (1.6-8.1); BASOPHILS 0.6 %; EOSINOPHILS 0.3 %; HEMATOCRIT 23.9 % (37.0-47.0); MCHC 29.1 g/dL (28.0-37.0); MCV 75.5 fL (80.0-100.0); MONOCYTES 6.7 %; MPV 7.3 fl. (7.2-11.1); NUCLEATED RBCS 0 /100WBC; PLATELET COUNT* 323 thou/uL (150-400); POLYS 83.4 %; RBC 3.17 mil/uL (4.20-5.00); RDW-CV 22.6 % (10.5-14.5); WBC 10.5 thou/uL (4.0-11.0)
[2020-06-20 15:34] LABS: CALCIUM 9.1 mg/dL (8.5-10.1); CREATININE 1.4 mg/dL (0.6-1.3); POTASSIUM 4.4 mmol/L (3.5-5.1)
[2020-06-20 15:37] LABS: PROTIME 10.5 Seconds (9.20-11.50)
[2020-06-20 15:48] LABS: ALBUMIN 3.6 g/dL (3.4-5.0); CK-MB MASS 1.5 ng/mL (<0.5-3.6); MAGNESIUM 2.2 mg/dL (1.8-2.4); TOTAL BILIRUBIN 0.4 mg/dL (<0.1-1.0); TOTAL PROTEIN 7.1 g/dL (6.4-8.2)
[2020-06-20 16:08] LABS: PLATELET ESTIMATE ADEQUATE
[2020-06-20 16:09] LABS: HYPOCHROMASIA 2+; MICROCYTES 1+; OVALOCYTES Occasional
[2020-06-20 16:11] LABS: POLYCHROMASIA 1+
[2020-06-20 17:40] LABS: APTT ND Seconds (25.0-31.3)
[2020-06-20 20:25] VITALS: BP 114/48
[2020-06-20 21:00] VITALS: BP 101/43
--- NOTE | 2020-06-20 21:00 | NUR ---
RECEIVED REPORT FROM ER, PT TO ROOM AT 2044, NO ACUTE DISTRESS. GENERALIZED EDEMA NOTED, LAUREN ANKLES WITH 2+ EDEMA. SL NOTED TO RT FOOT. ASSISTED PT TO BSC, MOVES SLOWLY. TELEMETRY ON SHOWING SR. SEE ADMISSION ASSESSMENT AND HX. WILL CONT TO MONITOR AND ASSIST NEEDED.
[2020-06-21] VITALS (23 sets, daily range): BP systolic 94–141; BP diastolic 36–73
--- NOTE | 2020-06-21 03:25 | NUR ---
PT C/O RT ARM/NECK PAIN, PO MED GIVEN WITHOUT RELIEF. AT APPROX 0200 C/O CHEST PRESSURE, EKG DONE SHOWING ACUTE WA. VERIFIED BY DR LOPEZ IN ER. DR LEIGH NOTIFIED. INFORMED OF PT CONDITION AND SENT EKG TO HIM. SPOKE WITH PT CONCERNING GOING TO WET TRIMMER FOR INTERVENTION, PERMIT SIGNED. SON CANDIE NOTIFIED OF PT CONDITION. SOLORZANO INSERTED WITHOUT DIFFICULTY. CHIEF COMPLIANCE OFFICER NOTIFIED, WET TRIMMER CALLED IN.
[2020-06-21 04:56] LABS: HEMATOCRIT 21.2 % (37.0-47.0); MCH 22.1 pg (26.0-34.0); MPV 7.5 fl. (7.2-11.1); NUCLEATED RBCS 1 /100WBC; PLATELET COUNT* 290 thou/uL (150-400); RBC 2.79 mil/uL (4.20-5.00); RDW-CV 22.5 % (10.5-14.5); WBC 8.3 thou/uL (4.0-11.0)
[2020-06-21 05:07] LABS: ALBUMIN 3.2 g/dL (3.4-5.0); CALCIUM 8.9 mg/dL (8.5-10.1); CREATININE 1.9 mg/dL (0.6-1.3); POTASSIUM 4.6 mmol/L (3.5-5.1); TOTAL BILIRUBIN 0.1 mg/dL (<0.1-1.0); TOTAL PROTEIN 6.3 g/dL (6.4-8.2)
[2020-06-21 05:25] LABS: HEMOGLOBIN 6.2 gm/dL (12.0-15.0)
[2020-06-21 07:53] LABS: ABSOLUTE LYMPHOCYTES 1.4 thou/uL (0.8-5.3); ABSOLUTE MONOCYTES 0.3 thou/uL (0.0-1.2); ABSOLUTE NEUTROPHILS 6.6 thou/uL (1.6-8.1)
[2020-06-21 07:54] LABS: ANISOCYTOSIS 1+; HYPOCHROMASIA 2+; MICROCYTES 1+; OVALOCYTES 1+; PLATELET ESTIMATE ADEQUATE; POIKILOCYTOSIS 1+
[2020-06-21 10:57] LABS: HEMATOCRIT 28.5 % (37.0-47.0); HEMOGLOBIN 8.6 gm/dL (12.0-15.0)
--- NOTE | 2020-06-21 11:01 | EKG ---
[place] [address] ELECTROCARDIOGRAM REPORT Name: JENI GORE Room: [address] ADM IN .R.#: [id number] Admission: 06/20/20 Attend Phys: Ruiz Gilmore Discharge: Date of : 35 Date of Service: 06/20/20 1410 Report #: [id number] THIS REPORT FOR: //name// [facility] ED Test Date: 2020-06-20 Test Time: 14:10:15 Pat Name: JENI GORE Department: Room: [facility] Gender: F Shorthand Teacher: CCD : 1935 Requested By: Kyle Liu Order Number: [id number] MD: Oleg Cardona Measurements Intervals [place] Rate: 92 P: 44 SD: 194 QRS: -9 QRSD: 82 T: -28 QT: 352 QTc: 436 Interpretive Statements Sinus rhythm Inferior infarct, age indeterminate Compared to ECG 04/08/2020 12:40:39 T-wave abnormality no longer present Myocardial infarct finding still present Electronically Signed On 06-21-2020 11:01:44 SHELLFISH CHECKER by Oleg Cardona [email or web address] <ELECTRONICALLY SIGNED> By: Oleg Cardona MD, FACC 06/21/20 1101 1410 1410 Oleg Cardona MD, [facility] /EPI
--- NOTE | 2020-06-21 11:05 | EKG ---
[place] [address] ELECTROCARDIOGRAM REPORT Name: JENI GORE Room: [address] ADM IN [facility].#: [id number] Admission: 06/20/20 Attend Phys: Ruiz Gilmore Discharge: Date of : 35 Date of Service: 06/21/20222 Report #: [id number] THIS REPORT FOR: //name// [facility] Test Date: 2020-06-21 Test Time: 02:23:33 Pat Name: JENI GORE Department: Room: [facility] Gender: F Automatic Dispenser Mechanic: HERMILO : 1935 Requested By: Oleg Cardona Order Number: [id number] MD: Oleg Cardona Measurements Intervals [place] Rate: 83 P: 20 [place]: 176 QRS: -9 QRSD: 78 T: 104 QT: 370 QTc: 435 Interpretive Statements Sinus rhythm Probable anterolateral infarct, acute ST elevation, consider inferior injury Compared to ECG 06/20/2020 14:10:15 ST (T wave) deviation now present Myocardial infarct finding still present Electronically Signed On 06-21-2020 11:04:59 ENVIRONMENTAL HEALTH INSPECTOR by Oleg Cardona [email or web address] <ELECTRONICALLY SIGNED> By: Oleg Cardona MD, [facility] 06/21/20 1104 2 2 Oleg Cardona MD, [facility] /EPI
--- NOTE | 2020-06-21 13:49 | 2DMMODE ---
[place] [address] 2 D/M-MODE ECHOCARDIOGRAM Name: JENI GORE Room: [address] ADM [place] .R#: [id number] Admission: 06/20/20 Attend Phys: Ruiz Gilmore Discharge: Date of : 35 Date of Service: 06/21/20 1349 Report #: [id number] THIS REPORT FOR: cc: Yoana Wooyd Maggie M. DO Liston, Michael J. MD [facility] ~ APPROVED REPORT Study performed: 06/21/2020 09:11:42 EXAM: Limited 2D Echocardiogram Patient Location: In-Patient Room #: [facility] Status: routine BSA: 1.56 HR: 84 bpm BP: 135/65 mmHg Rhythm: NSR Other Information Study Quality: Good Indications Chest Pain Left Ventricle The left ventricle is normal size. There is akinesis of the apex and mid to apical portions of the anterior anteroseptal smallwood. Moderate concentric left ventricular hypertrophy. Left ventricular systolic function is mildly decreased. LVEF is 45-50%. Right Ventricle The right ventricle is normal size. The right ventricular systolic function is normal. Atria The left atrium size is normal. The right atrium size is normal. Aortic Valve The aortic valve is normal in structure. Mitral Valve The mitral valve is [place] [address] 2 D/M-MODE ECHOCARDIOGRAM Name: JENI GORE Room: [address] IN M.R.#: [id number] Admission: 06/20/20 Attend Phys: Ruiz Gilmore Discharge: Date of : 35 Date of Service: 06/21/20 1349 Report #: [id number] Tricuspid Valve The tricuspid valve is normal in structure. Pulmonic Valve The pulmonary valve is normal in structure. Great Vessels The aortic root is normal in size. IVC is normal in size and collapses >50% with inspiration. Pericardium There is no pericardial effusion. <Conclusion> The left ventricle is normal size. Moderate concentric left ventricular hypertrophy. Left ventricular systolic function is mildly decreased. LVEF is 45-50%. There is akinesis of the apex and mid to apical portions of the anterior anteroseptal smallwood. IVC is normal in size and collapses >50% with inspiration. <ELECTRONICALLY SIGNED> By: Oleg Cardona MD, FACC 06/21/20 1349 48 48 Oleg Cardona MD, FACC /INF
--- NOTE | 2020-06-21 14:13 | NUR ---
ICU rounds: Cath last night, 2 stents placed. 1 unity of blood today. Off bedrest, anticipate tele status tomorrow. Pt is A&O. Resides at home alone. Independent. Pt has a cane and walker that she can use for mobility. No hx of HH. Hx of SNF at [facility] post a knee replacement. [place], Pt open to HH if needed. Following.
--- NOTE | 2020-06-21 18:49 | NUR ---
THIS TEACHER AIDE CLERICAL ASSUMED CARE OF PT AT 0700. PT JUST CAME FOM CONTROL CLERK REPAIRS TWO STENTS PLACED IN THE LAD AND CIRC SHEATH WAS LEFT IN PLACE BLOOD TRANSFUSING THROUGH DUE TO LACK OF ACCESS PT HAS IV 20G IN R FOOT. PICC LINE WAS ORDERED PICC LINE NURSE WAS NOT HERE TODAY. CONTROL CLERK REPAIRS ASKED ABOUT CENTRAL THIS TEACHER AIDE CLERICAL ASKED DR KUSH SOTELO STATED IS WARRENTED AND WOULD REASSESS TOMORROW IF SO PICC LINE COULD BE INSERTED PT IS SALINE LOCKED. SHEATH REMOVED BY BUMPER OPERATOR AT 1200 TOLERATED WELL GROIN SITE DRY INTACT NO HEMATOMA. PAIN MEDICATION GIVEN THROUGHOUT SHIFT DUE TO BACK ARM AND HEADACHE. TROP 13 THEN CAME BACK AT 21 DR DUNLAP NOTIFIED PT ASYMPTOMATIC HE STATED NOT TO CALL UNLESS PT IS HAVE WORSENING CHEST PAIN. FAMILY UPDATED THROUGH SHIFT
[2020-06-22] VITALS (18 sets, daily range): BP systolic 89–122; BP diastolic 35–103
[2020-06-22 04:15] LABS: ABSOLUTE BASOPHILS 0.1 thou/uL (0.0-0.2); ABSOLUTE EOSINOPHILS 0.1 thou/uL (0.0-0.7); ABSOLUTE LYMPHOCYTES 1.5 thou/uL (0.8-5.3); ABSOLUTE MONOCYTES 1.2 thou/uL (0.0-1.2); HEMATOCRIT 25.9 % (37.0-47.0); HEMOGLOBIN 8.1 gm/dL (12.0-15.0); LYMPHOCYTES 15.1 %; MCHC 31.3 g/dL (28.0-37.0); MCV 73.7 fL (80.0-100.0); MONOCYTES 11.8 %; NUCLEATED RBCS 1 /100WBC; PLATELET COUNT* 267 thou/uL (150-400); POLYS 71.1 %; RBC 3.52 mil/uL (4.20-5.00); WBC 9.9 thou/uL (4.0-11.0)
[2020-06-22 04:39] LABS: ALBUMIN 3.2 g/dL (3.4-5.0); CALCIUM 8.8 mg/dL (8.5-10.1); CREATININE 1.5 mg/dL (0.6-1.3); POTASSIUM 3.9 mmol/L (3.5-5.1); TOTAL BILIRUBIN 0.5 mg/dL (<0.1-1.0); TOTAL PROTEIN 6.5 g/dL (6.4-8.2)
[2020-06-22 06:13] LABS: HYPOCHROMASIA 1+; MICROCYTES 1+
[2020-06-22 06:14] LABS: ANISOCYTOSIS 2+; PLATELET ESTIMATE ADEQUATE
--- NOTE | 2020-06-22 10:41 | CARD ---
[facility] [address] [place] [address] CARDIAC CATH REPORT Name: JENI GORE Room: [address] IN ..#: [id number] Admission: 06/20/20 Attend Phys: Jeff Patterson Discharge: Date of : 35 Report #: [id number] THIS REPORT FOR: cc: Yoana Woody Maggie M. DO ~ Eh Johnson MD APPROVED REPORT Study performed: 06/21/2020 04:08:22 Patient Details Patient Status: In-Patient Room #: 201 The patient is a 84 year-old female Event Personnel Eh Johnson Warp Picker, Sarah Snell RN RN, Seven Reveles ELECTRICAL INTERN Scrub, Nan Katz RTR Monitor Procedures Performed Art Access - R femoral artery Tuan Access - R femoral vein Coronary Angiography Only Revasc AMI Total/Sub Single LAD ROSARIO Place w/wo plasty Single CIRC Hemostasis with Manual pressure Indication STEMI (>0 to less than or equal to 6 hours), Dyspnea, Chest pain Risk Factors Hypercholesterolemia, Coronary Artery DiseaseHypertension Previous Procedures/Diagnoses Previous PCI Admission/Lab Medications/Medications given during procedure Lidocaine Subcut 14 ml, Oxygen Nasal cannula 2 l per min, 0.9% Sodium Chloride IV 125 ml per hr, Midazolam (Versed) IV 1 mg, Angiomax IV 10 ml, Angiomax Drip IV 22.1 ml per hr, Plavix PO 600 mg, Aggrastat IV 6.7 ml Procedure Narrative The patient was brought emergently to the Cardiac Catheterization Laboratory and was prepped and draped in a sterile manner. The right femoral was infiltrated with 2% [place] [address] CARDIAC CATH REPORT Name: JENI GORE Room: [address] IN [facility]#: [id number] Admission: 06/20/20 Attend Phys: Jeff Patterson Discharge: Date of : 35 Report #: [id number] [place] 6 FR sheath was inserted into the right femoral artery. Coronary angiography was performed using coronary diagnostic catheters. The left coronary system was accessed and visualized with a Guide 6 Fr XB 3 100 cm catheter. The patient tolerated the procedure well and there were no complications associated with the procedure. There was no hematoma. A 5 Fr sheath was inserted into the right femoral vein. Both sheaths were sutured to the leg. Intraoperative Conscious Sedation Sedation start time: 04:10 Case end Time: 05:25 Versed 1 mg Fluoro Time: 22.1 minutes Dose: DAP 868200 cGycm2 3099 mGy Contrast Type and Amount: Visipaque 335 ml Coronary Angiography The patient's coronary anatomy is right dominant. Diagnostic Cath Left Main The left main artery is a large-caliber vessel, patent with no flow-limiting lesions. LAD There are multiple overlapping stents at the proximal segment of the LAD, extending all the way to the distal segment just before the apex. There is a severe occlusion at the proximal LAD just before the beginning of the stents. There is a total occlusion in the stented area at the distal LAD segment. Diagonal 1 There is moderate diffuse restenosis within the stent in the proximal segment of the first diagonal artery. Circumflex There is a severe occlusion in the proximal segment, 90%. There is moderate restenosis within the stent in the mid segment. There is a borderline stenosis in the distal segment of the left circumflex artery, recommend medical therapy. OM1 There is a patent stent in the proximal segment with mild restenosis. The remaining segments of the first obtuse marginal artery are patent with no flow-limiting lesions. Right Coronary This vessel was not injected. 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 The distal RCA is filled via collateral circulation from the left coronary artery. Left Ventriculography Left [place] [address] CARDIAC CATH REPORT Name: JENI GORE Room: [address] IN [facility]#: [id number] Admission: 06/20/20 Attend Phys: Jeff Patterson Discharge: Date of : 35 Report #: [id number] Hemodynamics No left ventricular pressure was taken. PCI Technique Lesion Anticoagulation was achieved with Angiomax Drip. Patient was preloaded with Angiomax IV 10 ml. Percutaneous coronary intervention was performed on the distal left anterior descending artery segment. The lesion stenosis prior to intervention was 100% with DAGOBERTO 0 flow. A 6FR XB 3.0 100CM Guide Catheter was used to engage the left ostium. A IG: Luge Magnet Wire 180 Interventional Guidewire was used to cross the lesion. BALLOON DILATION A Balloon catheter Euphora SC 2.25x12 was inserted and inflated up to 14.00atm for 15seconds. Additional Inflation: 14.00atm for 5seconds. A balloon catheter NC Euphora 2.5 x 12mm was inserted and inflated up to 18 TAYLA for 23 seconds. Final angiography reveals 10 % stenosis with DAGOBERTO 3 flow. PCI Technique Lesion 2 Percutaneous Coronary Intervention was performed on the proximal left anterior descending artery segment. Patient was preloaded with Angiomax IV 10 ml. The lesion stenosis prior to intervention was 90% with DAGOBERTO 2 flow. A 6FR XB 3.0 100CM Guide Catheter was used to engage the left ostium. A IG: Luge magnet Wire 180 Interventional Guidewire was used to cross the lesion. Balloon Dilation A Balloon catheter Euphora SC 2.48h91cs was inserted and inflated up to 18.00atm for 10seconds. Additional Inflation: 18.00atm for 12seconds. A balloon catheter NC Euphora 2.5 x 12mm was inserted and inflated up to 18 TAYLA for 23 seconds and 20 TAYLA for 20 seconds. Stent Deployment A drug-eluting stent [place] RX Stent 2.96F38oc was inserted and inflated up to 14.00atm for 16seconds. Additional Inflation: 16.00atm for 8seconds. Additional Inflation: 18.00atm for 24seconds. Post Stent Deployment Balloon Dilation A Balloon catheter NC Euphora 3.0 x 8 was inserted and inflated up to 20atm for 14seconds. Final angiography reveals 10 % stenosis with DAGOBERTO [address] [address] CARDIAC CATH REPORT Name: JENI GORE Room: [address] IN .R.#: [id number] Admission: 06/20/20 Attend Phys: Jeff Patterson Discharge: Date of : 35 Report #: [id number] PCI Technique Lesion 3 Percutaneous Coronary Intervention was performed on the proximal circumflex artery segment. Patient was preloaded with Aggrastat IV 6.7 ml. A 6FR XB 3.0 100CM Guide Catheter was used to engage the left ostium. A IG: ProwaterFlex 180CM Interventional Guidewire was used to cross the lesion. Balloon Dilation A Balloon catheter NC Euphora 2.5x8 was inserted and inflated up to 15.00atm for 8seconds. Stent Deployment A drug-eluting stent [place] RX Stent 3.0X8mm was inserted and inflated up to 14.00atm for 12seconds. Post Stent Deployment Balloon Dilation A Balloon catheter NC Euphora 3.0 x 8 was inserted and inflated up to 20.00atm for 12seconds. Conclusion 1. Successful insertion of a drug-eluting stent into the proximal LAD stenosis. 2. Successful balloon angioplasty of the total occlusion in the distal LAD stent, with sabianist of DAGOBERTO-3 blood flow to the apical LAD region. 3. Successful insertion of a drug-eluting stent into the proximal left circumflex artery. 4. There are patent stents in the mid left circumflex segment and proximal OM1 segment. 5. There is a borderline stenosis in the distal left circumflex segment, recommend medical therapy. 6. The RCA is totally occluded, with collateral filling of the distal RCA from the left coronary artery. 7. Recommend dual antiplatelet therapy and aggressive risk factor management. <ELECTRONICALLY SIGNED> By: Eh Johnson MD 06/22/20 [phone] 1041Eh Johnson MD /JUANITA
--- NOTE | 2020-06-22 14:03 | NUR ---
ICU rounds: Tele status. GI following. Anticipate dc in 1-2 days to home with [facility] [phone]
--- NOTE | 2020-06-22 22:53 | NUR ---
REPORT GIVEN TO IONA SQUIRES. PT BEING TRANSFERED TO ROOM 203.
--- NOTE | 2020-06-22 23:04 | NUR ---
PT BEING TRANSFERED AT THIS TIME.
--- NOTE | 2020-06-23 02:40 | NUR ---
PT TRANSFERED TO 203 FROM ICU. NO C/O PAIN OR DISCOMFORT NOTEDC BY PT. INTRODUCED TO ROOM. PT AMBULATED TO BATHROOM WITH STB ASSIST WITHOUT DIFFICULTY. CURRENTLY SLEEPING IN BED WITH BED ALARM ON AND CALL LIGHT WITHIN REACH. HOURLY ROUNDING IN PLACE FOR PT SAFETY.
[2020-06-23 04:19] VITALS: BP 136/57
[2020-06-23 04:43] LABS: ABSOLUTE BASOPHILS 0.1 thou/uL (0.0-0.2); ABSOLUTE EOSINOPHILS 0.1 thou/uL (0.0-0.7); ABSOLUTE LYMPHOCYTES 1.9 thou/uL (0.8-5.3); BASOPHILS 0.7 %; EOSINOPHILS 1.2 %; HEMATOCRIT 29.4 % (37.0-47.0); HEMOGLOBIN 8.9 gm/dL (12.0-15.0); MCH 23.4 pg (26.0-34.0); MCHC 30.2 g/dL (28.0-37.0); MCV 77.6 fL (80.0-100.0); MONOCYTES 12.7 %; MPV 7.7 fl. (7.2-11.1); NUCLEATED RBCS 1 /100WBC; PLATELET COUNT* 251 thou/uL (150-400); POLYS 61.4 %; RBC 3.79 mil/uL (4.20-5.00); RDW-CV 21.9 % (10.5-14.5); WBC 8.1 thou/uL (4.0-11.0)
[2020-06-23 05:15] LABS: POTASSIUM 4.6 mmol/L (3.5-5.1)
[2020-06-23 08:00] VITALS: BP 122/50
[2020-06-23] MEDS ORDERED: PLAVIX 75 MG TA75 M1 PO (10:43)
[2020-06-23] MEDS ORDERED: TOPROL XL25 MG PO (10:43)
[2020-06-23 11:31] VITALS: BP 122/50
[2020-06-23 11:32] VITALS: BP 122/50
[2020-06-23 11:33] VITALS: BP 122/50
[2020-06-23 12:31] VITALS: BP 122/50
--- NOTE | 2020-06-23 12:38 | NUR ---
RECEIVED REPORT AROUND 0715. ASSUMED CARE. VS AND ASSESSMENT CHARTED. IV INTACT. HEART MONITOR ATTACHED AT SR WITH 1ST DEG. PT LYING IN BED THIS AM. PT UP WITH ASSIST. MEDS GIVEN PER JUN. HOURLY ROUNDING PERFORMED. PT STATED "NO" TO ANY PAIN. DISCHARGE ORDERS RECEIVED. PACKET GIVEN TO PT. COMMUNICATED UNDERSTANDING. IV TAKEN OUT. HEART MONITOR OFF. PT LEFT UNIT AT 1230 VIA WHEEL CHAIR WITH NURSING STAFF AND ALL BELONGINGS.
--- NOTE | 2020-06-23 12:57 | NUR ---
Pt discharged to home today, CM faxed dc orders to [facility]
== END 2020-06-23 12:30 | disposition home health service (06) | DRG 246 ==
LOC: M.ERS 14:04 → M.TBA-ER 15:38 → M.2W 15:38 → M.ICU 15:38 → M.2W 20:38 → M.ICU 06-21 05:40 → M.2W 06-22 23:14
PROVIDERS: Emergency Medicine; Internal Medicine; ADMIT Internal Medicine; ATTEND Internal Medicine
PROC: 30233N1 Transfusion of Nonautologous Red Blood Cells into Peripheral Vein, Percutaneous Approach (ICD-10-PCS; principal; 2020-06-21)
PROC: 4A023N7 Measurement of Cardiac Sampling and Pressure, Left Heart, Percutaneous Approach (ICD-10-PCS; principal; 2020-06-21)
PROC: B211YZZ Fluoroscopy of Multiple Coronary Arteries using Other Contrast (ICD-10-PCS; principal; 2020-06-21)
PROC: 027135Z Dilation of Coronary Artery, Two Arteries with Two Drug-eluting Intraluminal Devices, Percutaneous Approach (ICD-10-PCS; principal; 2020-06-21)
DX: I21.19 ST elevation (STEMI) myocardial infarction involving other coronary artery of inferior wall (principal); N17.0 Acute kidney failure with tubular necrosis; I50.43 Acute on chronic combined systolic (congestive) and diastolic (congestive) heart failure; I13.0 Hypertensive heart and chronic kidney disease with heart failure and stage 1 through stage 4 chronic kidney disease, or unspecified chronic kidney disease; G62.9 Polyneuropathy, unspecified; I25.10 Atherosclerotic heart disease of native coronary artery without angina pectoris; N18.9 Chronic kidney disease, unspecified; E78.5 Hyperlipidemia, unspecified; E03.9 Hypothyroidism, unspecified; M10.9 Gout, unspecified; Z20.822 Contact with and (suspected) exposure to COVID-19; K44.9 Diaphragmatic hernia without obstruction or gangrene; D64.9 Anemia, unspecified; I25.110 Atherosclerotic heart disease of native coronary artery with unstable angina pectoris; I25.5 Ischemic cardiomyopathy; Z95.5 Presence of coronary angioplasty implant and graft; Z88.2 Allergy status to sulfonamides; Z88.8 Allergy status to other drugs, medicaments and biological substances; Z80.59 Family history of malignant neoplasm of other urinary tract organ; Z80.0 Family history of malignant neoplasm of digestive organs; Z83.6 Family history of other diseases of the respiratory system; Z82.49 Family history of ischemic heart disease and other diseases of the circulatory system; Z90.722 Acquired absence of ovaries, bilateral; Z90.710 Acquired absence of both cervix and uterus

== ENCOUNTER 2020-08-17 11:27 | Inpatient (IN) | payer MEDICARE, OTHER ==
[~2020-08-17] VITALS: Ht 149.9 cm; Wt 68.0 kg
[2020-08-17 11:38] VITALS: BP 151/69
[2020-08-17 12:11] LABS: URINE BILIRUBIN NEGATIVE (Negative); URINE BLOOD NEGATIVE (Negative); URINE CLARITY CLEAR; URINE COLOR YELLOW; URINE GLUCOSE-RANDOM NEGATIVE (Negative); URINE KETONES NEGATIVE (Negative); URINE LEUKOCYTES-REFLEX NEGATIVE (Negative); URINE NITRITE-REFLEX NEGATIVE (Negative); URINE PROTEIN NEGATIVE (Negative); URINE UROBILINOGEN 0.2 E.U./dl (0.2-1.0)
[2020-08-17 12:55] LABS: ABSOLUTE BASOPHILS 0.1 thou/uL (0.0-0.2); ABSOLUTE EOSINOPHILS 0.2 thou/uL (0.0-0.7); ABSOLUTE LYMPHOCYTES 1.4 thou/uL (0.8-5.3); ABSOLUTE MONOCYTES 0.8 thou/uL (0.0-1.2); ABSOLUTE NEUTROPHILS 7.1 thou/uL (1.6-8.1); BASOPHILS 1.1 %; EOSINOPHILS 2.2 %; HEMATOCRIT 38.8 % (37.0-47.0); HEMOGLOBIN 11.9 gm/dL (12.0-15.0); LYMPHOCYTES 14.7 %; MCH 27.3 pg (26.0-34.0); MCHC 30.6 g/dL (28.0-37.0); MCV 89.1 fL (80.0-100.0); MONOCYTES 8.2 %; MPV 7.8 fl. (7.2-11.1); NUCLEATED RBCS 0 /100WBC; PLATELET COUNT* 216 thou/uL (150-400); POLYS 73.8 %; RBC 4.36 mil/uL (4.20-5.00); RDW-CV 25.1 % (10.5-14.5); WBC 9.7 thou/uL (4.0-11.0)
[2020-08-17 12:59] LABS: CALCIUM 9.6 mg/dL (8.5-10.1); CREATININE 1.7 mg/dL (0.6-1.3)
[2020-08-17 13:10] LABS: ALBUMIN 3.9 g/dL (3.4-5.0); TOTAL BILIRUBIN 0.3 mg/dL (<0.1-1.0); TOTAL PROTEIN 7.9 g/dL (6.4-8.2)
[2020-08-17 13:31] LABS: PLATELET ESTIMATE ADEQUATE; TARGET CELLS 1+
[2020-08-17] MEDS ORDERED: NORCO5 PO (15:53)
[2020-08-17 17:56] VITALS: BP 108/37
[2020-08-17 20:53] VITALS: BP 121/52
[2020-08-17 21:00] VITALS: BP 110/56
[2020-08-18] VITALS (7 sets, daily range): BP systolic 102–128; BP diastolic 36–66
--- NOTE | 2020-08-18 12:11 | EKG ---
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: ALEX : 1935 Requested By: Albina Lantigua Order Number: [id number] MD: Elias Rivas Measurements Intervals [place] Rate: 65 P: -3 HI: 201 QRS: -41 QRSD: 91 T: 125 QT: 519 QTc: 540 Interpretive Statements Sinus rhythm Inferior infarct, old Anterolateral infarct, age indeterminate Prolonged QT interval Compared to ECG 06/21/2020 02:23:33 Prolonged QT interval now present ST (T wave) deviation no longer present Myocardial infarct finding still present Electronically Signed On 08-18-2020 12:11:34 CDT by Elias Rivas [email or web address] <ELECTRONICALLY SIGNED> By: Elias Rivas MD, [facility] 08/18/20 1211 1158 1158 Elias Rivas MD, [facility] /EPI
[2020-08-19 04:35] VITALS: BP 142/51
[2020-08-19 08:12] VITALS: BP 112/69
[2020-08-19 10:17] VITALS: BP 112/69
[2020-08-19 13:09] VITALS: BP 112/69
== END 2020-08-19 13:56 | disposition home health service (06) | DRG 92 ==
LOC: M.ERS 11:27 → M.2W 13:54 → M.TBA-ER 13:54 → M.2W 20:49
PROVIDERS: Nurse Practitioner Family; ADMIT Internal Medicine; ATTEND Internal Medicine
DX: R26.89 Other abnormalities of gait and mobility (principal); I50.22 Chronic systolic (congestive) heart failure; N18.4 Chronic kidney disease, stage 4 (severe); I13.0 Hypertensive heart and chronic kidney disease with heart failure and stage 1 through stage 4 chronic kidney disease, or unspecified chronic kidney disease; R53.81 Other malaise; I25.10 Atherosclerotic heart disease of native coronary artery without angina pectoris; M48.061 Spinal stenosis, lumbar region without neurogenic claudication; E03.9 Hypothyroidism, unspecified; G62.9 Polyneuropathy, unspecified; Z20.822 Contact with and (suspected) exposure to COVID-19; Z96.651 Presence of right artificial knee joint; Z95.5 Presence of coronary angioplasty implant and graft; Z85.42 Personal history of malignant neoplasm of other parts of uterus; Z90.722 Acquired absence of ovaries, bilateral; Z90.710 Acquired absence of both cervix and uterus; Z88.2 Allergy status to sulfonamides; Z88.8 Allergy status to other drugs, medicaments and biological substances

== ENCOUNTER → 2020-09-06 | Outpatient (CLI) | payer MEDICARE, OTHER ==
[~2020-09-06] MED LIST changes: +NORCO5 PO
== END ==
LOC: M.MRI 08-10 13:30
PROVIDERS: ATTEND Psychiatry & Neurology Neurology
DX: M47.22 Other spondylosis with radiculopathy, cervical region (principal); M47.816 Spondylosis without myelopathy or radiculopathy, lumbar region; M48.061 Spinal stenosis, lumbar region without neurogenic claudication; M54.2 Cervicalgia; M54.5 Low back pain; M48.02 Spinal stenosis, cervical region; N28.1 Cyst of kidney, acquired

== ENCOUNTER 2020-09-29 13:35 | Inpatient (IN) | payer MEDICARE, OTHER ==
[~2020-09-29] VITALS: Ht 147.3 cm; Wt 67.6 kg
[2020-09-29] VITALS (7 sets, daily range): BP systolic 123–180; BP diastolic 41–96
--- NOTE | ~2020-09-29 | PROC ---
[facility] [address] [place] [address] PROCEDURE REPORT Name: JENI GORE Room: [address] IN M.R.#: [id number] Admission: 09/29/20 Attend Phys: Jeff Patterson Discharge: 10/01/20 Date of : 35 Report #: [id number] THIS REPORT FOR: cc: Yoana Woody Maggie M. DO [facility],Medical Records Staff ~ For GI report, please see the Provation report in Perceptive 7 content. By: 1317Medical Records Staff PAT /SCOT
[2020-09-29 14:49] LABS: URINE BILIRUBIN NEGATIVE (Negative); URINE BLOOD NEGATIVE (Negative); URINE CLARITY CLEAR; URINE COLOR YELLOW; URINE GLUCOSE-RANDOM NEGATIVE (Negative); URINE KETONES NEGATIVE (Negative); URINE LEUKOCYTES-REFLEX TRACE (Negative); URINE NITRITE-REFLEX NEGATIVE (Negative); URINE PROTEIN NEGATIVE (Negative); URINE SPECIFIC GRAVITY 1.015 (1.005-1.030); URINE UROBILINOGEN 0.2 E.U./dl (0.2-1.0)
[2020-09-29 14:55] LABS: BACTERIA-REFLEX 1-9 Few /HPF (None Seen); CASTS None Seen /LPF (None Seen); CRYSTALS None Seen /LPF (None Seen); SQUAMOUS 0-3 Few /LPF (0-3); URINE RBC 0-2 Rare /HPF (0-2); URINE WBC-REFLEX 0-5 Rare /HPF (0-5)
[2020-09-29 15:04] LABS: ABSOLUTE BASOPHILS 0.1 thou/uL (0.0-0.2); ABSOLUTE EOSINOPHILS 0.1 thou/uL (0.0-0.7); ABSOLUTE LYMPHOCYTES 1.5 thou/uL (0.8-5.3); ABSOLUTE MONOCYTES 0.8 thou/uL (0.0-1.2); BASOPHILS 0.6 %; EOSINOPHILS 0.8 %; LYMPHOCYTES 14.2 %; MCH 25.5 pg (26.0-34.0); MCHC 30.5 g/dL (28.0-37.0); MCV 83.8 fL (80.0-100.0); MONOCYTES 7.3 %; MPV 7.6 fl. (7.2-11.1); NUCLEATED RBCS 0 /100WBC; PLATELET COUNT* 238 thou/uL (150-400); POLYS 77.1 %; RBC 2.01 mil/uL (4.20-5.00); RDW-CV 24.3 % (10.5-14.5); WBC 10.3 thou/uL (4.0-11.0)
[2020-09-29 15:06] LABS: HEMATOCRIT 16.9 % (37.0-47.0); HEMOGLOBIN 5.1 gm/dL (12.0-15.0)
[2020-09-29 15:12] LABS: CALCIUM 8.8 mg/dL (8.5-10.1); CREATININE 1.7 mg/dL (0.6-1.3); POTASSIUM 5.6 mmol/L (3.5-5.1)
[2020-09-29 15:17] LABS: ALBUMIN 3.4 g/dL (3.4-5.0); TOTAL BILIRUBIN 0.2 mg/dL (<0.1-1.0); TOTAL PROTEIN 6.5 g/dL (6.4-8.2)
--- NOTE | 2020-09-29 16:41 | EKG ---
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: CHAKA : 1935 Requested By: Marco A Streeter Order Number: [id number] MD: Oleg Cardona Measurements Intervals [place] Rate: 66 P: 19 NV: 184 QRS: -14 QRSD: 79 T: 189 QT: 468 QTc: 491 Interpretive Statements Sinus rhythm Inferior infarct, old Consider anterior infarct Compared to ECG 08/17/2020 11:58:15 Prolonged QT interval no longer present Myocardial infarct finding still present Electronically Signed On 09-29-2020 16:41:21 CDT by Oleg Cardona [email or web address] <ELECTRONICALLY SIGNED> By: Oleg Cardona MD, [facility] 09/29/20 1641 1347 1347 Oleg Cardona MD, [facility] /EPI
[2020-09-30] VITALS (16 sets, daily range): BP systolic 142–185; BP diastolic 41–97
--- NOTE | 2020-09-30 08:26 | NUR ---
HOLD IVF PER DR. BELL.
[2020-09-30 09:26] LABS: CALCIUM 8.3 mg/dL (8.5-10.1); CREATININE 1.4 mg/dL (0.6-1.3); POTASSIUM 5.1 mmol/L (3.5-5.1)
[2020-09-30 09:38] LABS: % SATURATION 16 % (20-39); IRON 69 ug/dL (50-175)
--- NOTE | 2020-09-30 13:14 | NUR ---
REPORT CALLED TO FAYE SQUIRES ON 2CND. WILL TRANSPORT TO ROOM 229
--- NOTE | 2020-09-30 15:13 | NUR ---
I have reviewed the documentation by MARCUS LUNDBERG from 09/30/20 to 09/30/20 and I concur with it. GEORGINA RITTER
--- NOTE | 2020-09-30 16:52 | NUR ---
PT TRANSFERRED TO ROOM 229 AT APPROX 1345 FROM ICU, REPORT RECEIVED FROM SHAW ABDI. PT AOX4, MAINTAINING NPO STATUS AND WENT DOWN FOR EGD AT APPROX 1450, PT BACK UP ON FLOOR NOW, ATE AND IS SLEEPING. CARDIOLOGY SAW PT ON THE FLOOR. GI CLEARED PT FOR DC TOMORROW IF OKAY W/ ATTENDING. PT NOT TO HAVE ASA OR IBUPROFEN ANYMORE PER GI.
[2020-10-01 00:56] VITALS: BP 147/45
[2020-10-01 04:00] VITALS: BP 131/67
--- NOTE | 2020-10-01 05:20 | NUR ---
PT A&OX4, VSS ON ROOM AIR, PT UP WITH SBA. SR, PVC's ON TELE MONITOR. IV SALINE LOCKED. PRN PAIN MED REQUESTED AND GIVEN ORDERED. PT SLEEPING WELL. ASSESSMENTS AND HOURLY ROUNDINGS COMPLETE, WILL CONTINUE TO MONITOR.
[2020-10-01 06:34] LABS: CHOLESTEROL 125 mg/dL (<200); HDL CHOLESTEROL 59 mg/dL (>40); LDL CHOLESTEROL 51 mg/dL (<100); TC:HDL 2.1 Ratio (Not establshd); TRIGLYCERIDE 76 mg/dL (<150); TROPONIN-I LEVEL 0.12 ng/mL (<0.06); VLDL 15 mg/dL (<40)
[2020-10-01 06:35] LABS: SERUM ASSESSMENT Clear
[2020-10-01 08:00] VITALS: BP 144/53
[2020-10-01 08:23] LABS: HEMATOCRIT 28.7 % (37.0-47.0); HEMOGLOBIN 9.3 gm/dL (12.0-15.0); MCH 27.7 pg (26.0-34.0); MCHC 32.4 g/dL (28.0-37.0); MCV 85.4 fL (80.0-100.0); MPV 7.7 fl. (7.2-11.1); RBC 3.35 mil/uL (4.20-5.00); WBC 12.8 thou/uL (4.0-11.0)
[2020-10-01] MEDS ORDERED: BRILINTA90 MG PO (09:23)
--- NOTE | 2020-10-01 09:50 | CON ---
[address] [address] CONSULTATION Name: JENI GORE Room: [address] IN M.R.#: [id number] Admission: 09/29/20 Attend Phys: Jeff Patterson Discharge: Date of : 35 Report #: [id number] THIS REPORT FOR: cc: Yoana Woody Maggie M. DO Blick, David R. MD [facility] ~ DOC #: [id number] cc: Yoana Borges MD [facility] DATE OF CONSULTATION: 09/30/2020 HISTORY OF PRESENT ILLNESS: The patient is an 84-year-old single white female who I was asked to see in the hospital today after she complained of being weak. The patient has an extensive and complicated past medical history. Her first coronary stent apparently was placed in 2016. She had another stent placed in 2017. She has had several stents since that time including 2018. She now apparently has a total of 17 stents. Her last stent apparently was in 07/[address] Rivas. She is not very active because of her advanced age and uses a walker. Recently, she has felt weak and had no energy. Denied any chest pain. She does get short of breath if she exerts herself. She notes occasional palpitations. No syncope. She has edema. Today, she felt some discomfort in her jaw and arm. She denied any swelling of her arms. She finally called the ambulance and was brought here to [facility]. She was admitted for further evaluation and treatment. Cardiology consultation was requested. The patient notes she hurts all over. She denied any fever or bleeding. PAST MEDICAL AND SURGICAL HISTORY: She has had previous cataract extraction, tonsillectomy, hysterectomy and knee surgery. She has a history of hypertension and hyperlipidemia. CURRENT MEDICATIONS: Include allopurinol, aspirin, Lasix for edema, Neurontin, hydrocodone, Synthroid, metoprolol, Protonix, sucralfate and Brilinta. ALLERGIES: She has a previous intolerance to SULFA DRUGS AND LOVASTATIN. FAMILY HISTORY: Negative for heart disease. SOCIAL HISTORY: She is , lives by herself in [place], [place]. No smoking, alcohol abuse. REVIEW OF SYSTEMS: She has had no history of stroke. She wears glasses. No history of asthma, liver disease, kidney disease. She had uterine cancer in the past. She has had chronic kidney disease. No chronic skin condition. [place] [address] CONSULTATION Name: JENI GORE Room: [address]#: [id number] Admission: 09/29/20 Attend Phys: Jeff Patterson Discharge: Date of : 35 Report #: [id number] PHYSICAL EXAMINATION: GENERAL: Revealed an elderly, frail-appearing female, lying in bed. She appeared in no distress. VITAL SIGNS: She had a blood pressure of 160/70, pulse 70. She is afebrile. HEENT: She was anicteric. Conjunctivae pink. Mucosa is moist. NECK: Veins are nondistended. CHEST: Clear to auscultation. HEART: Regular rate and rhythm. ABDOMEN: Soft. EXTREMITIES: Had no edema. SKIN: Cool and dry. NEUROLOGIC: Nonfocal. DIAGNOSTIC DATA: Her ECG on admission yesterday showed a sinus rhythm, nonspecific ST-segment changes. Her workup, she had an echocardiogram done 05/2020 that showed left ventricular hypertrophy, ejection fraction 45%. Her workup yesterday, she had a portable chest x-ray that showed no acute abnormality. LABORATORY DATA: Sodium 140, creatinine 1.4. Liver function studies were normal. Troponin 0.46; BNP 13,895. Her white blood cell count was 10.3, hemoglobin yesterday was 5.1. Her COVID antigen stat test was negative. Urinalysis negative for protein. IMPRESSION AND RECOMMENDATIONS: 1. Anemia. The patient appears stable from a cardiac standpoint for endoscopy today. 2. Shoulder pain. Borderline troponin. No evidence of acute myocardial infarction. 3. Previous stent. I would continue Brilinta. Because of anemia I would stop aspirin. 4. Hypertension. The patient is on a beta-aurelio. 5. Hyperlipidemia. The patient could not tolerate statin drugs. 6. Chronic kidney disease. 7. History of uterine cancer. 8. Previous stroke noted on eye exam. Previous carotid Doppler study in 2019 showed no significant stenosis. George Borges MD [facility] [place]J/[place] [address] CONSULTATION Name: JENI GORE Room: [address] IN [facility] [place] [facility]#: [id number] Admission: 09/29/20 Attend Phys: Jeff Patterson Discharge: Date of : 35 Report #: [id number] <ELECTRONICALLY SIGNED> By: George Borges MD, FACC 10/01/20 0950 1545 0057David Eduardo Borges MD, FACVeto /nt
[2020-10-01] MEDS ORDERED: PROTONIX40 M2 PO (11:38)
[2020-10-01 13:40] VITALS: BP 144/53
[2020-10-01 14:07] VITALS: BP 133/64
--- NOTE | 2020-10-01 15:46 | NUR ---
PT. AOX4, VSS, CALL LIGHT AND PERSONAL BELONGINGS PLACED WITHIN REACH. UAL SAFELY WITH WALKER WITH STANDBY ASSIST. DC ORDERS RECEIVED, DC PACKET GIVEN AND EXPLAINED TO PT. PT. DCED WITH HOME HEALTH, PACKET FAXED.PT. LEFT UNIT BY WHEELCHAIR, PICKED UP BY DAUGHTER FRO ER ENTRANCE, PT. IN STABLE CONDITION AT TIME OF LEAVING UNIT.
--- NOTE | 2020-10-03 17:26 | CON ---
[address] [address] CONSULTATION Name: JENI GORE Room: [address] IN M.R.#: [id number] Admission: 09/29/20 Attend Phys: Jeff Patterson Discharge: 10/01/20 Date of : 35 Report #: [id number] THIS REPORT FOR: cc: Yoana Woody Maggie M. DO Namin, Farid M. MD ~ DOC #: [id number] cc: DO Dorothy Asif FNP DATE OF CONSULTATION: 09/30/2020 Please note at the time of this dictation, the patient was seen and physically examined by myself. REASON FOR CONSULTATION: Acute anemia. HISTORY OF PRESENT ILLNESS: This is an 84-year-old female who presented to the emergency room with having pain all over, particularly in her neck, her chest, shoulders and back. She states that the pain has been ongoing for the last couple of days. She has some numbness and tingling in her lower extremities. She denied any nausea, vomiting, chills, weight changes, coughing or congestion. No abdominal pain. No nausea, vomiting, diarrhea or constipation. It was noted when she was admitted to the emergency room she had a hemoglobin of 5.1 in which she has received 2 units of blood, since that time bringing her up to 8.5. She does have a longstanding history of chronic anemia in which she takes ferrous sulfate 325 three times a day. The patient denies any bright red blood or any black noted in her stools. She does state her bowels typically move once or twice a day. She had an EGD done back in 10/2019 that showed grade B esophagitis, mild Schatzki's ring in which she was dilated, large hiatal hernia and erosive gastritis at that particular time. She has had a colonoscopy done with Dr. Griffin many years ago and we will need to obtain those records. ALLERGIES: TORADOL, SULFA AND LOVASTATIN. MEDICATIONS FROM HOME: Include Ambien, ____, Nitrostat, allopurinol, gabapentin, Toprol, Plavix, Protonix, iron and levothyroxine. PAST MEDICAL HISTORY: History of uterine cancer and [facility] in 05/2020 in which she has had multiple MIs with 15 plus stent placements per patient. PAST SURGICAL HISTORY: She has had a right knee replacement and stents and a hysterectomy complete. FAMILY HISTORY: [place] [address] CONSULTATION Name: JENI GORE Room: [address]#: [id number] Admission: 09/29/20 Attend Phys: Jeff Patterson Discharge: 10/01/20 Date of : 35 Report #: [id number] SOCIAL HISTORY: She lives alone. Denies any alcohol, tobacco or illegal drug use. REVIEW OF SYSTEMS: A 12-point review of systems is essentially negative except what is mentioned in the HPI. PHYSICAL EXAMINATION: VITAL SIGNS: Temperature 36.6, pulse 76, respirations 13 and blood pressure 165/75. HEART: Regular rate and rhythm. LUNGS: A little wheezy. ABDOMEN: Soft, positive bowel sounds in all four quadrants with no masses or tenderness noted. LABORATORY DATA: Hemoglobin on admission 5.1, she got 2 units of blood, she is up to 8.5; white count is 10.3 and platelets 238. BUN on admission is 53, creatinine 1.7 and GFR is 29. LFTs: Total bilirubin 0.2, alkaline phosphatase 118, ALT 33 and AST is 28. In looking back, her BUN back in 05/2020 was only 18. BNP elevated at 1300. Chest x-ray showed no acute cardiopulmonary abnormality. IMPRESSION: 1. Acute on chronic anemia. 2. Anticoagulant therapy, Plavix and aspirin secondary to stents, last one being in 05/2020. 3. History of rheumatoid arthritis. 4. History of uterine cancer. PLAN: 1. EGD today with Dr. Ham. 2. Obtain clearance from Cardiology and Dr. Borges is made aware be a nurse. 3. Hold her Plavix and aspirin. 4. Labs, BMP, ferritin, iron studies, B12, soluble transferrin receptor. 5. Obtain records from Dr. Griffin regarding her last colonoscopy YUNIER. 6. Further recommendations to be made after the procedure has been performed. Thank you for allowing us to participate in this patient's care. Please do not hesitate to call with any questions regarding this consult. MD MELISSA Brice/BRUCE/LOVE [address] [address] CONSULTATION Name: JENI GORE Room: [address] IN M.R.#: [id number] Admission: 09/29/20 Attend Phys: Jeff Patterson Discharge: 10/01/20 Date of : 35 Report #: [id number] <ELECTRONICALLY SIGNED> By: Makayla Ham MD 10/03/20 1726 0808 2102Makayla Ham MD /nt
--- NOTE | 2020-10-04 18:06 | PATH ---
[address] [address] PATHOLOGY RPT PROCEDURE Name: JENI GORE Room: [address] IN M.R.#: [id number] Admission: 09/29/20 Date of : 35 Discharge: 10/01/20 Report #: [id number] Path Case #: [id number] [facility] Accession Number: [id number] . 01 Material submitted: . PART A: duodenum - DUODENAL EROSIONS BIOPSY PART B: gastrointestinal site - GASTRIC BIOPSY FOR GASTRIC EROSION . 01 Clinical history: . EGD IN OR . 02 Diagnosis: A. Duodenal erosions biopsy: - Moderate nonspecific active duodenitis with prominence of Emelia's glands suggesting hyperplasia, negative for granulomas, viral inclusions and dysplasia/adenomatous change. . B. Gastric biopsy: - Nonspecific severe active gastritis with erosion, negative for Helicobacter pylori organisms, granulomas and dysplasia. (MEHRAN:bakari; 10/04/2020) . Special stain on B: H. pylori immuno QMS 10/04/2020 1457 Local . 02 Electronically signed: . Juan Mendoza MD, Pathologist NPI- [id number] . 01 Gross description: . A. The specimen is received in formalin, labeled "Jeni Gore", "duodenal erosions biopsy". Received are 2 segments of pale thompson soft tissue measuring 0.1 and 0.3 cm. The specimen is entirely submitted in cassette A1. . B. The specimen is received in formalin, labeled "Jeni Gore", "gastric biopsy for gastric erosion". Received are multiple segments of pale thompson soft tissue ranging in size from 0.1 cm to 0.3 cm. The specimen is entirely submitted in cassette B1.([facility]; 10/02/2020) CURTIS/EARLENE 10/02/2020 1851 Local . 02 Pathologist provided ICD-10: K29.80, K29.60 . 02 CPT . 272525, 999209, A23028 Specimen Comment: A courtesy copy of this report has been sent to [phone] Specimen Comment: [place] [address] PATHOLOGY RPT PROCEDURE Name: JENI GORE Room: [address] DIS IN M.R.#: [id number] Admission: 09/29/20 Date of : 35 Discharge: 10/01/20 Report #: [id number] Path Case #: [id number] Performed at: 01 [facility] [place] [address], [place], [place] [id number] MD Emeterio Mcginnis MD Phone: [phone] Performed at: 02 [facility] [place] [facility] Myla Greco, HERSON Sandhu [id number] MD Juan Mendoza MD Phone: [phone]
== END 2020-10-01 15:00 | disposition home health service (06) | DRG 378 ==
LOC: M.ERS 13:35 → M.TBA-ER 16:33 → M.ICU 16:33 → M.2W 09-30 13:44
PROVIDERS: Internal Medicine Cardiovascular Disease; Internal Medicine Gastroenterology; Nurse Practitioner Adult Health; Physician Assistant; ADMIT Internal Medicine; ATTEND Internal Medicine
PROC: 30233N1 Transfusion of Nonautologous Red Blood Cells into Peripheral Vein, Percutaneous Approach (ICD-10-PCS; 2020-09-29)
PROC: 0DB98ZX Excision of Duodenum, Via Natural or Artificial Opening Endoscopic, Diagnostic (ICD-10-PCS; principal; 2020-09-30)
PROC: 0DB68ZX Excision of Stomach, Via Natural or Artificial Opening Endoscopic, Diagnostic (ICD-10-PCS; principal; 2020-09-30)
DX: K27.4 Chronic or unspecified peptic ulcer, site unspecified, with hemorrhage (principal); D62 Acute posthemorrhagic anemia; N18.4 Chronic kidney disease, stage 4 (severe); Q39.6 Congenital diverticulum of esophagus; M06.9 Rheumatoid arthritis, unspecified; I12.9 Hypertensive chronic kidney disease with stage 1 through stage 4 chronic kidney disease, or unspecified chronic kidney disease; M10.9 Gout, unspecified; K31.9 Disease of stomach and duodenum, unspecified; K44.9 Diaphragmatic hernia without obstruction or gangrene; M25.512 Pain in left shoulder; M25.511 Pain in right shoulder; E78.5 Hyperlipidemia, unspecified; K31.89 Other diseases of stomach and duodenum; K29.60 Other gastritis without bleeding; I25.10 Atherosclerotic heart disease of native coronary artery without angina pectoris; Z96.651 Presence of right artificial knee joint; Z20.822 Contact with and (suspected) exposure to COVID-19; Z90.710 Acquired absence of both cervix and uterus; I25.2 Old myocardial infarction; Z85.42 Personal history of malignant neoplasm of other parts of uterus; Z79.01 Long term (current) use of anticoagulants; Z79.899 Other long term (current) drug therapy; Z88.8 Allergy status to other drugs, medicaments and biological substances; Z88.2 Allergy status to sulfonamides; Z95.5 Presence of coronary angioplasty implant and graft; Z98.49 Cataract extraction status, unspecified eye

== ENCOUNTER 2020-11-15 21:22 | Inpatient (IN) | payer MEDICARE, OTHER ==
[~2020-11-15] VITALS: Ht 147.3 cm; Wt 71.2 kg
[~2020-11-15 21:22] MED LIST changes: +PROTONIX40 M2 PO
[2020-11-15 21:27] VITALS: BP 165/79
[2020-11-15 23:06] LABS: ABSOLUTE BASOPHILS 0.1 thou/uL (0.0-0.2); ABSOLUTE EOSINOPHILS 0.1 thou/uL (0.0-0.7); ABSOLUTE LYMPHOCYTES 1.1 thou/uL (0.8-5.3); ABSOLUTE MONOCYTES 0.5 thou/uL (0.0-1.2); ABSOLUTE NEUTROPHILS 8.4 thou/uL (1.6-8.1); HEMOGLOBIN 7.7 gm/dL (12.0-15.0); LYMPHOCYTES 10.7 %; MCH 25.8 pg (26.0-34.0); MCHC 30.6 g/dL (28.0-37.0); MCV 84.2 fL (80.0-100.0); MONOCYTES 4.8 %; MPV 7.3 fl. (7.2-11.1); NUCLEATED RBCS 0 /100WBC; PLATELET COUNT* 290 thou/uL (150-400); POLYS 82.5 %; RBC 2.97 mil/uL (4.20-5.00); RDW-CV 20.7 % (10.5-14.5); WBC 10.2 thou/uL (4.0-11.0)
[2020-11-15 23:28] LABS: CALCIUM 8.9 mg/dL (8.5-10.1); CREATININE 1.6 mg/dL (0.6-1.3); POTASSIUM 4.4 mmol/L (3.5-5.1)
[2020-11-15 23:38] LABS: ALBUMIN 3.7 g/dL (3.4-5.0); TOTAL BILIRUBIN 0.2 mg/dL (<0.1-1.0)
[2020-11-16] VITALS (15 sets, daily range): BP systolic 103–164; BP diastolic 46–76
[2020-11-16 03:15] LABS: ANISOCYTOSIS 2+; PLATELET ESTIMATE ADEQUATE
--- NOTE | 2020-11-16 09:25 | EKG ---
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: [place] : 1935 Requested By: Katie Rey Order Number: [id number] MD: George Borges Measurements Intervals [place] Rate: 95 P: 95 SC: 248 QRS: -17 QRSD: 72 T: 173 QT: 320 QTc: 403 Interpretive Statements Sinus rhythm Prolonged SC interval Inferior infarct, old Lateral leads are also involved Compared to ECG 09/29/2020 13:47:15 First degree AV block now present Myocardial infarct finding still present Electronically Signed On 11-16-2020 9:25:19 CDT by George Borges [email or web address] <ELECTRONICALLY SIGNED> By: George Borges MD, FACC 11/16/20924 29 29 George Borges MD, FAC /EPI
--- NOTE | 2020-11-16 14:00 | NUR ---
PT TAKEN TO MANAGER OF SOFTWARE, BY CATH TEAM ON PURSE SEIN[employer]. FAMILY FOLLOWED WITH PT'S BELONGINGS TO WAITING ROOM.
--- NOTE | 2020-11-16 15:50 | EKG ---
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: KYLIE : 1935 Requested By: George Borges Order Number: [id number] Reading MD: George Borges Measurements Intervals [place] Rate: 96 P: 92 HI: 227 QRS: 16 QRSD: 74 T: 109 QT: 343 QTc: 434 Interpretive Statements Sinus rhythm Atrial premature complex Prolonged HI interval Borderline low voltage, extremity leads Repol abnrm suggests ischemia, anterolateral Compared to ECG 11/15/2020 21:30:51 Atrial premature complex(es) now present Electronically Signed On 11-16-2020 15:49:59 CDT by George Borges [email or web address] <ELECTRONICALLY SIGNED> By: George Borges MD, FAC 11/16/20 1549 1535 1535 George Borges MD, FAC /EPI
--- NOTE | 2020-11-16 16:16 | CARD ---
[address] [address] CARDIAC CATH REPORT Name: JENI GORE Room: [address] ADM IN .R.#: [id number] Admission: 11/16/20 Attend Phys: Cristian Astorga MD Discharge: Date of : 35 Report #: [id number] THIS REPORT FOR: cc: Yoana Woody Maggie M. DO Blick, David R. MD [facility] ~ APPROVED REPORT Study performed: 11/16/2020 13:32:48 Patient Details Patient Status: ED Room #: The patient is a 85 year-old female Event Personnel Ronald Underwood RTR Monitor, Nan Katz RTR ScrubKaterina David Quill Picking Machine Operator, Sarah Snell RN indirect sales exec Performed Left Heart Cath w/or w/o Coronaries [id number] [facility] ROSARIO Place w/wo Plasty Single CIRC [id number] Hemostasis w/ Mynx Indication Abnormal ECG, Non-STEMI , Chest pain Risk Factors Arterial Hypertension, Coronary Artery Disease Previous Procedures/Diagnoses Previous PCI, Previous NC Admission/Lab Medications/Medications given during procedure Glycoprotein IllbIlla Inhibitors, Heparin Unfract., Midazolam (Versed) IV 1 mg, Lidocaine Subcut 20 ml, Heparin IV 3000 units, Aggrastat Unknown 10 ml, Heparin IV 1000 units, Fentanyl IV 25 mcg, Plavix PO 600 mg Procedure Narrative The patient was brought electively to the Cardiac Catheterization Laboratory and was prepped and draped in a sterile manner. The right femoral was infiltrated with 2% Lidocaine subcutaneous anesthesia. IV conscious sedation was used throughout procedure with appropriate monitoring and was performed in the [place] [id number] CARDIAC CATH REPORT Name: JENI GORE Room: [address] IN [facility]#: [id number] Admission: 11/16/20 Attend Phys: Cristian Astorga MD Discharge: Date of : 35 Report #: [id number] who was an independent trained observer other than the physician performing the procedure. A [place] 6 FR sheath was inserted into the right femoral artery. Coronary angiography was performed using coronary diagnostic catheters. The right coronary system was accessed and visualized with a Diagnostic JR4 6Fr catheter. The left coronary system was accessed and visualized with a Diagnostic JL4 6Fr catheter. The left ventricle was accessed and visualized with a Diagnostic JR4 6Fr catheter. Left ventricular/Aortic Valve gradient assessed via catheter pullback. Closure device was deployed with a 6 Fr Mynx. The patient tolerated the procedure well and there were no complications associated with the procedure. There was no hematoma. Intraoperative Conscious Sedation Sedation start time: 1406 Case end Time: 1501 Fentanyl 25 mcg Versed 2 mg Fluoro Time: 8.1 minutes Dose: DAP 11018 cGycm2 1057.40 mGy Contrast Type and Amount: Visipaque 160 ml Coronary Angiography The patient's coronary anatomy is co- dominant. Diagnostic Cath Left Main 0% stenosis LAD Stents noted in the proximal, mid, and distal LAD. Mid stent had a 40% restenosis. Apical stent appeared chronically occluded. Diagonal 1 Medium sized vessel with a proximal stent that had 0% restenosis. Circumflex Proximal and mid stent with a 90% instent restenosis just distal to the takeoff of the second marginal branch. 80% stenosis in the distal circumflex. OM2 large vessel with a proximal stent with a 50% restenosis. Beyond the stent, there was a 60% stenosis in the mid marginal branch. Right Coronary Totally occluded in its mid portion with retrograde filling from the left coronary artery. Left Ventriculography Left Ventriculography was not performed. Hemodynamics The aortic pressure is 143/63 mmHg with a mean of 99 [place] [id number] CARDIAC CATH REPORT Name: JENI GORE Room: [address] IN [facility]#: [id number] Admission: 11/16/20 Attend Phys: Cristian Astorga MD Discharge: Date of : 35 Report #: [id number] ventricular pressure is 161/10 mmHg with a mean of mmHg. The left ventricular end diastolic pressure is 20 mmHg. There was no gradient across the aortic valve upon pullback. Pullback from the left ventricle to the aorta revealed no gradient across the aortic valve. PCI Technique Lesion Anticoagulation was achieved with Heparin. bolus of iv aggrastat given Percutaneous coronary intervention was performed on the mid circumflex artery segment. The lesion stenosis prior to intervention was 90% with DAGOBERTO 3 flow. A 6FR XB 3.5 100CM Guide Catheter was used to engage the Left main ostium. A BMW 190cm Interventional Guidewire was used to cross the lesion. BALLOON DILATION A Balloon catheter Euphora SC 2.5x12 was inserted and inflated up to 12.00atm for 19seconds. Repeat angiography revealed the following post-dilatation results: 30% stenosis. Additional Inflation: 14.00atm for 17seconds. Additional Inflation: 16.00atm for 6seconds. STENT DEPLOYMENT A drug-eluting stent Xience Carissa 2.76H44nj was inserted and inflated up to 14.00atm for 17seconds. Repeat angiography revealed the following post-stent deployment results: 0% stenosis. Additional Inflation: 16.00atm for 6seconds. Additional Inflation: 20.00atm for 10seconds. Final angiography reveals 0 % stenosis with DAGOBERTO 3 flow. PCI Technique Lesion 2 Percutaneous Coronary Intervention was performed on the distal circumflex artery segment. Percutaneous coronary intervention was performed on the distal circumflex artery segment. The lesion stenosis prior to intervention was 80% with DAGOBERTO 3 flow. A 6FR XB 3.5 100CM Guide Catheter was used to engage the Left main ostium. A BMW 190cm Interventional Guidewire was used to cross the lesion. Balloon Dilation A Balloon catheter Euphora SC 2.5x12 was inserted and inflated up to 5.00atm for 13seconds. Repeat angiography revealed the following post-dilatation results: 30% stenosis. Additional Inflation: 10.00atm for 14seconds. Stent Deployment A drug-eluting stent Xience Carissa 2.5X23mm [place] [id number] CARDIAC CATH REPORT Name: JENI GORE Room: [facility] IN M.R.#: [id number] Admission: 11/16/20 Attend Phys: Cristian Astorga MD Discharge: Date of : 35 Report #: [id number] up to 8.00atm for 17seconds. Repeat angiography revealed the following post-stent deployment results: 0% stenosis. Additional Inflation: 12.00atm for 17seconds. Additional Inflation: 12.00atm for 10seconds. Advancement of the stent into the distal cicumflex artery required the use of a BMW meenu wire into the distal circumflex because of the mid circumflex stent just placed and the acute takeoff of the circumflex artery from the left main artery. Final angiography reveals 0 % stenosis with DAGOBERTO 3 flow. Conclusion 1. No restenosis noted of the stents in the proximal, mid LAD, and first diagonal branch, although the apical stent in the LAD appeared chronically occluded. 2. No restenosis noted of the stent in the second margainal branch of the circumflex. 3. Stents in the proximal and mid circumflex had a 90% restenosis noted just distal to the takeoff of the 2nd marginal artery. An 80% stenosis was noted in the distal circumflex. 4. RCA was chronically occluded and filled retrograde from collaterals from the left coronary artery. 5. successful placement of drug eluting stents in the mid and distal circumflex artery. Recommendations Cardiac Rehabilitation Referral Aggressive Medical Therapy Medications Administered Clopidogrel <ELECTRONICALLY SIGNED> By: George Borges MD, [facility] 11/16/20 1616 161 [id number] Borges MD, FACC /INF
--- NOTE | 2020-11-16 20:00 | NUR ---
RECEIVED REPORT AND ASSUMED CARE OF PT, ASSESSMENT COMPLETDED. RT GROIN DRSG DRY AND INTACT, AREA WITH SOFT RAISED, NO BRUISING OR DRAINAGE. HAVING PAIN INTO AREA DUE TO LAYING STILL. TELEMETRY ON SHOWING SR. WILL CONT TO MONITOR AND ASSIST NEEDED.
[2020-11-17] VITALS (7 sets, daily range): BP systolic 94–138; BP diastolic 42–85
--- NOTE | 2020-11-17 07:34 | NUR ---
SLEPT FAIR. RT GROIN HAVING A SOFT HEMATOMA WITHOUT BRUISING OR DRAINAGE. C/O GENERALIZED AND RT GROIN DISCOMFORT, PO MED GIVEN AND EFFECTIVE. ASSISTED TO BR, VOIDING WELL. TELEMETRY CONT TO SHOW SR. HS GOALS OF REST AND SAFETY ACHIEVED. HOURLY ROUNDING OBSERVED.
[2020-11-17 07:56] LABS: MCH 25.8 pg (26.0-34.0); MCHC 31.2 g/dL (28.0-37.0); MCV 82.5 fL (80.0-100.0); MPV 7.3 fl. (7.2-11.1); RBC 2.25 mil/uL (4.20-5.00); RDW-CV 21.4 % (10.5-14.5); WBC 8.4 thou/uL (4.0-11.0)
[2020-11-17 08:02] LABS: CALCIUM 8.2 mg/dL (8.5-10.1); CREATININE 1.1 mg/dL (0.6-1.3); POTASSIUM 3.7 mmol/L (3.5-5.1)
[2020-11-17 08:11] LABS: HEMOGLOBIN 5.8 gm/dL (12.0-15.0)
[2020-11-17 08:12] LABS: HEMATOCRIT 18.6 % (37.0-47.0)
[2020-11-17 08:38] LABS: CHOLESTEROL 121 mg/dL (<200); HDL CHOLESTEROL 51 mg/dL (>40); LDL CHOLESTEROL 47 mg/dL (<100); TC:HDL 2.4 Ratio (Not establshd); TRIGLYCERIDE 115 mg/dL (<150); VLDL 23 mg/dL (<40)
[2020-11-17 08:40] LABS: TROPONIN-I LEVEL 6.19 ng/mL (<0.06)
[2020-11-17 08:42] LABS: SERUM ASSESSMENT Clear
--- NOTE | 2020-11-17 09:52 | EKG ---
[place] [address] ELECTROCARDIOGRAM REPORT Name: JENI GORE Room: [address] ADM IN [facility].#: [id number] Admission: 11/16/20 Attend Phys: Cristian Astorga, Discharge: Date of : 35 Date of Service: 11/17/20 0838 Report #: [id number] THIS REPORT FOR: //name// [facility] Test Date: 2020-11-17 Test Time: 08:38:37 Pat Name: JENI GORE Department: Room: [facility] Gender: F Food Critic: : 1935 Requested By: George Borges Order Number: [id number] Reading MD: George Borges Measurements Intervals [place] Rate: 98 P: 61 VA: 214 QRS: -12 QRSD: 76 T: 170 QT: 303 QTc: 387 Interpretive Statements Sinus rhythm Borderline prolonged VA interval Inferior infarct, old Repol abnrm suggests ischemia, diffuse leads Compared to ECG 11/16/2020 15:35:14 Atrial premature complex(es) no longer present Possible ischemia still present Electronically Signed On 11-17-2020 9:52:10 CDT by George Borges [email or web address] <ELECTRONICALLY SIGNED> By: George Borges MD, FAC 11/17/20 0952 7 0838 George Borges MD, FAC /EPI
--- NOTE | 2020-11-17 10:34 | NUR ---
PT HAD EKG TODAY. PT LIVES HOME ALONE. TWO OF HER CHILDREN LIVE CLOSE BY. PT OTHER DAUGHTER WHO LIVES OUT OF TOWN WAS AT BEDSIDE. PT IS CURRENT WITH LIDIA MURRELL, BUT INDICATED, SHE DOEST WANT TO COTN W/HANDY SHE DOESNT NEED IT ANYMORE, "I DONT WANT TO WASTE GOV'T MONEY." PT IS INDEPENDENT WITH CARE. PT HAS WALER/CANE. PT HAS HX AT [facility]. PT INDICATED, " I HAVE REALLY GREAT NEIGHBORS." CM TO CONT TO FOLLOW. THERE ARE NO ANTICIPATED NEEDS AT THIS TIME. CM NOTIFIED CELSO Kaur/LIDIA OF PT ADMISSION.
--- NOTE | 2020-11-17 11:32 | 2DMMODE ---
[place] [address] 2 D/M-MODE ECHOCARDIOGRAM Name: JENI GORE Room: [address] IN .R.#: [id number] Admission: 11/16/20 Attend Phys: Cristian Astorga, Discharge: Date of : 35 Date of Service: 11/17/20 1131 Report #: [id number] THIS REPORT FOR: cc: Yoana Woody Maggie M. DO Liston, Michael J. MD [facility] ~ APPROVED REPORT Study performed: 11/17/2020 10:38:13 EXAM: Comprehensive 2D, Doppler, and color-flow Echocardiogram Patient Location: In-Patient Room #: [facility] Status: routine BSA: 1.64 HR: 94 bpm BP: 124/50 mmHg Rhythm: NSR Other Information Study Quality: Good Indications Acute CO 2D Dimensions IVSd: 13.09 (7-11mm) LVOT Diam: 18.76 (18-24mm) LVDd: 38.47 mm PWd: 10.51 (7-11mm) Ascending Ao: 27.04 (22-36mm) LVDs: 27.67 (25-40mm) Aortic Root: 24.47 mm Volumes Left Atrial Volume (Systole) LA ESV Index: 35.40 mL/m2 Aortic Valve AoV Peak Perico.: 1.42 m/s AO Peak Gr.: 8.04 mmHg LVOT Max P.89 mmHg AO Mean Gr.: 4.61 mmHg LVOT Mean P.03 mmHg LVOT Max V: 0.69 m/s AO V2 VTI: 26.54 cm LVOT Mean V: 0.47 m/s NAMAN (VTI): 1.58 cm2 LVOT V1 VTI: 15.13 [place] [address] 2 D/M-MODE ECHOCARDIOGRAM Name: JENI GORE Room: [address] IN ..#: [id number] Admission: 11/16/20 Attend Phys: Cristian Astorga, Discharge: Date of : 35 Date of Service: 11/17/20 1131 Report #: [id number] Mitral Valve E/A Ratio: 0.81 MV Decel. Time: 143.50 ms MV E Max Perico.: 1.01 m/s MV PHT: 41.62 ms MVA (PHT): 5.29 cm2 TDI E/Lateral E': 12.63 Lateral E' Perico.: 0.08 m/s Pulmonary Valve PV Peak Perico.: 1.00 m/s PV Peak Gr.: 3.99 mmHg Tricuspid Valve RAP Estimate: 5.00 mmHg TR Peak Gr.: 35.72 mmHg RVSP: 40.00 mmHg PA Pressure: 40.00 mmHg Left Ventricle The left ventricle is normal size. There is severe hypokinesis to akinesis in the mid to distal anterior anteroseptal and apical wall. Mild concentric left ventricular hypertrophy. Left ventricular systolic function is mild to moderately decreased. LVEF is 40%. Grade I - abnormal relaxation pattern. Right Ventricle The right ventricle is normal size. The right ventricular systolic function is normal. Atria Left atrium is borderline dilated. The right atrium size is normal. Aortic Valve Mild aortic valve sclerosis. No aortic regurgitation is present. There is no aortic valvular stenosis. Mitral Valve The mitral valve is normal in structure. Mild mitral regurgitation. No evidence of mitral valve stenosis. Tricuspid Valve The tricuspid valve is normal in structure. Trace tricuspid regurgitation. Mild to Moderate pulmonary hypertension. The RVSP is 40-[place] [address] 2 D/M-MODE ECHOCARDIOGRAM Name: JENI GORE Room: [address] IN [facility]#: [id number] Admission: 11/16/20 Attend Phys: Cristian Astorga, Discharge: Date of : 35 Date of Service: 11/17/20 1131 Report #: [id number] Pulmonic Valve The pulmonary valve is normal in structure. There is no pulmonic valvular regurgitation. Great Vessels The aortic root is normal in size. IVC is normal in size and collapses >50% with inspiration. Pericardium There is no pericardial effusion. <Conclusion> The left ventricle is normal size. Mild concentric left ventricular hypertrophy. Left ventricular systolic function is mild to moderately decreased. LVEF is 40%. Grade I - abnormal relaxation pattern. Left atrium is borderline dilated. Mild aortic valve sclerosis. Mild mitral regurgitation. Trace tricuspid regurgitation. Mild to Moderate pulmonary hypertension. The RVSP is 40-45 mmHg. IVC is normal in size and collapses >50% with inspiration. <ELECTRONICALLY SIGNED> By: Oleg Cardona MD, FACC 11/17/20 1131 1131 113 Oleg Cardona MD, FACC /INF
--- NOTE | 2020-11-17 12:39 | CON ---
[address] [address] CONSULTATION Name: JENI GORE Room: [address] IN M.R.#: [id number] Admission: 11/16/20 Attend Phys: Cristian Astorga MD Discharge: Date of : 35 Report #: [id number] THIS REPORT FOR: cc: Yoana Woody Maggie M. DO Blick, David R. MD [facility] ~ cc: Yoana Woody DO DATE OF CONSULTATION: 11/16/2020 CARDIOLOGY CONSULTATION HISTORY OF PRESENT ILLNESS: The patient is an 85-year-old single white female who I was asked to see in the emergency room after she complained of chest pain. The patient has a long and complicated past medical history. Her first coronary stent was placed in 2015. She has had coronary stents placed in 2017, 2018 and her last stent was in 07/[address] Rivas. She is not very active because of advanced age and uses a walker. She was admitted here to [facility] in September with shortness of breath and fatigue. She was found to be anemic. She was on Brilinta and aspirin. She underwent a GI evaluation and was found to have evidence of peptic ulcer disease. She was eventually discharged and sent home. She has done well since that time. Recently, she has had recurrent aching in her chest and jaw. It is not necessarily related to exertion or meals. It makes her nauseated. She has actually vomited. She has taken some nitroglycerin. Yesterday after a bad episode, her family brought her to the emergency room, and she was admitted for further evaluation and treatment. She denied the pain being related to food. She has had no fever or cough. She has chronic edema. Denies any palpitations or syncope. She denies any trauma to her chest or rash. PAST MEDICAL HISTORY: She has had previous hysterectomy for uterine cancer, knee surgery, hypertension, hyperlipidemia. She has a history of gout. CURRENT MEDICATIONS: Consists of Synthroid, iron pills, Protonix, metoprolol, Neurontin, Brilinta. ALLERGIES: SHE HAS PREVIOUS INTOLERANCE TO STATIN DRUGS AND SULFA DRUGS. FAMILY HISTORY: Positive for heart disease. SOCIAL HISTORY: She is , lives by herself in [place], [place]. No smoking, no alcohol abuse. REVIEW OF SYSTEMS: She apparently was told by an eye doctor in the past that she has had previous evidence of a stroke on eye exam. [place] [address] CONSULTATION Name: JENI GORE Room: [address]#: [id number] Admission: 11/16/20 Attend Phys: Cristian Astorga MD Discharge: Date of : 35 Report #: [id number] She has chronic kidney disease. No psychiatric illness. No chronic skin condition. PHYSICAL EXAMINATION: GENERAL: Revealed an elderly, frail-appearing female, lying in bed. She appeared in no distress. VITAL SIGNS: She had a blood pressure of 140/60, pulse 70. She is afebrile. HEENT: She was anicteric. Conjunctivae are pale. Mucous membranes moist. NECK: Veins do not appear distended. No carotid bruits. CHEST: Clear to auscultation. CARDIAC: Regular rate and rhythm without murmur. ABDOMEN: Soft. EXTREMITIES: Had trace edema. SKIN: Cool and dry. NEUROLOGIC: Nonfocal. Dorsalis pedis pulse 1+ bilaterally. LABORATORY DATA: ECG showed sinus rhythm, first degree AV block with poor R-wave progression, nonspecific ST and T-wave changes were noted. Her workup in the emergency room last night, she had a portable chest x-ray that showed chronic interstitial infiltrates, possible pneumonitis. She actually had a CT scan of the head without contrast that showed volume loss, no hemorrhage, this was done in July. Her lab work, sodium 143, creatinine 1.6, has been as high as 2.0 in May. Her troponin last night was 2.78. In September, cholesterol 125, triglycerides 76, HDL 59, LDL 151. TSH 3.2. White blood cell count 10.2. Her hemoglobin 7.7, it was actually 6.2 in May. Her COVID antigen stat test was negative. IMPRESSION AND RECOMMENDATIONS: 1. Non-ST elevation myocardial infarction. Consider repeat cardiac catheterization. 2. Anemia. Consider transfusion. Previous GI workup showed evidence of hiatal hernia and esophagitis. 3. Hypertension. The patient is on a beta aurelio. 4. Chronic kidney disease. 5. History of gout. <ELECTRONICALLY SIGNED> By: George Borges MD, FACC 11/17/20 1239 1207 1235George Borges MD, FACC /nt
[2020-11-17 17:28] LABS: HEMATOCRIT 22.5 % (37.0-47.0); HEMOGLOBIN 7.1 gm/dL (12.0-15.0)
--- NOTE | 2020-11-17 19:01 | NUR ---
PT IS AO X4 AND VERY PLEASANT. SHE HAD A CATH ON 11/16 WITH 2 STENTS PLACED. SHE WAS HOPING TO BE DISCHARGED TODAY BUT THIS AM HER HGB WAS 5.8 SO 1 UNIT PRBCs WERE TRANSFUSED RAISING HGB TO 7.1. PT WAS ASYMPTOMATIC AND ON RA SO 2ND UNIT WAS NOT TRANSFUSED PER DR VICENTE. PT HAS RT GOING SITE WITH SMALL HEMATOMA, SCANT DRAINAGE ON HER BANDAGE AND NO BRUISING. PT IS TAKING FOOD AND FLUIDS PO WELL. SHE AMBULATED TO THE TOILET WITH STANDBY ASSIST. AM LABS ORDERED TO ASSESS HGB IN AM. CALL LIGHT IN REACH, BED ALARM ON FOR SAFETY
[2020-11-17 22:11] LABS: HEMATOCRIT 21.5 % (37.0-47.0)
[2020-11-17 22:17] LABS: HEMOGLOBIN 6.9 gm/dL (12.0-15.0)
[2020-11-18] VITALS (7 sets, daily range): BP systolic 86–138; BP diastolic 46–69
[2020-11-18 03:09] LABS: HEMATOCRIT 25.9 % (37.0-47.0); HEMOGLOBIN 8.7 gm/dL (12.0-15.0); MCH 28.2 pg (26.0-34.0); MCHC 33.4 g/dL (28.0-37.0); MCV 84.4 fL (80.0-100.0); MPV 7.2 fl. (7.2-11.1); RBC 3.07 mil/uL (4.20-5.00); WBC 10.3 thou/uL (4.0-11.0)
[2020-11-18 03:32] LABS: CALCIUM 7.5 mg/dL (8.5-10.1); CREATININE 1.2 mg/dL (0.6-1.3); POTASSIUM 4.3 mmol/L (3.5-5.1)
--- NOTE | 2020-11-18 05:12 | NUR ---
PT HAS ADULT KIDS LEAVING BACK HOME OUT OF STATE AND SHE IS VERY WORRIED ABOUT BEING ABLE TO DISCHARGE TODAY TO SEE THEM. HER HGB WAS 6.9, TRANSFUSED 1 UNIT PRBC, NOW IT IS 8.7 AT 0300. SHE IS ALERT AND ORIENTED, ROOM AIR, UP STANDBY ASSIST. REPORTS NO PAIN, NAUSEA, DISCOMFORT. GROIN SITE HAS NO ACTIVE BLEEDING. THE DRESSING HAS SOME DRY BLOOD ON IT. CENTRAL LINE DRESSING IS INTACT BUT DOES HAVE SOME DRIED BLOOD ON IT WELL. BOTH DRESSING ARE INTACT. SHE HAS RECEIVED ALL MEDS SCHEDULED, VSS. VERY PLEASANT.
[2020-11-18] MEDS ORDERED: PLAVIX 75 MG TA75 M1 PO (14:49)
[2020-11-18] MEDS ORDERED: BAYER CHEWABLE81 MG PO (14:49)
--- NOTE | 2020-11-18 14:57 | NUR ---
jose swain/[facility] indicated the will resume care with pt. cm faxed orders to [phone]. pt and family informed hh will contact pt to arrange visits.
--- NOTE | 2020-11-18 15:51 | NUR ---
ASSUMED CARE OF PT AT 0730. PT A&0X4, COMPLAINED OF HEADACHE-TREATED WITH PRN TYLENOL WITH RELIEF.TRACING SR ON THE METER CHANGES RECORDS CLERK. ON RA SAT UPPER 90'S. DENIES ANY SHORTNESS OF BREATH. PT UP WITH SBA TO BATHROOM. RIGHT GROIN CATH SITE C/D/I. CARDIOLOGY SEEN PT-CLEARED FOR DISCHARGE. DISCHARGE ORDERS RECEIVED FROM DR KWOK. DISCHARGE INSTRUCTIONS, CARE NOTES, E SCRIPTS AND FOLLOW UP APPTS GIVEN TO PT. PT COMMUNICATES UNDERSTANDING OF DISCHARGE TEACHING. CENTRAL LINE REMOVED WITHOUT COMPLICATIONS. METER CHANGES RECORDS CLERK REMOVED.PT DISCHARGED WITH ALL BELONGINGS AND PAPERWORK VIA WHEELCHAIR WITH NURSING STAFF TO FAMILY OWN PERSONAL VEHICLE.
--- NOTE | 2020-11-19 08:44 | NUR ---
PLEASE NOTE PT WAS DISCHARGED FROM HOSPITAL BEFORE P.T. EVAL AND TREAT COULD BE INITIATED.
== END 2020-11-18 15:54 | disposition home or self-care (01) | DRG 246 ==
LOC: M.ERS 21:22 → M.TBA-ER 11-16 04:13 → M.2W 11-16 04:13 → M.TBA-ER 11-16 07:28 → M.2W 11-16 15:48
PROVIDERS: Family Medicine; Internal Medicine Cardiovascular Disease; Personal Emergency Response Attendant; ADMIT Internal Medicine; ATTEND Internal Medicine
PROC: B548ZZA Ultrasonography of Superior Vena Cava, Guidance (ICD-10-PCS; principal; 2020-11-16)
PROC: B211YZZ Fluoroscopy of Multiple Coronary Arteries using Other Contrast (ICD-10-PCS; principal; 2020-11-16)
PROC: 027035Z Dilation of Coronary Artery, One Artery with Two Drug-eluting Intraluminal Devices, Percutaneous Approach (ICD-10-PCS; principal; 2020-11-16)
PROC: 02HV33Z Insertion of Infusion Device into Superior Vena Cava, Percutaneous Approach (ICD-10-PCS; principal; 2020-11-16)
PROC: 4A023N7 Measurement of Cardiac Sampling and Pressure, Left Heart, Percutaneous Approach (ICD-10-PCS; principal; 2020-11-16)
PROC: 30233N1 Transfusion of Nonautologous Red Blood Cells into Peripheral Vein, Percutaneous Approach (ICD-10-PCS; 2020-11-17)
DX: T82.855A Stenosis of coronary artery stent, initial encounter (principal); I21.4 Non-ST elevation (NSTEMI) myocardial infarction; N17.0 Acute kidney failure with tubular necrosis; I50.41 Acute combined systolic (congestive) and diastolic (congestive) heart failure; J15.9 Unspecified bacterial pneumonia; N18.4 Chronic kidney disease, stage 4 (severe); I13.0 Hypertensive heart and chronic kidney disease with heart failure and stage 1 through stage 4 chronic kidney disease, or unspecified chronic kidney disease; M06.9 Rheumatoid arthritis, unspecified; D64.9 Anemia, unspecified; K21.9 Gastro-esophageal reflux disease without esophagitis; Y83.8 Other surgical procedures as the cause of abnormal reaction of the patient, or of later complication, without mention of misadventure at the time of the procedure; Z96.651 Presence of right artificial knee joint; G62.9 Polyneuropathy, unspecified; M10.9 Gout, unspecified; N18.9 Chronic kidney disease, unspecified; K27.9 Peptic ulcer, site unspecified, unspecified as acute or chronic, without hemorrhage or perforation; I25.119 Atherosclerotic heart disease of native coronary artery with unspecified angina pectoris; Y92.89 Other specified places as the place of occurrence of the external cause; I25.2 Old myocardial infarction; Z85.42 Personal history of malignant neoplasm of other parts of uterus; Z90.710 Acquired absence of both cervix and uterus; Z90.722 Acquired absence of ovaries, bilateral; Z88.2 Allergy status to sulfonamides; Z88.8 Allergy status to other drugs, medicaments and biological substances; Z82.49 Family history of ischemic heart disease and other diseases of the circulatory system

== ENCOUNTER 2021-02-09 12:42 | Inpatient (IN) | payer MEDICARE, OTHER ==
[~2021-02-09] VITALS: Ht 147.3 cm; Wt 69.4 kg
--- NOTE | ~2021-02-09 | CON ---
[address] [address] CONSULTATION Name: JENI GORE Room: [address] IN .R.#: [id number] Admission: 02/09/21 Attend Phys: Jeff Patterson Discharge: Date of : 35 Report #: [id number] THIS REPORT FOR: cc: Yoana Woody Maggie M. DO Biggs, F. Douglas MD [facility] ~ DATE OF CONSULTATION: 02/09/2021 HISTORY OF PRESENT ILLNESS: I was asked by the ER physician and the hospitalist to see this 85-year-old white female in cardiology consultation. This lady has known coronary artery disease. She has had multiple prior myocardial infarctions, the last one of which was in the summer, I believe in October. She at that time had a non-STEMI. She had 2 stents placed in the circumflex vessel where she had had previous stent placed that was subtotally occluded. Unfortunately, her right coronary artery was occluded and her apical LAD was occluded. I believe those occlusions were both at previous stent sites. She fell a week ago and since then has had a lot of trouble. She has a lot of aches and pains. Over the last several days, she has been developing her typical anginal pain which is a substernal chest pain radiating down her left arm and sometimes down her right arm as well. Today, it was severe. It was a 10 on a scale of 10 and she required 3 nitroglycerins at home to get control of the pain and she came to the hospital. That started about noon today. She is essentially pain free now. I believe her pain lasted about 3 hours ____ before it finally went away. Today, she did have pain in both arms. Nitroglycerin definitely helped the pain. She was found to have super sensitive troponin of 51 initially and it schuyler to 283, that was on the second set. She has a third set pending. Her EKG shows normal sinus rhythm. There is low voltage throughout. There is a prolonged RI interval. There is first-degree AV block, old inferior infarct. There is inverted T-wave in one and biphasic T-wave in 3. There are flattened T waves in almost all leads. Chest x-ray is said to be normal. She is felt by the ER physician and the hospitalist to have had a non-ST segment elevation RI. PAST MEDICAL HISTORY: As described above. She has had multiple prior MIs and multiple prior stents. She also has an ischemic cardiomyopathy. She has hypercholesterolemia, essential hypertension and chronic renal failure. MEDICATIONS: Have been allopurinol 300 mg daily, aspirin 81 mg daily, Plavix 75 mg daily, Zetia 10 mg daily, ferrous sulfate 325 mg t.i.d., Lasix 40 mg daily, Neurontin 300 mg, one in the morning and two in the evening, hydrocodone and Tylenol, Trin[place] 1 q.6 hours p.r.n., Imdur 30 mg daily, Synthroid 150 mcg daily, metoprolol 75 mg daily, p.r.n. nitroglycerin, Protonix 40 mg daily, potassium 20 mEq daily, Carafate 1 gram b.i.d. and Ambien 10 mg daily at bedtime p.r.n. SOCIAL HISTORY: She does not smoke, drink or [place] [address] CONSULTATION Name: JENI GORE Room: [address] [facility] IN [facility]#: [id number] Admission: 02/09/21 Attend Phys: Jeff Patterson Discharge: Date of : 35 Report #: [id number] FAMILY HISTORY: Remarkable for coronary artery disease. REVIEW OF SYSTEMS: Positive as described above, otherwise it is unremarkable. She does have a lot of GERD symptoms however. PHYSICAL EXAMINATION:. GENERAL: She presents as an elderly white female in no acute distress. Her pulse was 66 and regular, blood pressure was 97/43. VITAL SIGNS: Temperature was 98 degrees, respirations were 18 and regular, O2 sat was 100% on nasal oxygen. HEENT: Head atraumatic. Eyes: Clear. NECK: Supple. There is no jugular venous distention or hepatojugular reflux. Thyroid is not enlarged. There is no adenopathy. SKIN: Warm and dry. Mucous membranes are moist. LUNGS: Clear to auscultation and percussion. HEART: Revealed normal first and second heart sound. There is soft S4. There is no S3. There are no murmurs, rubs, thrills, heaves or other gallops. PMI is nondisplaced. ABDOMEN: Soft, flat, nontender, no palpable masses, no organomegaly. EXTREMITIES: Reveal no cyanosis, clubbing or edema. NEUROLOGIC: The patient mentated normally, talked normally moved all extremities normally. ASSESSMENT AND PLAN: 1. Non-ST segment elevation myocardial infarction. 2. Coronary artery disease. 3. Status post prior myocardial infarctions. 4. Status post prior stents. 5. Ischemic cardiomyopathy. 6. Hypercholesterolemia. 7. Essential hypertension. 8. Chronic renal failure, stage 3. RECOMMENDATIONS: We will treat her aggressively medically for now and try to keep her free of pain. She may require IV platelet inhibitor in addition to her p.o. platelet inhibitor. She is to have increased aspirin doses and she is to continue her nitrates, metoprolol and we will put her on heparin as well for the short run. She is not particularly a good candidate for Lovenox because of her chronic renal insufficiency. I will be discussing her with Dr. Borges today. Dr. Borges has seen her in the past and has put in stents in the past. In fact, I believe that he put those in October of [place] [address] CONSULTATION Name: JEIN GORE Room: [address] IN [facility].#: [id number] Admission: 02/09/21 Attend Phys: Jeff Patterson Discharge: Date of : 35 Report #: [id number] Thank you very much for asking me to see the patient. If there are any questions, please feel free to contact me. By: [id number]. Mason Lock MD, FACC /nt
[~2021-02-09 12:42] MED LIST changes: +BAYER CHEWABLE81 MG PO
[2021-02-09 12:43] VITALS: BP 149/54
[2021-02-09 13:31] LABS: HEMATOCRIT 30.2 % (37.0-47.0); HEMOGLOBIN 9.4 gm/dL (12.0-15.0); MCH 27.7 pg (26.0-34.0); MCHC 31.2 g/dL (28.0-37.0); MCV 88.5 fL (80.0-100.0); MPV 7.2 fl. (7.2-11.1); NUCLEATED RBCS 0 /100WBC; PLATELET COUNT* 261 thou/uL (150-400); RBC 3.41 mil/uL (4.20-5.00); WBC 15.7 thou/uL (4.0-11.0)
[2021-02-09 13:42] LABS: CALCIUM 8.5 mg/dL (8.5-10.1); CREATININE 2.4 mg/dL (0.6-1.3)
[2021-02-09 13:46] LABS: INR 0.9; PROTIME 10.1 Seconds (9.20-11.50)
[2021-02-09 13:54] LABS: ALBUMIN 3.6 g/dL (3.4-5.0); CK-MB MASS 1.8 ng/mL (<0.5-3.6); MAGNESIUM 2.1 mg/dL (1.8-2.4); TOTAL BILIRUBIN 0.2 mg/dL (<0.1-1.0); TOTAL PROTEIN 7.2 g/dL (6.4-8.2)
[2021-02-09 14:07] LABS: APTT < 20.0 Seconds (25.0-31.3)
[2021-02-09 14:22] LABS: ABSOLUTE LYMPHOCYTES 0.8 thou/uL (0.8-5.3); ABSOLUTE MONOCYTES 0.2 thou/uL (0.0-1.2); ABSOLUTE NEUTROPHILS 14.8 thou/uL (1.6-8.1); PLATELET ESTIMATE ADEQUATE
--- NOTE | 2021-02-09 14:33 | EKG ---
[place] [address] ELECTROCARDIOGRAM REPORT Name: JENI GORE Room: [facility]#: [id number] Admission: 02/09/21 Attend Phys: Discharge: Date of : 35 Date of Service: 02/09/21 1323 Report #: [id number] THIS REPORT FOR: //name// [facility] ED Test Date: 2021-02-09 Test Time: 13:23:58 Pat Name: JENI GORE Department: Room: Gender: F Online Publisher: : 1935 Requested By: Kyle Liu Order Number: [id number] MD: George Borges Measurements Intervals [place] Rate: 76 P: 40 HI: 238 QRS: -26 QRSD: 76 T: -16 QT: 431 QTc: 485 Interpretive Statements Sinus rhythm Prolonged HI interval Inferior infarct, old Compared to ECG 11/17/2020 08:38:37 Early repolarization no longer present Possible ischemia no longer present Myocardial infarct finding still present Electronically Signed On 02-09-2021 14:33:11 CDT by George Borges [email or web address] <ELECTRONICALLY SIGNED> By: George Borges MD, FACC 02/09/21 1433 1323 1323 George Borges MD, [facility] /EPI
[2021-02-09 14:53] LABS: URINE BILIRUBIN NEGATIVE (Negative); URINE BLOOD 1+ (Negative); URINE CLARITY CLEAR; URINE COLOR YELLOW; URINE GLUCOSE-RANDOM NEGATIVE (Negative); URINE KETONES NEGATIVE (Negative); URINE LEUKOCYTES-REFLEX NEGATIVE (Negative); URINE NITRITE-REFLEX NEGATIVE (Negative); URINE PROTEIN NEGATIVE (Negative); URINE SPECIFIC GRAVITY 1.015 (1.005-1.030); URINE UROBILINOGEN 0.2 E.U./dl (0.2-1.0)
[2021-02-09 15:26] LABS: MUCUS None Seen strn/LPF (None Seen); SQUAMOUS 4-10 Moderate /LPF (0-3); URINE RBC 0-2 Rare /HPF (0-2)
[2021-02-09 15:27] LABS: CASTS None Seen /LPF (None Seen); CRYSTALS None Seen /LPF (None Seen); URINE WBC-REFLEX None Seen /HPF (0-5)
[2021-02-09 20:45] VITALS: BP 135/42
[2021-02-09 20:51] VITALS: BP 128/49
--- NOTE | 2021-02-09 22:00 | NUR ---
RECEIVED REPORT FROM ER, PT TO ROOM AT 2044. AMBULATED FROM CART TO BED WITH 1 ASSIST. O2 ON AT 2L/NC, HEARING AUDIBLE WHEEZING, BUT LUNG SOUNDS CLEAR. HEPERIN STARTED. UNABLE TO DO LABS ORDERED, NOTIFIED AND ORDER TO CANCEL. LABS WERE A SEND OUT SO UNABLE TO DRAW UNTIL AM AND RESULTS WOULD HAVE BEEN INACCURATE. DENIES CHEST PAIN AT THIS TIME. TELEMETRY APPLIED SHOWING SR WITH 1ST AVB. SEE ADMISSION ASSESSMENT AND HX. WILL CONT TO MONITOR AND ASSIST NEEDED.
[2021-02-10 00:23] VITALS: BP 158/70
[2021-02-10 01:49] LABS: BE -8.1 mmol/L (-2 to +3)
[2021-02-10 01:51] LABS: PO2 36.9 mmHg (75.0-100.0); pH 7.262 (7.340-7.450)
--- NOTE | 2021-02-10 02:00 | NUR ---
AT 0000 PT C/O OF CHEST PAIN, NITRO PASTE APPLIED. ASSISTED TO BSC, IMMEDIATELY BECAME WEAK, SEVERE DYSPNEA, RESTLESS AUDIBLE WHEEZING. DR NARVAEZ HERE. IVF DC'D, LASIX, SOLUMEDRAL, MORPHINE AND ATIVAN ALL GIVEN IV. CXRAY AND ABG OBTAINED. PT PLACED ON BIPAP. SOLORZANO INSERTED.
[2021-02-10 04:58] VITALS: BP 110/53
[2021-02-10 05:23] LABS: CHOLESTEROL 201 mg/dL (<200); HDL CHOLESTEROL 85 mg/dL (>40); LDL CHOLESTEROL 97 mg/dL (<100); SERUM ASSESSMENT CLEAR; TC:HDL 2.4 Ratio (Not establshd); TRIGLYCERIDE 99 mg/dL (<150); VLDL 20 mg/dL (<40)
--- NOTE | 2021-02-10 05:40 | NUR ---
PT ABLE TO REST, MUCH IMPROVED NOW, MARVEL BIPAP. WAS ABLE TO REDUCE FIO2 TO 50%. HEPARIN CONT TO INFUSE. TELEMETRY CONT TO SHOW SR WITH 1ST AVB. PT CALM AND TALKING. NPO FOR CARDIAC CATH TODAY. DENIES CP NOW.
[2021-02-10 08:00] VITALS: BP 122/59
--- NOTE | 2021-02-10 10:01 | NUR ---
CM ASSESSMENT: PT A&O, AND NORMALLY INDEPENDENT WITH ADL'S. PT RESIDES AT HOME ALONE. PT INFOMRS THAT HER SON AND NEIGHBORS ARE SUPPORTIVE AND ASSIST NEEDED. PT USES A WAKER OR CANE FOR MOBILITY. PT HAS PAST HX OF SNF AT [facility]. PT CURRENTLY ON-SERVICE WITH [facility], AND PLANS TO RESUME HH WITH [facility] AT D/C. CM WILL REMAIN AVAILABLE TO ASSIST AND FOLLOW NEEDED. [facility] PHONE: [phone] FAX: [phone]
[2021-02-10 10:39] LABS: BE -0.3 mmol/L (-2 to +3); PCO2 41.1 mmHg (35.0-45.0); pH 7.394 (7.340-7.450)
[2021-02-10 10:42] LABS: PO2 196.6 mmHg (75.0-100.0)
--- NOTE | 2021-02-10 10:49 | NUR ---
RT read ABG result from lab by this RN. Stated she will put pt on NC at this time.
[2021-02-10 11:30] VITALS: BP 136/65
--- NOTE | 2021-02-10 13:21 | NUR ---
THIS RN CALLED LAB PTT RESULTS ARE NOT IN COMPUTER YET. SHE STATED THEY HAVE HAD 2 DIFFERENT PHLEBOTOMISTS TRY TO STICK PT. HOWVER CANNOT OBTAIN. THIRD PERSON TO COME TRY NOW.
[2021-02-10 13:36] LABS: ABSOLUTE LYMPHOCYTES 0.5 thou/uL (0.8-5.3); ABSOLUTE MONOCYTES 0.1 thou/uL (0.0-1.2); ABSOLUTE NEUTROPHILS 11.1 thou/uL (1.6-8.1); BASOPHILS 0.2 %; HEMATOCRIT 31.5 % (37.0-47.0); HEMOGLOBIN 9.6 gm/dL (12.0-15.0); LYMPHOCYTES 4.3 %; MCH 27.6 pg (26.0-34.0); MCHC 30.5 g/dL (28.0-37.0); MCV 90.4 fL (80.0-100.0); MONOCYTES 0.5 %; MPV 7.9 fl. (7.2-11.1); NUCLEATED RBCS 0 /100WBC; PLATELET COUNT* 256 thou/uL (150-400); RBC 3.48 mil/uL (4.20-5.00); RDW-CV 18.6 % (10.5-14.5); WBC 11.7 thou/uL (4.0-11.0)
[2021-02-10 13:50] LABS: PROTIME 10.7 Seconds (9.20-11.50)
[2021-02-10 13:53] LABS: APTT 58.9 Seconds (25.0-31.3)
[2021-02-10 13:54] LABS: CREATININE 1.8 mg/dL (0.6-1.3); PHOSPHORUS* 3.7 mg/dL (2.5-4.9); POTASSIUM 4.1 mmol/L (3.5-5.1)
--- NOTE | 2021-02-10 14:11 | NUR ---
NO CHANGE ON HEPARIN GTT AT THIS TIME. ORDER ENTERED FOR REDRAW X6 HOURS
[2021-02-10 16:00] VITALS: BP 131/67
--- NOTE | 2021-02-10 17:01 | EKG ---
[place] [address] ELECTROCARDIOGRAM REPORT Name: JENI GORE Room: [address] ADM IN [facility].#: [id number] Admission: 02/09/21 Attend Phys: Ruiz Gilmore Discharge: Date of : 35 Date of Service: 02/09/211934 Report #: [id number] THIS REPORT FOR: //name// [facility] ED Test Date: 2021-02-09 Test Time: 19:35:08 Pat Name: JENI GORE Department: Room: [address] Gender: F Remote Sensing Surveyor: [place] : 1935 Requested By: Ruiz Gilmore Order Number: [id number] MD: George Borges Measurements Intervals [place] Rate: 76 P: 0 IN: 222 QRS: -13 QRSD: 140 T: 92 QT: 357 QTc: 402 Interpretive Statements Sinus rhythm artifact noted Prolonged IN interval Nonspecific intraventricular conduction delay Inferior infarct, old Compared to ECG 02/09/2021 13:23:58 Intraventricular conduction delay now present Myocardial infarct finding still present Electronically Signed On 02-10-2021 17:01:08 CDT by George Borges [email or web address] <ELECTRONICALLY SIGNED> By: George Borges MD, FACC 02/10/21 1701 34 34 George Borges MD, FACC /EPI
[2021-02-10 20:00] VITALS: BP 126/58
[2021-02-11] VITALS: BP 132/56
[2021-02-11 05:10] LABS: HEMATOCRIT 27.1 % (37.0-47.0); HEMOGLOBIN 8.4 gm/dL (12.0-15.0); MCH 27.7 pg (26.0-34.0); MCHC 31.2 g/dL (28.0-37.0); MCV 88.8 fL (80.0-100.0); MPV 7.9 fl. (7.2-11.1); RBC 3.05 mil/uL (4.20-5.00); RDW-CV 18.5 % (10.5-14.5)
--- NOTE | 2021-02-11 07:57 | NUR ---
ASSUMED PT CARE AT APPROX 1930. PT IS AWAKE AND ORIENTED X4. PT IS NOT IN DISTRESS, NO DESATURATIONS NOTED ON 4L OF O2/NC. PT IS TRACING SR ON THE PLANT ELECTRICAL ENGINEER. PT C/O HEADACHE, BACK PAIN RELIEVED BY PAIN MEDS GIVEN PER JUN. HEPARIN DRIP TITRATED PER PROTOCOL, BLEEDING PRECAUTIONS IMPLEMENTED.NO ACUTE CHANGES THIS SHIFT. CALL LIGHT WITHIN REACH. HOURLY ROUNDING DONE FOR PT SAFETY. HIGH FALL PRECAUTIONS IN PLACE.
[2021-02-11 08:00] VITALS: BP 157/65
[2021-02-11 09:07] LABS: CALCIUM 8.9 mg/dL (8.5-10.1); CREATININE 1.7 mg/dL (0.6-1.3)
[2021-02-11 12:00] VITALS: BP 125/59
[2021-02-11 16:00] VITALS: BP 126/59
--- NOTE | 2021-02-11 18:48 | NUR ---
HEPARIN GTT DC'D THIS AM AND PT TRANSITIONED TO HEPARIN SUBQ-REFER TO EMAR. PT COMPLAINED OF JAW PAIN, LEFT SHOULDER PAIN AND CHEST PAIN THIS AM AFTER DC'ING HEPARIN GTT. EKG OBTAINED- NO CHANGES NOTED. VITAL SIGNS STABLE. DR DUNLAP NOTIFIED AND HERE TO SEE PT. NO NEW ORDERS RECIEVED. IV MORPHINE GIVEN WITH PARTIAL RELIEF. PT STATES PAIN HAS GOTTEN MUCH BETTER THIS AFTERNOON/EVENING. PRN MORPHINE GIVEN PER EMAR WITH PARTIAL RELIEF. IV LASIX GIVEN X 1 TODAY-PT DIURESED WELL. SOLORZANO TO DEPENDENT DRAINAGE. ON 2L NC SAT MID 90'S. TRACING SR/ST ON THE STEM SHAPER. HOURLY ROUNDING OBSERVED., BED IN LOW POSITION. CALL LIGHT WITHIN REACH. WILL CONTINUE PLAN OF CARE.
[2021-02-11 20:00] VITALS: BP 147/63
[2021-02-12] VITALS: BP 131/67
[2021-02-12 04:00] VITALS: BP 137/56
[2021-02-12 04:42] LABS: HEMATOCRIT 24.9 % (37.0-47.0); HEMOGLOBIN 7.9 gm/dL (12.0-15.0)
--- NOTE | 2021-02-12 04:57 | NUR ---
ASSUMED CARE OF PT AFTER REPORT AT 1930. PT A&OX4. VSS. PHYSICAL ASSESSMENT COMPLETED AND CHARTED. PT ON O2 AT 2L-REFUSED BIPAP. PT TRACING SR ON TRE. PT UP WITH 1 ASSIST. PT COMPLAINED OF NECK, BACK & SHOULDER PAIN-MED GIVEN PER JUN. PT ABLE TO SLEEP WELL ON BED. FALL PRECAUTIONS IN PLACE. CALL LIGHT WITHIN REACH.
[2021-02-12 05:11] LABS: CALCIUM 8.6 mg/dL (8.5-10.1); CREATININE 1.4 mg/dL (0.6-1.3)
[2021-02-12 07:50] VITALS: BP 126/41
[2021-02-12 12:00] VITALS: BP 122/47
--- NOTE | 2021-02-12 15:50 | NUR ---
ASSUMED CARE OF PT AT 0730. PT A&0X4, COMPLAINED OF BACK PAIN-TREATED WITH PRN MORPHINE WITH PARTIAL RELIEF. TRACING SR ON THE INJECTION MAINTENANCE TECHNICIAN. ON 2L NC SAT MID 90'S. DENIES ANY SHORTNESS OF BREATH. SOLORZANO TO DEPENDENT DRAINAGE. PT UP WITH 1 ASSIST TO BSC. VISITOR AT BEDSIDE THIS AM. CARDIO CONSULT IN PLACE. PT UP TO CHAIR FOR LUNCH-TOLERATED FAIR. POSSIBLE DISCHARGE HOME TOMORROW 02/13. AM ASSESSMENT CHARTED. MEDICATIONS PER JUN. FALL PRECAUTIONS IN PLACE. HOURLY ROUNDING OBSERVED. BED IN LOW POSITION. CALL LIGHT WITHIN REACH. WILL CONTINUE PLAN OF CARE.
[2021-02-12 16:00] VITALS: BP 135/66
[2021-02-12 20:00] VITALS: BP 136/57
[2021-02-13] VITALS: BP 151/59
[2021-02-13 04:00] VITALS: BP 152/57
[2021-02-13 04:14] LABS: HEMATOCRIT 26.8 % (37.0-47.0); HEMOGLOBIN 8.6 gm/dL (12.0-15.0); MCH 28.6 pg (26.0-34.0); MCV 89.3 fL (80.0-100.0); MPV 7.8 fl. (7.2-11.1); RDW-CV 18.9 % (10.5-14.5); WBC 8.5 thou/uL (4.0-11.0)
--- NOTE | 2021-02-13 04:20 | NUR ---
ASSUMED CARE OF PT AFTER REPORT AT 1930. PT A&OX4. VSS. PHYSICAL ASSESSMENT COMPLETED AND CHARTED. PT ON O2 AT 2L NC. PT TRACING SR ON TELE. PT UP WITH 1 ASSIST. PT WITH SOLORZANO TO DEPENDENT DRAIN. PT COMPLAINED OF NECK, SHOULDER & BACK PAIN-MED GIVEN PER MAR. FALL PRECAUTIONS IN PLACE. CALL LIGHT WITHIN REACH.
[2021-02-13 04:46] LABS: CALCIUM 8.9 mg/dL (8.5-10.1); CREATININE 1.2 mg/dL (0.6-1.3)
[2021-02-13] MEDS ORDERED: IMDUR 30 MG TAB30 M1 PO (09:51)
[2021-02-13] MEDS ORDERED: ZETIA10 MG PO (09:52)
[2021-02-13 12:00] VITALS: BP 144/79
[2021-02-13 12:05] VITALS: BP 152/57
[2021-02-13 12:06] VITALS: BP 152/57
--- NOTE | 2021-02-13 13:24 | NUR ---
PHYSICIAN INFORMS OF PLAN FOR THE PT TO D/C TODAY HOME WITH HH. PT WAS ON-SERVICE WITH [facility] PRIOR TO ADMIT AND PLANNED TO RESUME HH WITH [facility] AT D/C. CM FAXED PT'S CLINCIAL INFO AND D/C ORDERS TO [facility], AND THEY PLAN TO VISIT THE PT TOMORROW. CM WILL REMAIN AVAILABLE TO ASSIST AND FOLLOW NEEDED. [facility] PHONE: [phone] FAX: [phone]
--- NOTE | 2021-02-13 16:02 | EKG ---
[place] [address] ELECTROCARDIOGRAM REPORT Name: JENI GORE Room: [address] DIS IN [facility].#: [id number] Admission: 02/09/21 Attend Phys: Ruiz Gilmore Discharge: 02/13/21 Date of : 35 Date of Service: 02/11/21 0924 Report #: [id number] THIS REPORT FOR: //name// [facility] Test Date: 2021-02-11 Test Time: 09:24:06 Pat Name: JENI GORE Department: Room: [address] Gender: F Web Content Producer: CHIP : 1935 Requested By: George Borges Order Number: [id number] Reading MD: George Borges Measurements Intervals [place] Rate: 105 P: 73 [place]: 213 QRS: -22 QRSD: 78 T: 152 QT: 321 QTc: 425 Interpretive Statements Sinus tachycardia Borderline prolonged [place] interval Inferior infarct, old Repol abnrm suggests ischemia, diffuse leads Baseline wander in lead(s) V2 Compared to ECG 02/09/2021 19:35:08 Early repolarization now present Sinus rhythm no longer present Myocardial infarct finding still present Electronically Signed On 02-13-2021 16:02:00 CDT by George Borges [email or web address] <ELECTRONICALLY SIGNED> By: George Borges MD, [facility] 02/13/21 1602 3 3 George Borges MD, [facility] /EPI
--- NOTE | 2021-02-13 16:14 | EKG ---
[place] [address] ELECTROCARDIOGRAM REPORT Name: JENI GORE Room: [address] IN [facility]#: [id number] Admission: 02/09/21 Attend Phys: Ruiz Gilmore Discharge: 02/13/21 Date of : 35 Date of Service: 02/13/21 0938 Report #: [id number] THIS REPORT FOR: //name// [facility] Test Date: 2021-02-13 Test Time: 09:38:16 Pat Name: JENI GORE Department: Room: [address] Gender: F Security Systems Administrator: CAESAR : 1935 Requested By: George Borges Order Number: [id number] Yonis MD: George Borges Measurements Intervals [place] Rate: 84 P: 30 NE: 213 QRS: -19 QRSD: 84 T: 56 QT: 386 QTc: 457 Interpretive Statements Sinus rhythm Borderline prolonged [place] interval Inferior infarct, old Anterior infarct, old Compared to ECG 02/11/2021 09:24:06 Sinus tachycardia no longer present Early repolarization no longer present Myocardial infarct finding still present Electronically Signed On 02-13-2021 16:13:59 CDT by George Borges [email or web address] <ELECTRONICALLY SIGNED> By: George Borges MD, FACC 02/13/21 1613 George Borges MD, FACC /EPI
== END 2021-02-13 12:40 | disposition home health service (06) | DRG 280 ==
LOC: M.ERS 12:42 → M.2W 15:25 → M.TBA-ER 15:25 → M.2W 21:09
PROVIDERS: Emergency Medicine; Family Medicine; Internal Medicine; Internal Medicine Cardiovascular Disease; ADMIT Internal Medicine; ATTEND Internal Medicine
PROC: 5A09357 Assistance with Respiratory Ventilation, Less than 24 Consecutive Hours, Continuous Positive Airway Pressure (ICD-10-PCS; principal; 2021-02-10)
PROC: 5A09357 Assistance with Respiratory Ventilation, Less than 24 Consecutive Hours, Continuous Positive Airway Pressure (ICD-10-PCS; 2021-02-11)
DX: I21.4 Non-ST elevation (NSTEMI) myocardial infarction (principal); J96.01 Acute respiratory failure with hypoxia; N17.0 Acute kidney failure with tubular necrosis; I50.21 Acute systolic (congestive) heart failure; I13.0 Hypertensive heart and chronic kidney disease with heart failure and stage 1 through stage 4 chronic kidney disease, or unspecified chronic kidney disease; N39.0 Urinary tract infection, site not specified; Z96.652 Presence of left artificial knee joint; E78.00 Pure hypercholesterolemia, unspecified; I25.10 Atherosclerotic heart disease of native coronary artery without angina pectoris; I25.5 Ischemic cardiomyopathy; N18.30 Chronic kidney disease, stage 3 unspecified; D64.9 Anemia, unspecified; D72.829 Elevated white blood cell count, unspecified; T38.0X5A Adverse effect of glucocorticoids and synthetic analogues, initial encounter; Z20.822 Contact with and (suspected) exposure to COVID-19; D50.9 Iron deficiency anemia, unspecified; I25.2 Old myocardial infarction; Z90.710 Acquired absence of both cervix and uterus; Z90.722 Acquired absence of ovaries, bilateral; Z95.5 Presence of coronary angioplasty implant and graft; Z85.42 Personal history of malignant neoplasm of other parts of uterus; Z88.2 Allergy status to sulfonamides; Z88.8 Allergy status to other drugs, medicaments and biological substances; Z82.49 Family history of ischemic heart disease and other diseases of the circulatory system; Z86.73 Personal history of transient ischemic attack (TIA), and cerebral infarction without residual deficits; Y92.89 Other specified places as the place of occurrence of the external cause